=== PATIENT | female | born 1950 | race Two or more races ===

== ENCOUNTER 2018-11-14 03:20 | Inpatient (IN) | payer MEDICARE, OTHER ==
[~2018-11-14] VITALS: Ht 154.9 cm; Wt 71.7 kg
[2018-11-14 06:00] VITALS: BP 122/66
--- NOTE | 2018-11-14 07:30 | NUR ---
NURSE NOTES: received pt in bed, awake, alert, no pain or discomfort at this time. IV access on the RAC 20g, pervious. Skin is intact, no open wound. Abdomen soft, tender at pressure. pt reports constipation x4 days, and dribbling, urinary frequency. Call light within easy reach, siderails upx2, bed locked at the lowest position. Will continue to monitor pt and follow up with the plan of care.
[2018-11-14 08:00] VITALS: BP 116/65
--- NOTE | 2018-11-14 08:07 | NUR ---
HAND-OFF: Report given to CLARISA Anand.
[2018-11-14] MEDS ORDERED: Morphine Sulfate 2mg/ml Inj(IV/IM USE ONLY) IVP PRN (09:00)
[2018-11-14 09:56] LABS: BASOPHILS % (AUTO) 0.7 % (0.0-2.0); EOSINOPHILS % (AUTO) 0.7 % (0.0-3.0); HEMATOCRIT 38.6 % (37.0-47.0); HEMOGLOBIN 13.3 G/DL (12.0-16.0); LYMPHOCYTES % (AUTO) 13.7 % (20.0-45.0); MEAN CORPUSCULAR VOLUME 88 FL (80-99); NEUTROPHILS % (AUTO) 77.8 % (45.0-75.0); PLATELET COUNT 288 K/UL (150-450); RED BLOOD COUNT 4.37 M/UL (4.20-5.40); RED CELL DISTRIBUTION WIDTH 11.3 % (11.6-14.8); WHITE BLOOD COUNT 12.5 K/UL (4.8-10.8)
[2018-11-14 09:58] LABS: ALANINE AMINOTRANSFERASE 31 U/L (12-78); ALBUMIN 2.9 G/DL (3.4-5.0); ALBUMIN/GLOBULIN RATIO 0.7 (1.0-2.7); ALKALINE PHOSPHATASE 70 U/L (46-116); ANION GAP 7 mmol/L (5-15); ASPARTATE AMINO TRANSFERASE 22 U/L (15-37); BILIRUBIN,TOTAL 0.8 MG/DL (0.2-1.0); BLOOD UREA NITROGEN 16 mg/dL (7-18); CALCIUM 8.3 MG/DL (8.5-10.1); CARBON DIOXIDE 26 MMOL/L (21-32); CHLORIDE 104 MMOL/L (98-107); CREATININE 1.2 MG/DL (0.55-1.30); PHOSPHORUS 3.3 MG/DL (2.5-4.9); POTASSIUM 3.7 MMOL/L (3.5-5.1); SODIUM 137 MMOL/L (136-145)
[2018-11-14] MEDS ORDERED: Magnesium Citrate Liq Btl ORAL ONE (10:30)
[2018-11-14] MEDS: D5 1/2NS 1,000 ML IV SCH ×2 (11:48→23:05)
[2018-11-14 12:00] VITALS: BP 109/58
[2018-11-14] MEDS: Heparin 5000 units/ml inj SUBQ SCH ×2 (13:26→21:10)
[2018-11-14 16:00] VITALS: BP 121/70
[2018-11-14] MEDS ORDERED: Isovue-300 100ml vial INJ PRN (16:30)
--- NOTE | 2018-11-14 16:39 | History & Physical ---
History and Physical History & Physicial Dictated for Int Med-DR Monterroso no. [id number] Carlo Crocker MD Nov 14, 2018 16:39
--- NOTE | 2018-11-14 18:00 | Consultation ---
DATE OF CONSULTATION: 11/14/2018 CONSULTING PHYSICIAN: Marv Clark M.D. REFERRING PHYSICIAN: Dion Monterroso M.D. REASON FOR CONSULTATION: Evaluation of nephrolithiasis. HISTORY OF PRESENT ILLNESS: This is a 68-year-old female. She has a history of abdominal pain and was taken to a local [facility] facility where she was evaluated. Apparently, she did have pain on both the right and left side of her abdomen. She had a workup including a CT scan that showed an 18 mm stone of the left UPJ, that is ureteropelvic junction with some hydronephrosis. There was also a question of gallbladder issues. She was subsequently transferred here to [place]. Followup urology evaluation was requested. The patient at this time is relatively comfortable. She does have some urinary frequency, but no burning. PAST MEDICAL HISTORY: As above. PAST SURGICAL HISTORY: Unknown. MEDICATIONS: Current medication list in the hospital reviewed. She is currently on heparin, [place], and Zofran. ALLERGIES: No known drug allergies. SOCIAL HISTORY: She is a nonsmoker. FAMILY HISTORY: Noncontributory. REVIEW OF SYSTEMS: As above. PHYSICAL EXAMINATION: GENERAL: An elderly female in no acute distress. VITAL SIGNS: Temperature is 98.1, blood pressure 116/65, pulse 74, and respirations 20. HEENT: Normocephalic. NECK: Supple. ABDOMEN: Soft. There is minimal CVA tenderness. EXTREMITIES: No clubbing or cyanosis. LABORATORY DATA: White count is 12.5, hemoglobin 13.3, and platelets 288,000. There is no UA on file here at [place]. She did have UA at [facility] that showed a dip positive for blood. BUN is 16 and creatinine 1.2. She apparently did have a renal ultrasound, result is pending. ASSESSMENT: 1. Left-sided nephrolithiasis. 2. Hydronephrosis. 3. Renal colic secondary to above. 4. Urinary frequency. 5. Hematuria. 6. Rule out neurogenic bladder. PLAN AND DISCUSSION: Again, the patient has a relatively large stone of the left ureteropelvic junction with some hydronephrosis. This has likely been there for some time. She did have some pain, which is better now. She will be monitored. We will follow up on the results of the renal ultrasound and I will also order a KUB and go from there. At some point, she will probably need to have lithotripsy procedure with stent placement. I did discuss this with her and we will schedule this based on her pain status. Thank you, Dr. Monterroso, for asking me to see this patient in consultation. Marv Clark M.D. DR: TREVIN JOB#: [id number] CC:
--- NOTE | 2018-11-14 18:00 | NUR ---
NURSE NOTES: Strained all urine voided at the plastic "hat", no stone particle found. Done TWE, pt had large amount of brown BM at the toilet. No complain of pain, nausea or vomiting throughout the shift.
--- NOTE | 2018-11-14 19:03 | NUR ---
HAND-OFF: Report given to CLARISA Johnson.
--- NOTE | 2018-11-14 19:41 | Consultation ---
History of Present Illness Present Illness Allergies: Coded Allergies: No Known Allergies (Unverified , 11/14/18) Patient History Healthcare decision maker Resuscitation status Full Code Advanced Directive on File Physical Exam Last 24 Hour Vital Signs Date Time Temp Pulse Resp B/P (MAP) Pulse Ox O2 Delivery O2 Flow Rate FiO2 11/14/18 16:00 98.8 77 18 121/70 (87) 94 11/14/18 12:00 97.1 80 20 109/58 (75) 93 11/14/18 10:00 Room Air 11/14/18 08:00 98.1 74 20 116/65 (82) 94 11/14/18 06:00 98.2 76 16 122/66 (84) 93 Laboratory Tests Test 11/14/18 09:25 White Blood Count 12.5 K/UL (4.8-10.8) H Red Blood Count 4.37 M/UL (4.20-5.40) Hemoglobin 13.3 G/DL (12.0-16.0) Hematocrit 38.6 % (37.0-47.0) Mean Corpuscular Volume 88 FL (80-99) Mean Corpuscular Hemoglobin 30.4 PG (27.0-31.0) Mean Corpuscular Hemoglobin Concent 34.4 G/DL (32.0-36.0) Red Cell Distribution Width 11.3 % (11.6-14.8) L Platelet Count 288 K/UL (150-450) Mean Platelet Volume 5.9 FL (6.5-10.1) L Neutrophils (%) (Auto) 77.8 % (45.0-75.0) H Lymphocytes (%) (Auto) 13.7 % (20.0-45.0) L Monocytes (%) (Auto) 7.0 % (1.0-10.0) Eosinophils (%) (Auto) 0.7 % (0.0-3.0) Basophils (%) (Auto) 0.7 % (0.0-2.0) Sodium Level 137 MMOL/L (136-145) Potassium Level 3.7 MMOL/L (3.5-5.1) Chloride Level 104 MMOL/L (98-107) Carbon Dioxide Level 26 MMOL/L (21-32) Anion Gap 7 mmol/L (5-15) Blood Urea Nitrogen 16 mg/dL (7-18) Creatinine 1.2 MG/DL (0.55-1.30) Estimat Glomerular Filtration Rate 45.0 mL/min (>60) Glucose Level 102 MG/DL (74-106) Calcium Level 8.3 MG/DL (8.5-10.1) L Phosphorus Level 3.3 MG/DL (2.5-4.9) Magnesium Level 2.2 MG/DL (1.8-2.4) Total Bilirubin 0.8 MG/DL (0.2-1.0) Aspartate Amino Transf (AST/SGOT) 22 U/L (15-37) Alanine Aminotransferase (ALT/SGPT) 31 U/L (12-78) Alkaline Phosphatase 70 U/L (46-116) Total Protein 6.9 G/DL (6.4-8.2) Albumin 2.9 G/DL (3.4-5.0) L Globulin 4.0 g/dL Albumin/Globulin Ratio 0.7 (1.0-2.7) L Height (Feet): 5 Height (Inches): 1.00 Weight (Pounds): 160 Medications Current Medications Medications (Trade) Dose Ordered Sig/Danielle Route PRN Reason Start Time Stop Time Status Last Admin Dose Admin Acetaminophen (Tylenol) 650 mg Q6H PRN ORAL Mild Pain/Temp > 100.5 11/14/18 09:00 12/14/18 08:59 Acetaminophen/ Hydrocodone Bitart ([place] 5/325) 1 tab Q6H PRN ORAL Moderate Pain (Pain Scale 4-6) 11/14/18 09:00 11/21/18 08:59 Barium Sulfate (Readi-Cat 2) 450 ml NOW PRN ORAL Radiology Procedure 11/14/18 16:30 11/16/18 16:28 Dextrose/Sodium Chloride 1,000 ml @ 75 mls/hr [id number] IV 11/14/18 09:45 12/14/18 09:44 11/14/18 11:48 Heparin Sodium (Porcine) (Heparin 5000 units/ml) 5,000 units EVERY 8 HOURS SUBQ 11/14/18 14:00 12/14/18 13:59 11/14/18 13:26 Iopamidol (Isovue-300 100ml) 100 ml NOW PRN INJ Radiology Procedure 11/14/18 16:30 11/16/18 16:29 Morphine Sulfate (Morphine Sulfate) 2 mg Q4H PRN IVP Severe Pain (Pain Scale 7-10) 11/14/18 09:00 11/21/18 08:59 Ondansetron HCl (Zofran) 4 mg Q4H PRN IVP Nausea & Vomiting 11/14/18 09:00 12/14/18 08:59 Kala Bhat MD Nov 14, 2018 19:41
[2018-11-14 20:00] VITALS: BP_SYST 121; BP_SYST 142; BP_DIAS 70
--- NOTE | 2018-11-14 20:00 | History and Physical Report ---
DATE OF ADMISSION: 11/14/2018 CHIEF COMPLAINT: The patient is a 68-year-old female, who presents with chief complaint of left flank pain, nausea, and vomiting. HISTORY OF PRESENT ILLNESS: It began four days prior to admission. The patient began to experience left flank pain. The pain now radiates to the periumbilical region. The patient initially presented to [facility] emergency room. A CT scan of the abdomen revealed a 19 mm obstructing left ureteral pelvic junction calculus. Of note, there was also a distended gallbladder with sludge noted. The patient is transferred to [facility] for insurance purposes. The patient is admitted with left ureteropelvic junction calculus. REVIEW OF SYSTEMS: CONSTITUTIONAL: The patient denies weight loss or gain. The patient denies fevers or chills. HEENT: The patient denies ear or throat pain. The patient denies headache. CARDIOVASCULAR: The patient denies palpitation or chest pain. CHEST: The patient denies wheeze or shortness of breath. ABDOMINAL: The patient complains of left flank pain, radiating to the periumbilical region as above. The patient complains of nausea and vomiting as above. The patient complains of constipation. The patient denies diarrhea. GENITOURINARY: The patient denies dysuria, hematuria, or increased frequency of urination. NEUROMUSCULAR: The patient denies seizures or generalized weakness. PAST MEDICAL HISTORY: The patient denies. PAST SURGICAL HISTORY: Significant for bilateral ovarian cyst removal. CURRENT MEDICATIONS: The patient denies. ALLERGIES: No known drug allergies. SOCIAL HISTORY: The patient is . The patient denies tobacco use, having quit many years previously. The patient denies alcohol use. PHYSICAL EXAMINATION: VITAL SIGNS: Temperature 99.2, respirations 18, pulse 96, blood pressure 119/54. GENERAL: The patient is a well-developed, well-nourished, slightly obese, female, in no apparent distress. HEENT: Eyes, pupils are equal and responsive to light and accommodation. Extraocular movements are intact. NECK: Supple without lymphadenopathy. CHEST: Lungs are clear to auscultation bilaterally without wheezes or rales. CARDIOVASCULAR: Regular rate. S1 and S2 normal without murmurs, rubs, or gallops. ABDOMEN: Soft, tenderness to palpation on the left lower quadrant without rebound or guarding. No evidence of hepatosplenomegaly. EXTREMITIES: Negative for clubbing, cyanosis, or edema. RECTAL/GENITAL: Refused. NEUROLOGIC: Cranial nerves II through XII are grossly intact without focal deficits. Motor strength is 5/5 bilaterally. Deep tendon reflexes are 2+ plantar. LABORATORY STUDIES: WBC 12.8, hemoglobin 14.3, hematocrit 42.1, and platelets 283,000. Sodium 133, potassium 3.3, chloride 97, CO2 27, BUN 18, creatinine 1.03. Urinalysis showed 2+ leukocyte esterase. CT scan of the abdomen and pelvis revealed 19 mm left ureteropelvic junction calculus with obstruction. ASSESSMENT: This is a 68-year-old female. 1. Left flank pain. 2. Left ureteropelvic junction calculus. 3. Nausea with vomiting. 4. Incidental finding of cholecystitis. TREATMENT: 1. Left flank pain/left ureteropelvic junction calculus. A Urology consultation has been obtained with Dr. Clark. The patient may require cystoscopy with stone removal. We will follow recommendations of Urology. The patient has been receiving morphine for pain control. 2. Nausea with vomiting. The patient has been offered Zofran p.r.n. for nausea and vomiting. Nausea and vomiting may be secondary to acute cholecystitis versus left ureteropelvic junction calculus as above. 3. Cholecystitis. A General Surgery consultation has been obtained with Dr. Medellin. The patient was evaluated by surgery at [facility] and was deemed to be not eligible for surgery at this time. Carlo Crocker M.D. DR: ANGELA JOB#: [id number] CC:
--- NOTE | 2018-11-14 20:00 | NUR ---
NURSE NOTES: PATIENT IN BED, AWAKE, ALERT, VERBALLY RESPONSIVE. IV IN PLACE, RUNNING FLUIDS. STRAINED URINE, NO STONES NOTED. NO S/S DISTRESS NOTED. BED IN LOWEST POSITION, CALL LIGHT WITHIN REACH, BED ALARM ON. WILL CONTINUE TO MONITOR.
--- NOTE | 2018-11-14 20:10 | Consultation ---
History of Present Illness Present Illness HPI This is a 68-year-old female presented to [facility] for evaluation of worsening abdominal pain left flank pain nausea and emesis. Patient states that it for a few days and has stayed intermittent causing her discomfort. Upon admission surgery called to evaluate for abdominal pain. Patient seen, patient evaluated, chart reviewed. States the pain is still present but mildly better with pain medication. Imaging as below. Leukocytosis on admission pain described as cramping lower abdominal left flank discomfort Allergies: Coded Allergies: No Known Allergies (Unverified , 11/14/18) Patient History History Provided By: Patient, Medical Record, PMD Healthcare decision maker Resuscitation status Full Code Advanced Directive on File Past Medical/Surgical History Past Medical/Surgical History: (1) Abdominal pain (2) Kidney stone Review of Systems Review of Symptoms General ROS: no weight loss or fever Psychological ROS: no depression or mood changes, no memory loss Ophthalmic ROS: no visual changes or eye irritation ENT ROS: no nasal congestion, hearing loss, dizziness Allergy and Immunology ROS: no allergic symptoms or urticaria Hematological and Lymphatic ROS: no swollen glands, unusual bleeding or bruising Endocrine ROS: no polyuria, polydipsia, weight changes, temperature intolerance Respiratory ROS: no cough, shortness of breath, or wheezing Cardiovascular ROS: no chest pain or dyspnea on exertion Gastrointestinal ROS: abdominal pain, no bright red blood in stool. Musculoskeletal ROS: no myalgias or arthralgias Neurological ROS: no TIA or stroke symptoms Dermatological ROS: no new or changing skin lesions, rashes or pruritis Physical Exam Physical Exam General appearance: alert, cooperative, no distress, appears stated age Head: Normocephalic, without obvious abnormality, atraumatic Eyes: conjunctivae/corneas clear. PERRL, EOM's intact. Fundi benign Throat: Lips, mucosa, and tongue normal. Teeth and gums normal Neck: supple, symmetrical, trachea midline, no adenopathy, thyroid: not enlarged, symmetric, no tenderness/mass/nodules, no carotid bruit and no JVD Lungs: clear to auscultation bilaterally Heart: regular rate and rhythm, S1, S2 normal, no murmur, click, rub or gallop Abdomen: soft, non-tender. Bowel sounds normal. No masses, no organomegaly. left flank tender Extremities: extremities normal, atraumatic, no cyanosis or edema Pulses: 2+ and symmetric Skin: Skin color, texture, turgor normal. No rashes or lesions Neurologic: Grossly normal Last 24 Hour Vital Signs Date Time Temp Pulse Resp B/P (MAP) Pulse Ox O2 Delivery O2 Flow Rate FiO2 11/14/18 16:00 98.8 77 18 121/70 (87) 94 11/14/18 12:00 97.1 80 20 109/58 (75) 93 11/14/18 10:00 Room Air 11/14/18 08:00 98.1 74 20 116/65 (82) 94 11/14/18 06:00 98.2 76 16 122/66 (84) 93 Laboratory Tests Test 11/14/18 09:25 White Blood Count 12.5 K/UL (4.8-10.8) H Red Blood Count 4.37 M/UL (4.20-5.40) Hemoglobin 13.3 G/DL (12.0-16.0) Hematocrit 38.6 % (37.0-47.0) Mean Corpuscular Volume 88 FL (80-99) Mean Corpuscular Hemoglobin 30.4 PG (27.0-31.0) Mean Corpuscular Hemoglobin Concent 34.4 G/DL (32.0-36.0) Red Cell Distribution Width 11.3 % (11.6-14.8) L Platelet Count 288 K/UL (150-450) Mean Platelet Volume 5.9 FL (6.5-10.1) L Neutrophils (%) (Auto) 77.8 % (45.0-75.0) H Lymphocytes (%) (Auto) 13.7 % (20.0-45.0) L Monocytes (%) (Auto) 7.0 % (1.0-10.0) Eosinophils (%) (Auto) 0.7 % (0.0-3.0) Basophils (%) (Auto) 0.7 % (0.0-2.0) Sodium Level 137 MMOL/L (136-145) Potassium Level 3.7 MMOL/L (3.5-5.1) Chloride Level 104 MMOL/L (98-107) Carbon Dioxide Level 26 MMOL/L (21-32) Anion Gap 7 mmol/L (5-15) Blood Urea Nitrogen 16 mg/dL (7-18) Creatinine 1.2 MG/DL (0.55-1.30) Estimat Glomerular Filtration Rate 45.0 mL/min (>60) Glucose Level 102 MG/DL (74-106) Calcium Level 8.3 MG/DL (8.5-10.1) L Phosphorus Level 3.3 MG/DL (2.5-4.9) Magnesium Level 2.2 MG/DL (1.8-2.4) Total Bilirubin 0.8 MG/DL (0.2-1.0) Aspartate Amino Transf (AST/SGOT) 22 U/L (15-37) Alanine Aminotransferase (ALT/SGPT) 31 U/L (12-78) Alkaline Phosphatase 70 U/L (46-116) Total Protein 6.9 G/DL (6.4-8.2) Albumin 2.9 G/DL (3.4-5.0) L Globulin 4.0 g/dL Albumin/Globulin Ratio 0.7 (1.0-2.7) L Height (Feet): 5 Height (Inches): 1.00 Weight (Pounds): 160 Medications Current Medications Medications (Trade) Dose Ordered Sig/Danielle Route PRN Reason Start Time Stop Time Status Last Admin Dose Admin Acetaminophen (Tylenol) 650 mg Q6H PRN ORAL Mild Pain/Temp > 100.5 11/14/18 09:00 12/14/18 08:59 Acetaminophen/ Hydrocodone Bitart ([place] 5/325) 1 tab Q6H PRN ORAL Moderate Pain (Pain Scale 4-6) 11/14/18 09:00 11/21/18 08:59 Barium Sulfate (Readi-Cat 2) 450 ml NOW PRN ORAL Radiology Procedure 11/14/18 16:30 11/16/18 16:28 Dextrose/Sodium Chloride 1,000 ml @ 75 mls/hr [id number] IV 11/14/18 09:45 12/14/18 09:44 11/14/18 11:48 Heparin Sodium (Porcine) (Heparin 5000 units/ml) 5,000 units EVERY 8 HOURS SUBQ 11/14/18 14:00 12/14/18 13:59 11/14/18 13:26 Iopamidol (Isovue-300 100ml) 100 ml NOW PRN INJ Radiology Procedure 11/14/18 16:30 11/16/18 16:29 Morphine Sulfate (Morphine Sulfate) 2 mg Q4H PRN IVP Severe Pain (Pain Scale 7-10) 11/14/18 09:00 11/21/18 08:59 Ondansetron HCl (Zofran) 4 mg Q4H PRN IVP Nausea & Vomiting 11/14/18 09:00 12/14/18 08:59 Assessment/Plan Problem List: (1) Abdominal pain Assessment & Plan: 68-year-old female with abdominal pain, nausea, emesis, leukocytosis. Elevated ESR and CRP. On examination abdomen fairly benign but does have left flank tenderness. Nephrolithiasis as per urology. Appreciate urology input. No acute general surgery intervention recommended. Okay for diet from surgical standpoint We will follow with serial abdominal examinations thank you for allowing me to participate in patient's care trend labs ICD Codes: R10.9 - Unspecified abdominal pain SNOMED: 85125198 (2) Kidney stone ICD Codes: N20.0 - Calculus of kidney SNOMED: [id number] Thomas Medellin Nov 14, 2018 20:10
[2018-11-14] MEDS: HYDROcodone/Acetamin 5/325 tab ORAL PRN (21:02)
--- NOTE | 2018-11-14 21:02 | NUR ---
NURSE NOTES: PATIENT HAD COMPLAINTS OF PAIN. [place] PRN WAS GIVEN ORDERED. FAMILY AT BEDSIDE. PATIENT MADE AWARE OF NPO STATUS AT MIDNIGHT, PATIENT VERBALIZED UNDERSTANDING. WILL CONTINUE TO MONITOR.
[2018-11-14 22:49] LABS: APPEARANCE,URINE CLEAR; BILIRUBIN, URINE NEGATIVE (NEGATIVE); COLOR,URINE PALE YELLOW; GLUCOSE, URINE (UA) NEGATIVE (NEGATIVE); KETONES,URINE NEGATIVE (NEGATIVE); LEUKOCYTE ESTERASE ,URINE 3+ (NEGATIVE); NITRITE,URINE NEGATIVE (NEGATIVE); PH,URINE 6 (4.5-8.0); PROTEIN,URINE 1+ (NEGATIVE); UROBILINOGEN,URINE NORMAL MG/DL (0.0-1.0)
[2018-11-15] VITALS: BP 112/65
[2018-11-15] MEDS: D5 1/2NS 1,000 ML IV SCH ×2 (03:19→21:15)
[2018-11-15 04:20] VITALS: BP 112/65
[2018-11-15] MEDS: Heparin 5000 units/ml inj SUBQ SCH ×3 (05:56→21:14)
--- NOTE | 2018-11-15 06:08 | NUR ---
NURSE NOTES: STRAINED URINE, NO STONES NOTED.
--- NOTE | 2018-11-15 07:16 | NUR ---
HAND-OFF: Report given to MICHAEL ALMONTE RN.
[2018-11-15 07:47] LABS: BASOPHILS % (AUTO) 1.2 % (0.0-2.0); EOSINOPHILS % (AUTO) 2.9 % (0.0-3.0); HEMATOCRIT 40.5 % (37.0-47.0); HEMOGLOBIN 13.8 G/DL (12.0-16.0); LYMPHOCYTES % (AUTO) 24.8 % (20.0-45.0); MEAN CORPUSCULAR VOLUME 89 FL (80-99); MONOCYTES % (AUTO) 6.3 % (1.0-10.0); NEUTROPHILS % (AUTO) 64.9 % (45.0-75.0); PLATELET COUNT 323 K/UL (150-450); RED BLOOD COUNT 4.57 M/UL (4.20-5.40); RED CELL DISTRIBUTION WIDTH 11.3 % (11.6-14.8); WHITE BLOOD COUNT 8.1 K/UL (4.8-10.8)
[2018-11-15 08:00] VITALS: BP 122/62
[2018-11-15 08:05] LABS: ALANINE AMINOTRANSFERASE 36 U/L (12-78); ALBUMIN 2.9 G/DL (3.4-5.0); ALBUMIN/GLOBULIN RATIO 0.6 (1.0-2.7); ALKALINE PHOSPHATASE 76 U/L (46-116); ANION GAP 7 mmol/L (5-15); ASPARTATE AMINO TRANSFERASE 30 U/L (15-37); BILIRUBIN,TOTAL 0.5 MG/DL (0.2-1.0); BLOOD UREA NITROGEN 14 mg/dL (7-18); CALCIUM 8.8 MG/DL (8.5-10.1); CARBON DIOXIDE 28 MMOL/L (21-32); CHLORIDE 101 MMOL/L (98-107); CREATININE 1.1 MG/DL (0.55-1.30); POTASSIUM 3.5 MMOL/L (3.5-5.1); SODIUM 136 MMOL/L (136-145)
--- NOTE | 2018-11-15 08:05 | Urology Progress Note ---
Assessment/Plan Assessment/Plan: 1. Left-sided nephrolithiasis. 2. Hydronephrosis. 3. Renal colic secondary to above. 4. Urinary frequency. 5. Hematuria. 6. Rule out neurogenic bladder. monitor clinically await KUB will eventually need litho/stent I don't feel repeat CT is necessary (pt had one at [place]) Subjective Allergies: Coded Allergies: No Known Allergies (Unverified , 11/14/18) Subjective all noted, felt better after had BM, not much pain Objective Last 24 Hour Vital Signs Date Time Temp Pulse Resp B/P (MAP) Pulse Ox O2 Delivery O2 Flow Rate FiO2 11/15/18 00:00 97.3 61 18 112/65 (81) 93 11/14/18 22:52 Room Air 11/14/18 21:32 98.8 11/14/18 20:00 98.4 76 18 142/70 (94) 95 11/14/18 16:00 98.8 77 18 121/70 (87) 94 11/14/18 12:00 97.1 80 20 109/58 (75) 93 11/14/18 10:00 Room Air Intake and Output 11/14/18 11/15/18 19:00 07:00 Intake Total 950 ml 750 ml Balance 950 ml 750 ml Intake IV Total 450 ml 750 ml Other 500 ml # Voids 2 Current Medications Medications (Trade) Dose Ordered Sig/Danielle Route PRN Reason Start Time Stop Time Status Last Admin Dose Admin Acetaminophen (Tylenol) 650 mg Q6H PRN ORAL Mild Pain/Temp > 100.5 11/14/18 09:00 12/14/18 08:59 Acetaminophen/ Hydrocodone Bitart ([place] 5/325) 1 tab Q6H PRN ORAL Moderate Pain (Pain Scale 4-6) 11/14/18 09:00 11/21/18 08:59 11/14/18 21:02 Barium Sulfate (Readi-Cat 2) 450 ml NOW PRN ORAL Radiology Procedure 11/14/18 16:30 11/16/18 16:28 Dextrose/Sodium Chloride 1,000 ml @ 75 mls/hr [id number] IV 11/14/18 09:45 12/14/18 09:44 11/15/18 03:19 Heparin Sodium (Porcine) (Heparin 5000 units/ml) 5,000 units EVERY 8 HOURS SUBQ 11/14/18 14:00 12/14/18 13:59 11/15/18 05:56 Iopamidol (Isovue-300 100ml) 100 ml NOW PRN INJ Radiology Procedure 11/14/18 16:30 11/16/18 16:29 Morphine Sulfate (Morphine Sulfate) 2 mg Q4H PRN IVP Severe Pain (Pain Scale 7-10) 11/14/18 09:00 11/21/18 08:59 Ondansetron HCl (Zofran) 4 mg Q4H PRN IVP Nausea & Vomiting 11/14/18 09:00 12/14/18 08:59 Laboratory Tests 11/14/18 09:25: White Blood Count 12.5H, Red Blood Count 4.37, Hemoglobin 13.3, Hematocrit 38.6 , Mean Corpuscular Volume 88, Mean Corpuscular Hemoglobin 30.4, Mean Corpuscular Hemoglobin Concent 34.4, Red Cell Distribution Width 11.3L, Platelet Count 288, Mean Platelet Volume 5.9L, Neutrophils (%) (Auto) 77.8H, Lymphocytes (%) (Auto) 13.7L, Monocytes (%) (Auto) 7.0, Eosinophils (%) (Auto) 0.7, Basophils (%) (Auto) 0.7, Sodium Level 137, Potassium Level 3.7, Chloride Level 104, Carbon Dioxide Level 26, Anion Gap 7, Blood Urea Nitrogen 16, Creatinine 1.2, Estimat Glomerular Filtration Rate 45.0, Glucose Level 102, Calcium Level 8.3L, Phosphorus Level 3.3, Magnesium Level 2.2, Total Bilirubin 0.8, Aspartate Amino Transf (AST/SGOT) 22, Alanine Aminotransferase (ALT/SGPT) 31, Alkaline Phosphatase 70, Total Protein 6.9, Albumin 2.9L, Globulin 4.0, Albumin/Globulin Ratio 0.7L 11/14/18 19:50: Urine Color Pale yellow, Urine Appearance Clear, Urine pH 6, Urine Specific [place] 1.010, Urine Protein 1+H, Urine Glucose (UA) Negative, Urine Ketones Negative, Urine Blood 3+H, Urine Nitrite Negative, Urine Bilirubin Negative, Urine Urobilinogen Normal, Urine Leukocyte Esterase 3+H, Urine RBC 5-10H, Urine WBC 10-15H, Urine Squamous Epithelial Cells Few, Urine Bacteria Few 11/15/18 06:45: White Blood Count 8.1, Red Blood Count 4.57, Hemoglobin 13.8, Hematocrit 40.5, Mean Corpuscular Volume 89, Mean Corpuscular Hemoglobin 30.2, Mean Corpuscular Hemoglobin Concent 34.1, Red Cell Distribution Width 11.3L, Platelet Count 323, Mean Platelet Volume 6.3L, Neutrophils (%) (Auto) 64.9, Lymphocytes (%) (Auto) 24.8, Monocytes (%) (Auto) 6.3, Eosinophils (%) (Auto) 2.9, Basophils (%) (Auto ) 1.2, Sodium Level [Pending], Potassium Level [Pending], Chloride Level [ Pending], Carbon Dioxide Level [Pending], Blood Urea Nitrogen [Pending], Creatinine [Pending], Estimat Glomerular Filtration Rate [Pending], Glucose Level [Pending], Calcium Level [Pending], Total Bilirubin [Pending], Aspartate Amino Transf (AST/SGOT) [Pending], Alanine Aminotransferase (ALT/SGPT) [Pending] , Alkaline Phosphatase [Pending], Total Protein [Pending], Albumin [Pending], Globulin [Pending], Erythrocyte Sedimentation Rate [Pending], Prothrombin Time [ Pending], Prothromb Time International Ratio [Pending], Activated Partial Thromboplast Time [Pending], C-Reactive Protein, Quantitative [Pending], Amylase Level [Pending], Lipase [Pending] Height (Feet): 5 Height (Inches): 1.00 Weight (Pounds): 160 Objective exam stable, no CVAT Marv Clark MD Nov 15, 2018 08:05
--- NOTE | 2018-11-15 08:20 | NUR ---
NURSE NOTES: Received pt in bed, awake, alert, c/o abdominal pain 8 but refuses IV pain medication at this time, will offer PO pain med. Pt received visit from dr. Clark, and had abdominal X-ray done. Strained urine, (-) for stone particles. IV access at the [facility], receives IVF, no c/o local pain, no sign of infiltration noted. Bed at the lowest position possible, call light within easy reach, siderails up x3. Willcontinue to monitor pt and follow up with the plan of care.
[2018-11-15] MEDS: HYDROcodone/Acetamin 5/325 tab ORAL PRN ×3 (08:27→23:56)
[2018-11-15 12:00] VITALS: BP 119/61
--- NOTE | 2018-11-15 12:18 | Diagnostic Imaging Report ---
Indication: Abdominal pain Technique: Grayscale and duplex Doppler imaging of the abdomen performed. Comparison: None Findings: The liver is echogenic consistent with fatty infiltration. Doppler interrogation of the main portal vein shows patency with hepatopedal, monophasic flow. In the area of the distal CBD there is a focus of echogenicity which could be a small stone. CBD is between 7 and 8 mm in diameter which is slightly prominent. Clinical correlation is needed. Gallbladder is unremarkable. There is trace ascites. There demonstrated part of the pancreas, aorta and IVC show no definite abnormalities. There is no hydronephrosis. There is a probable bladder stone or focal calcification of the bladder wall measuring 8 to 9 mm. IMPRESSION: Fatty liver Question of a distal CBD stone and mild biliary ductal dilatation. Consider MRCP for further evaluation as warranted clinically. Questionable small bladder stone. Trace ascites
--- NOTE | 2018-11-15 13:42 | Internal Med Progress Note ---
Subjective Date of Service: Nov 15, 2018 Physician Name Carlo Crocker Attending Physician Dion Monterroso MD Current Medications Medications (Trade) Dose Ordered Sig/Danielle Route PRN Reason Start Time Stop Time Status Last Admin Dose Admin Acetaminophen (Tylenol) 650 mg Q6H PRN ORAL Mild Pain/Temp > 100.5 11/14/18 09:00 12/14/18 08:59 Acetaminophen/ Hydrocodone Bitart ([place] 5/325) 1 tab Q6H PRN ORAL Moderate Pain (Pain Scale 4-6) 11/14/18 09:00 11/21/18 08:59 11/15/18 08:27 Barium Sulfate (Readi-Cat 2) 450 ml NOW PRN ORAL Radiology Procedure 11/14/18 16:30 11/16/18 16:28 Dextrose/Sodium Chloride 1,000 ml @ 75 mls/hr [id number] IV 11/14/18 09:45 12/14/18 09:44 11/15/18 03:19 Heparin Sodium (Porcine) (Heparin 5000 units/ml) 5,000 units EVERY 8 HOURS SUBQ 11/14/18 14:00 12/14/18 13:59 11/15/18 13:26 Iopamidol (Isovue-300 100ml) 100 ml NOW PRN INJ Radiology Procedure 11/14/18 16:30 11/16/18 16:29 Morphine Sulfate (Morphine Sulfate) 2 mg Q4H PRN IVP Severe Pain (Pain Scale 7-10) 11/14/18 09:00 11/21/18 08:59 Ondansetron HCl (Zofran) 4 mg Q4H PRN IVP Nausea & Vomiting 11/14/18 09:00 12/14/18 08:59 Allergies: Coded Allergies: No Known Allergies (Unverified , 11/14/18) Objective Last Vital Signs Date Time Temp Pulse Resp B/P (MAP) Pulse Ox O2 Delivery O2 Flow Rate FiO2 11/15/18 12:00 97.8 69 19 119/61 (80) 96 11/15/18 09:00 Room Air Laboratory Tests Test 11/14/18 19:50 11/15/18 06:45 Urine Color Pale yellow Urine Appearance Clear Urine pH 6 (4.5-8.0) Urine Specific [place] 1.010 (1.005-1.035) Urine Protein 1+ (NEGATIVE) H Urine Glucose (UA) Negative (NEGATIVE) Urine Ketones Negative (NEGATIVE) Urine Blood 3+ (NEGATIVE) H Urine Nitrite Negative (NEGATIVE) Urine Bilirubin Negative (NEGATIVE) Urine Urobilinogen Normal MG/DL (0.0-1.0) Urine Leukocyte Esterase 3+ (NEGATIVE) H Urine RBC 5-10 /HPF (0 - 2) H Urine WBC 10-15 /HPF (0 - 2) H Urine Squamous Epithelial Cells Few /LPF (NONE/OCC) Urine Bacteria Few /HPF (NONE) White Blood Count 8.1 K/UL (4.8-10.8) Red Blood Count 4.57 M/UL (4.20-5.40) Hemoglobin 13.8 G/DL (12.0-16.0) Hematocrit 40.5 % (37.0-47.0) Mean Corpuscular Volume 89 FL (80-99) Mean Corpuscular Hemoglobin 30.2 PG (27.0-31.0) Mean Corpuscular Hemoglobin Concent 34.1 G/DL (32.0-36.0) Red Cell Distribution Width 11.3 % (11.6-14.8) L Platelet Count 323 K/UL (150-450) Mean Platelet Volume 6.3 FL (6.5-10.1) L Neutrophils (%) (Auto) 64.9 % (45.0-75.0) Lymphocytes (%) (Auto) 24.8 % (20.0-45.0) Monocytes (%) (Auto) 6.3 % (1.0-10.0) Eosinophils (%) (Auto) 2.9 % (0.0-3.0) Basophils (%) (Auto) 1.2 % (0.0-2.0) Erythrocyte Sedimentation Rate 85 MM/HR (0-30) H Prothrombin Time 10.9 SEC (9.30-11.50) Prothromb Time International Ratio 1.0 (0.9-1.1) Activated Partial Thromboplast Time 32 SEC (23-33) Sodium Level 136 MMOL/L (136-145) Potassium Level 3.5 MMOL/L (3.5-5.1) Chloride Level 101 MMOL/L (98-107) Carbon Dioxide Level 28 MMOL/L (21-32) Anion Gap 7 mmol/L (5-15) Blood Urea Nitrogen 14 mg/dL (7-18) Creatinine 1.1 MG/DL (0.55-1.30) Estimat Glomerular Filtration Rate 49.7 mL/min (>60) Glucose Level 100 MG/DL (74-106) Calcium Level 8.8 MG/DL (8.5-10.1) Total Bilirubin 0.5 MG/DL (0.2-1.0) Aspartate Amino Transf (AST/SGOT) 30 U/L (15-37) Alanine Aminotransferase (ALT/SGPT) 36 U/L (12-78) Alkaline Phosphatase 76 U/L (46-116) C-Reactive Protein, Quantitative 40.9 mg/dL (0.00-0.90) H Total Protein 7.4 G/DL (6.4-8.2) Albumin 2.9 G/DL (3.4-5.0) L Globulin 4.5 g/dL Albumin/Globulin Ratio 0.6 (1.0-2.7) L Amylase Level 37 U/L (25-115) Lipase 90 U/L (73-393) Intake and Output 11/14/18 11/15/18 19:00 07:00 Intake Total 950 ml 750 ml Balance 950 ml 750 ml Intake IV Total 450 ml 750 ml Other 500 ml # Voids 2 Objective PHYSICAL EXAMINATION: GENERAL: The patient is a well-developed, well-nourished, slightly obese, female, in no apparent distress. HEENT: Eyes, pupils are equal and responsive to light and accommodation. Extraocular movements are intact. NECK: Supple without lymphadenopathy. CHEST: Lungs are clear to auscultation bilaterally without wheezes or rales. CARDIOVASCULAR: Regular rate. S1 and S2 normal without murmurs, rubs, or gallops. ABDOMEN: Soft, tenderness to palpation on the left lower quadrant without rebound or guarding. No evidence of hepatosplenomegaly. EXTREMITIES: Negative for clubbing, cyanosis, or edema. RECTAL/GENITAL: Refused. NEUROLOGIC: Cranial nerves II through XII are grossly intact without focal deficits. Motor strength is 5/5 bilaterally. Deep tendon reflexes are 2+ plantar. Assessment/Plan Assessment/Plan ASSESSMENT: This is a 68-year-old female. 1. Left flank pain. 2. Left ureteropelvic junction calculus. 3. Nausea with vomiting. 4. Incidental finding of cholecystitis. TREATMENT: 1. Left flank pain/left ureteropelvic junction calculus. A Urology consultation has been obtained with Dr. Clark. The patient may require cystoscopy with stone removal. We will follow recommendations of Urology. The patient has been receiving morphine for pain control. 2. Nausea with vomiting. The patient has been offered Zofran p.r.n. for nausea and vomiting. Nausea and vomiting may be secondary to acute cholecystitis versus left ureteropelvic junction calculus as above. 3. Cholecystitis. A General Surgery consultation has been obtained with Dr. Medellin. The patient was evaluated by surgery at [facility] and was deemed to be not eligible for surgery at this time. Carlo Crocker MD Nov 15, 2018 13:42
--- NOTE | 2018-11-15 13:58 | Diagnostic Imaging Report ---
Indication: Abdominal pain Comparison: None Single view of the abdomen obtained Findings: Bowel gas pattern is nonspecific. No mass, ectopic calcifications, or abnormal gas collections are identified. The bones are unremarkable. Impression: No acute findings
[2018-11-15 16:00] VITALS: BP 129/64
--- NOTE | 2018-11-15 18:18 | NUR ---
NURSE NOTES: strained all urine pt voided, no stone particles noted. Pt complained of abdominal pain, given Revloc with good pain relief. On clear liquid diet, tolerates well.
--- NOTE | 2018-11-15 19:16 | NUR ---
HAND-OFF: Report given to CLARISA Hills.
--- NOTE | 2018-11-15 19:26 | NUR ---
NURSE NOTES: Received patient awake,alert,verbal,British speaking,resting in bed,comfortable.
[2018-11-15 20:00] VITALS: BP 134/71
--- NOTE | 2018-11-15 20:53 | NUR ---
CASE MANAGEMENT: REVIEW 68Y/FEMALE TRANSFERRED FROM [facility] CC: ABD PAIN . URINARY FREQUENCY SI: NEPHROLITHIASIS . R/O NEUROGENIC BLADDER T 98.2 HR 76 RR 16 BP 122/66 SAT 93% ROOM AIR WBC 12.5 NEUT 77.8 LYMPH 13.7 US ABD - DISTAL CBD STONE AND MILD BILIARY DUCTAL DILATATION IS: MAG CITRATE PO X1 CT ABD/PELVIS BARIUM PO X1 FOR RADIOLOGY PROCEDURE IOPAMIDOL X1 FOR RADIOLOGY PROCEDURE PATIENT ADMITTED TO MED/SURG UNIT 11/14/2018 DCP: PATIENT IS FROM HOME
[2018-11-16 00:13] VITALS: BP 119/73
[2018-11-16 04:00] VITALS: BP 129/74
[2018-11-16] MEDS: Heparin 5000 units/ml inj SUBQ SCH ×3 (06:07→21:31)
--- NOTE | 2018-11-16 07:10 | NUR ---
HAND-OFF: Report given to Inge Dixon RN.
[2018-11-16 07:17] LABS: BASOPHILS % (AUTO) 0.8 % (0.0-2.0); EOSINOPHILS % (AUTO) 3.2 % (0.0-3.0); HEMATOCRIT 37.1 % (37.0-47.0); HEMOGLOBIN 12.6 G/DL (12.0-16.0); LYMPHOCYTES % (AUTO) 23.1 % (20.0-45.0); MEAN CORPUSCULAR VOLUME 88 FL (80-99); MONOCYTES % (AUTO) 8.5 % (1.0-10.0); NEUTROPHILS % (AUTO) 64.4 % (45.0-75.0); PLATELET COUNT 325 K/UL (150-450); RED BLOOD COUNT 4.19 M/UL (4.20-5.40); RED CELL DISTRIBUTION WIDTH 11.2 % (11.6-14.8); WHITE BLOOD COUNT 6.6 K/UL (4.8-10.8)
[2018-11-16 07:29] LABS: ALANINE AMINOTRANSFERASE 36 U/L (12-78); ALBUMIN 2.6 G/DL (3.4-5.0); ALBUMIN/GLOBULIN RATIO 0.6 (1.0-2.7); ALKALINE PHOSPHATASE 72 U/L (46-116); ANION GAP 6 mmol/L (5-15); ASPARTATE AMINO TRANSFERASE 20 U/L (15-37); BILIRUBIN,TOTAL 0.4 MG/DL (0.2-1.0); BLOOD UREA NITROGEN 11 mg/dL (7-18); CALCIUM 8.6 MG/DL (8.5-10.1); CARBON DIOXIDE 28 MMOL/L (21-32); CHLORIDE 104 MMOL/L (98-107); CREATININE 1.1 MG/DL (0.55-1.30); POTASSIUM 3.5 MMOL/L (3.5-5.1); SODIUM 138 MMOL/L (136-145)
[2018-11-16 08:00] VITALS: BP 130/75
--- NOTE | 2018-11-16 08:04 | Urology Progress Note ---
Assessment/Plan Assessment/Plan: 1. Left-sided nephrolithiasis. 2. Hydronephrosis. 3. Renal colic secondary to above. 4. Urinary frequency. 5. Hematuria. 6. Rule out neurogenic bladder. monitor clinically pt poss passed stone already? litho/stent ? will d/w primary service Subjective Allergies: Coded Allergies: No Known Allergies (Unverified , 11/14/18) Subjective all noted, feels fair, not much pain Objective Last 24 Hour Vital Signs Date Time Temp Pulse Resp B/P (MAP) Pulse Ox O2 Delivery O2 Flow Rate FiO2 11/16/18 04:00 97.8 65 18 129/74 (92) 95 11/16/18 00:26 98.2 11/16/18 00:13 98.2 60 18 119/73 (88) 96 11/15/18 21:00 Room Air 11/15/18 20:00 97.8 69 18 134/71 (92) 95 11/15/18 16:00 99.0 57 18 129/64 (85) 95 11/15/18 12:00 97.8 69 19 119/61 (80) 96 11/15/18 09:00 Room Air Intake and Output 11/15/18 11/16/18 19:00 07:00 Intake Total 1175 ml 830 ml Balance 1175 ml 830 ml Intake IV Total 675 ml 830 ml Other 500 ml # Voids 3 Current Medications Medications (Trade) Dose Ordered Sig/Danielle Route PRN Reason Start Time Stop Time Status Last Admin Dose Admin Acetaminophen (Tylenol) 650 mg Q6H PRN ORAL Mild Pain/Temp > 100.5 11/14/18 09:00 12/14/18 08:59 Acetaminophen/ Hydrocodone Bitart ([place] 5/325) 1 tab Q6H PRN ORAL Moderate Pain (Pain Scale 4-6) 11/14/18 09:00 11/21/18 08:59 11/15/18 23:56 Barium Sulfate (Readi-Cat 2) 450 ml NOW PRN ORAL Radiology Procedure 11/14/18 16:30 11/16/18 16:28 Dextrose/Sodium Chloride 1,000 ml @ 75 mls/hr [id number] IV 11/14/18 09:45 12/14/18 09:44 11/15/18 21:15 Heparin Sodium (Porcine) (Heparin 5000 units/ml) 5,000 units EVERY 8 HOURS SUBQ 11/14/18 14:00 12/14/18 13:59 11/16/18 06:07 Iopamidol (Isovue-300 100ml) 100 ml NOW PRN INJ Radiology Procedure 11/14/18 16:30 11/16/18 16:29 Morphine Sulfate (Morphine Sulfate) 2 mg Q4H PRN IVP Severe Pain (Pain Scale 7-10) 11/14/18 09:00 11/21/18 08:59 Ondansetron HCl (Zofran) 4 mg Q4H PRN IVP Nausea & Vomiting 11/14/18 09:00 12/14/18 08:59 Laboratory Tests 11/16/18 06:05: White Blood Count 6.6, Red Blood Count 4.19L, Hemoglobin 12.6, Hematocrit 37.1, Mean Corpuscular Volume 88, Mean Corpuscular Hemoglobin 30.2, Mean Corpuscular Hemoglobin Concent 34.1, Red Cell Distribution Width 11.2L, Platelet Count 325, Mean Platelet Volume 5.8L, Neutrophils (%) (Auto) 64.4, Lymphocytes (%) (Auto) 23.1, Monocytes (%) (Auto) 8.5, Eosinophils (%) (Auto) 3.2H, Basophils (%) (Auto ) 0.8, Sodium Level 138, Potassium Level 3.5, Chloride Level 104, Carbon Dioxide Level 28, Anion Gap 6, Blood Urea Nitrogen 11, Creatinine 1.1, Estimat Glomerular Filtration Rate 49.7, Glucose Level 110H, Calcium Level 8.6, Total Bilirubin 0.4, Aspartate Amino Transf (AST/SGOT) 20, Alanine Aminotransferase ( ALT/SGPT) 36, Alkaline Phosphatase 72, Total Protein 6.7, Albumin 2.6L, Globulin 4.1, Albumin/Globulin Ratio 0.6L, Lipase 72L Height (Feet): 5 Height (Inches): 1.00 Weight (Pounds): 160 Objective exam stable, no CVAT renal u/s noted, no hydro, poss small bladder calc KUB no obvious calc noted Marv Clark MD Nov 16, 2018 08:04
--- NOTE | 2018-11-16 08:12 | NUR ---
NURSE NOTES: Patient is alert and oriented. Patient reports she is straining urine, bur no signs of stone. Patient is eating breakfast. No reports of pain. Side rails are upx2, bed is locked, in lowest position, and call light is within reach. Will continue to monitor.
--- NOTE | 2018-11-16 08:18 | Surgery Progress Note ---
Surgery Progress Note Subjective Additional Comments still with some pain and discomfort xray okay exam slightly improved pain no n/v/f/c urology input noted to monitor clinically Objective Last 24 Hour Vital Signs Date Time Temp Pulse Resp B/P (MAP) Pulse Ox O2 Delivery O2 Flow Rate FiO2 11/16/18 04:00 97.8 65 18 129/74 (92) 95 11/16/18 00:26 98.2 11/16/18 00:13 98.2 60 18 119/73 (88) 96 11/15/18 21:00 Room Air 11/15/18 20:00 97.8 69 18 134/71 (92) 95 11/15/18 16:00 99.0 57 18 129/64 (85) 95 11/15/18 12:00 97.8 69 19 119/61 (80) 96 11/15/18 09:00 Room Air I&O Intake and Output 11/15/18 11/16/18 19:00 07:00 Intake Total 1175 ml 830 ml Balance 1175 ml 830 ml Intake IV Total 675 ml 830 ml Other 500 ml # Voids 3 Cardiovascular: RSR Respiratory: clear Abdomen: soft, tenderness - mild flank discomfort , present bowel sounds, non- distended Extremities: no edema, no tenderness, no cyanosis Laboratory Tests Test 11/16/18 06:05 White Blood Count 6.6 K/UL (4.8-10.8) Red Blood Count 4.19 M/UL (4.20-5.40) L Hemoglobin 12.6 G/DL (12.0-16.0) Hematocrit 37.1 % (37.0-47.0) Mean Corpuscular Volume 88 FL (80-99) Mean Corpuscular Hemoglobin 30.2 PG (27.0-31.0) Mean Corpuscular Hemoglobin Concent 34.1 G/DL (32.0-36.0) Red Cell Distribution Width 11.2 % (11.6-14.8) L Platelet Count 325 K/UL (150-450) Mean Platelet Volume 5.8 FL (6.5-10.1) L Neutrophils (%) (Auto) 64.4 % (45.0-75.0) Lymphocytes (%) (Auto) 23.1 % (20.0-45.0) Monocytes (%) (Auto) 8.5 % (1.0-10.0) Eosinophils (%) (Auto) 3.2 % (0.0-3.0) H Basophils (%) (Auto) 0.8 % (0.0-2.0) Sodium Level 138 MMOL/L (136-145) Potassium Level 3.5 MMOL/L (3.5-5.1) Chloride Level 104 MMOL/L (98-107) Carbon Dioxide Level 28 MMOL/L (21-32) Anion Gap 6 mmol/L (5-15) Blood Urea Nitrogen 11 mg/dL (7-18) Creatinine 1.1 MG/DL (0.55-1.30) Estimat Glomerular Filtration Rate 49.7 mL/min (>60) Glucose Level 110 MG/DL (74-106) H Calcium Level 8.6 MG/DL (8.5-10.1) Total Bilirubin 0.4 MG/DL (0.2-1.0) Aspartate Amino Transf (AST/SGOT) 20 U/L (15-37) Alanine Aminotransferase (ALT/SGPT) 36 U/L (12-78) Alkaline Phosphatase 72 U/L (46-116) Total Protein 6.7 G/DL (6.4-8.2) Albumin 2.6 G/DL (3.4-5.0) L Globulin 4.1 g/dL Albumin/Globulin Ratio 0.6 (1.0-2.7) L Lipase 72 U/L (73-393) L Plan Problems: (1) Abdominal pain Assessment & Plan: 68-year-old female with abdominal pain, nausea, emesis, leukocytosis. Elevated ESR and CRP. On examination abdomen fairly benign but does have left flank tenderness. Nephrolithiasis as per urology. Appreciate urology input. No acute general surgery intervention recommended. Okay for diet from surgical standpoint urology states to monitor clinically trend labs start diet We will follow with serial abdominal examinations thank you for allowing me to participate in patient's care trend labs (2) Kidney stone Thomas Medellin Nov 16, 2018 08:18
[2018-11-16] MEDS: HYDROcodone/Acetamin 5/325 tab ORAL PRN ×2 (09:10→19:44)
[2018-11-16 12:00] VITALS: BP 116/58
--- NOTE | 2018-11-16 13:26 | Pulmonology Progress Note ---
Assessment/Plan Problems: (1) Renal colic (2) Abdominal pain Assessment/Plan no more pain check electrolytes iv fluids symptomatic treatment/ Subjective ROS Limited/Unobtainable: No Interval Events: pain is better controlled Constitutional: Reports: no symptoms HEENT: Repors: no symptoms Respiratory: Reports: no symptoms Allergies: Coded Allergies: No Known Allergies (Unverified , 11/14/18) Objective Last 24 Hour Vital Signs Date Time Temp Pulse Resp B/P (MAP) Pulse Ox O2 Delivery O2 Flow Rate FiO2 11/16/18 12:00 98.4 58 18 116/58 (77) 96 11/16/18 08:00 Room Air 11/16/18 08:00 97.9 62 18 130/75 (93) 96 11/16/18 04:00 97.8 65 18 129/74 (92) 95 11/16/18 00:26 98.2 11/16/18 00:13 98.2 60 18 119/73 (88) 96 11/15/18 21:00 Room Air 11/15/18 20:00 97.8 69 18 134/71 (92) 95 11/15/18 16:00 99.0 57 18 129/64 (85) 95 Intake and Output 11/15/18 11/16/18 19:00 07:00 Intake Total 1175 ml 830 ml Balance 1175 ml 830 ml Intake IV Total 675 ml 830 ml Other 500 ml # Voids 3 General Appearance: WD/WN HEENT: anicteric Respiratory/Chest: chest wall non-tender, lungs clear Breasts: no masses Cardiovascular: normal peripheral pulses Abdomen: normal bowel sounds, non distended Extremities: no clubbing Microbiology Date/Time Source Procedure Growth Status 11/14/18 19:50 Urine,Clean Catch Urine Culture - Preliminary NO GROWTH Resulted Laboratory Tests 11/16/18 06:05: White Blood Count 6.6, Red Blood Count 4.19L, Hemoglobin 12.6, Hematocrit 37.1, Mean Corpuscular Volume 88, Mean Corpuscular Hemoglobin 30.2, Mean Corpuscular Hemoglobin Concent 34.1, Red Cell Distribution Width 11.2L, Platelet Count 325, Mean Platelet Volume 5.8L, Neutrophils (%) (Auto) 64.4, Lymphocytes (%) (Auto) 23.1, Monocytes (%) (Auto) 8.5, Eosinophils (%) (Auto) 3.2H, Basophils (%) (Auto ) 0.8, Sodium Level 138, Potassium Level 3.5, Chloride Level 104, Carbon Dioxide Level 28, Anion Gap 6, Blood Urea Nitrogen 11, Creatinine 1.1, Estimat Glomerular Filtration Rate 49.7, Glucose Level 110H, Calcium Level 8.6, Total Bilirubin 0.4, Aspartate Amino Transf (AST/SGOT) 20, Alanine Aminotransferase ( ALT/SGPT) 36, Alkaline Phosphatase 72, Total Protein 6.7, Albumin 2.6L, Globulin 4.1, Albumin/Globulin Ratio 0.6L, Lipase 72L Current Medications Medications (Trade) Dose Ordered Sig/Danielle Route PRN Reason Start Time Stop Time Status Last Admin Dose Admin Acetaminophen (Tylenol) 650 mg Q6H PRN ORAL Mild Pain/Temp > 100.5 11/14/18 09:00 12/14/18 08:59 Acetaminophen/ Hydrocodone Bitart ([place] 5/325) 1 tab Q6H PRN ORAL Moderate Pain (Pain Scale 4-6) 11/14/18 09:00 11/21/18 08:59 11/16/18 09:10 Barium Sulfate (Readi-Cat 2) 450 ml NOW PRN ORAL Radiology Procedure 11/14/18 16:30 11/16/18 16:28 Dextrose/Sodium Chloride 1,000 ml @ 75 mls/hr [id number] IV 11/14/18 09:45 12/14/18 09:44 11/15/18 21:15 Heparin Sodium (Porcine) (Heparin 5000 units/ml) 5,000 units EVERY 8 HOURS SUBQ 11/14/18 14:00 12/14/18 13:59 11/16/18 06:07 Iopamidol (Isovue-300 100ml) 100 ml NOW PRN INJ Radiology Procedure 11/14/18 16:30 11/16/18 16:29 Morphine Sulfate (Morphine Sulfate) 2 mg Q4H PRN IVP Severe Pain (Pain Scale 7-10) 11/14/18 09:00 11/21/18 08:59 Ondansetron HCl (Zofran) 4 mg Q4H PRN IVP Nausea & Vomiting 11/14/18 09:00 12/14/18 08:59 Kala Bhat MD Nov 16, 2018 13:26
[2018-11-16] MEDS: D5 1/2NS 1,000 ML IV SCH (14:31)
[2018-11-16 16:00] VITALS: BP 117/49
--- NOTE | 2018-11-16 16:52 | Internal Med Progress Note ---
Subjective Date of Service: Nov 16, 2018 Physician Name Carlo Crocker Attending Physician Dion Monterroso MD Current Medications Medications (Trade) Dose Ordered Sig/Danielle Route PRN Reason Start Time Stop Time Status Last Admin Dose Admin Acetaminophen (Tylenol) 650 mg Q6H PRN ORAL Mild Pain/Temp > 100.5 11/14/18 09:00 12/14/18 08:59 Acetaminophen/ Hydrocodone Bitart ([place] 5/325) 1 tab Q6H PRN ORAL Moderate Pain (Pain Scale 4-6) 11/14/18 09:00 11/21/18 08:59 11/16/18 09:10 Dextrose/Sodium Chloride 1,000 ml @ 75 mls/hr [id number] IV 11/14/18 09:45 12/14/18 09:44 11/16/18 14:31 Heparin Sodium (Porcine) (Heparin 5000 units/ml) 5,000 units EVERY 8 HOURS SUBQ 11/14/18 14:00 12/14/18 13:59 11/16/18 14:00 Morphine Sulfate (Morphine Sulfate) 2 mg Q4H PRN IVP Severe Pain (Pain Scale 7-10) 11/14/18 09:00 11/21/18 08:59 Ondansetron HCl (Zofran) 4 mg Q4H PRN IVP Nausea & Vomiting 11/14/18 09:00 12/14/18 08:59 Allergies: Coded Allergies: No Known Allergies (Unverified , 11/14/18) ROS Limited/Unobtainable: No Constitutional: Reports: no symptoms HEENT: Reports: no symptoms Cardiovascular: Reports: no symptoms Respiratory: Reports: no symptoms Gastrointestinal/Abdominal: Reports: no symptoms Genitourinary: Reports: no symptoms Neurologic/Psychiatric: Reports: no symptoms Subjective 68 YO F admitted with left flank pain. Now left ureteropelvic junction calculus. Cover for Int Alex-Dr Monterroso Objective Last Vital Signs Date Time Temp Pulse Resp B/P (MAP) Pulse Ox O2 Delivery O2 Flow Rate FiO2 11/16/18 16:00 98.0 61 18 117/49 (71) 95 11/16/18 08:00 Room Air Laboratory Tests Test 11/16/18 06:05 White Blood Count 6.6 K/UL (4.8-10.8) Red Blood Count 4.19 M/UL (4.20-5.40) L Hemoglobin 12.6 G/DL (12.0-16.0) Hematocrit 37.1 % (37.0-47.0) Mean Corpuscular Volume 88 FL (80-99) Mean Corpuscular Hemoglobin 30.2 PG (27.0-31.0) Mean Corpuscular Hemoglobin Concent 34.1 G/DL (32.0-36.0) Red Cell Distribution Width 11.2 % (11.6-14.8) L Platelet Count 325 K/UL (150-450) Mean Platelet Volume 5.8 FL (6.5-10.1) L Neutrophils (%) (Auto) 64.4 % (45.0-75.0) Lymphocytes (%) (Auto) 23.1 % (20.0-45.0) Monocytes (%) (Auto) 8.5 % (1.0-10.0) Eosinophils (%) (Auto) 3.2 % (0.0-3.0) H Basophils (%) (Auto) 0.8 % (0.0-2.0) Sodium Level 138 MMOL/L (136-145) Potassium Level 3.5 MMOL/L (3.5-5.1) Chloride Level 104 MMOL/L (98-107) Carbon Dioxide Level 28 MMOL/L (21-32) Anion Gap 6 mmol/L (5-15) Blood Urea Nitrogen 11 mg/dL (7-18) Creatinine 1.1 MG/DL (0.55-1.30) Estimat Glomerular Filtration Rate 49.7 mL/min (>60) Glucose Level 110 MG/DL (74-106) H Calcium Level 8.6 MG/DL (8.5-10.1) Total Bilirubin 0.4 MG/DL (0.2-1.0) Aspartate Amino Transf (AST/SGOT) 20 U/L (15-37) Alanine Aminotransferase (ALT/SGPT) 36 U/L (12-78) Alkaline Phosphatase 72 U/L (46-116) Total Protein 6.7 G/DL (6.4-8.2) Albumin 2.6 G/DL (3.4-5.0) L Globulin 4.1 g/dL Albumin/Globulin Ratio 0.6 (1.0-2.7) L Lipase 72 U/L (73-393) L Microbiology Date/Time Source Procedure Growth Status 11/14/18 19:50 Urine,Clean Catch Urine Culture - Preliminary NO GROWTH Resulted Intake and Output 11/15/18 11/16/18 19:00 07:00 Intake Total 1175 ml 830 ml Balance 1175 ml 830 ml Intake IV Total 675 ml 830 ml Other 500 ml # Voids 3 Objective PHYSICAL EXAMINATION: GENERAL: The patient is a well-developed, well-nourished, slightly obese, female, in no apparent distress. HEENT: Eyes, pupils are equal and responsive to light and accommodation. Extraocular movements are intact. NECK: Supple without lymphadenopathy. CHEST: Lungs are clear to auscultation bilaterally without wheezes or rales. CARDIOVASCULAR: Regular rate. S1 and S2 normal without murmurs, rubs, or gallops. ABDOMEN: Soft, tenderness to palpation on the left lower quadrant without rebound or guarding. No evidence of hepatosplenomegaly. EXTREMITIES: Negative for clubbing, cyanosis, or edema. RECTAL/GENITAL: Refused. NEUROLOGIC: Cranial nerves II through XII are grossly intact without focal deficits. Motor strength is 5/5 bilaterally. Deep tendon reflexes are 2+ plantar. Assessment/Plan Assessment/Plan ASSESSMENT: This is a 68-year-old female. 1. Left flank pain. 2. Left ureteropelvic junction calculus. 3. Nausea with vomiting. 4. Incidental finding of cholecystitis. TREATMENT: 1. Left flank pain/left ureteropelvic junction calculus. A Urology consultation has been obtained with Dr. Clark. The patient will not require cystoscopy at this time 2. Nausea with vomiting. The patient has been offered Zofran p.r.n. for nausea and vomiting. Nausea and vomiting may be secondary to acute cholecystitis versus left ureteropelvic junction calculus as above. 3. Cholecystitis. A General Surgery consultation has been obtained with Dr. Medellin. Monitor clinically per surgery 4. Discharge planning Carlo Crocker MD Nov 16, 2018 16:52
--- NOTE | 2018-11-16 19:28 | NUR ---
HAND-OFF: Report given to CLARISA Real.
[2018-11-16 20:14] VITALS: BP 124/73
--- NOTE | 2018-11-16 20:18 | NUR ---
NURSE NOTES: Received patient awake,alert,verbal,complained of left flank pain,subsequently given prn meds for pain. Visitors at bedside.
[2018-11-17] VITALS: BP 142/67
[2018-11-17 04:00] VITALS: BP 141/70
[2018-11-17] MEDS: D5 1/2NS 1,000 ML IV SCH ×2 (05:01→17:23)
[2018-11-17] MEDS: Heparin 5000 units/ml inj SUBQ SCH ×2 (05:02→14:00)
[2018-11-17] MEDS: HYDROcodone/Acetamin 5/325 tab ORAL PRN (05:16)
[2018-11-17 06:11] LABS: BASOPHILS % (AUTO) 0.8 % (0.0-2.0); EOSINOPHILS % (AUTO) 2.4 % (0.0-3.0); HEMATOCRIT 39.5 % (37.0-47.0); HEMOGLOBIN 13.2 G/DL (12.0-16.0); LYMPHOCYTES % (AUTO) 23.3 % (20.0-45.0); MEAN CORPUSCULAR VOLUME 88 FL (80-99); MONOCYTES % (AUTO) 7.3 % (1.0-10.0); NEUTROPHILS % (AUTO) 66.1 % (45.0-75.0); PLATELET COUNT 370 K/UL (150-450); RED CELL DISTRIBUTION WIDTH 11.1 % (11.6-14.8); WHITE BLOOD COUNT 8.1 K/UL (4.8-10.8)
[2018-11-17 06:55] LABS: ALANINE AMINOTRANSFERASE 31 U/L (12-78); ALBUMIN 2.6 G/DL (3.4-5.0); ALBUMIN/GLOBULIN RATIO 0.6 (1.0-2.7); ALKALINE PHOSPHATASE 83 U/L (46-116); ANION GAP 8 mmol/L (5-15); ASPARTATE AMINO TRANSFERASE 20 U/L (15-37); BILIRUBIN,TOTAL 0.5 MG/DL (0.2-1.0); BLOOD UREA NITROGEN 7 mg/dL (7-18); CALCIUM 8.7 MG/DL (8.5-10.1); CARBON DIOXIDE 26 MMOL/L (21-32); CHLORIDE 103 MMOL/L (98-107); CREATININE 0.9 MG/DL (0.55-1.30); PHOSPHORUS 3.4 MG/DL (2.5-4.9); POTASSIUM 3.2 MMOL/L (3.5-5.1); SODIUM 137 MMOL/L (136-145)
--- NOTE | 2018-11-17 07:18 | NUR ---
HAND-OFF: Report given to Inge Dixon RN.
[2018-11-17 08:00] VITALS: BP 130/64
--- NOTE | 2018-11-17 08:20 | NUR ---
NURSE NOTES: Patient is alert and oriented. Patient has no reports of pain. No reports of patient passing stone. Patient reports that she continues to strain urine. Call light is within reach. Will continue to monitor.
--- NOTE | 2018-11-17 08:33 | Urology Progress Note ---
Assessment/Plan Assessment/Plan: 1. Left-sided nephrolithiasis, resolved. 2. Hydronephrosis. 3. Renal colic secondary to above. 4. Urinary frequency. 5. Hematuria. 6. Rule out neurogenic bladder. 7. Nephrolithiasis. monitor clinically pt poss passed stone already? litho/stent ? case had been scheduled for tomorrow d/w Dr. Crocker pt feels better and may go home with outp f/u and imaging Subjective Allergies: Coded Allergies: No Known Allergies (Unverified , 11/14/18) Subjective all noted, feels fair, some vague discomfort last night, now feels better Objective Last 24 Hour Vital Signs Date Time Temp Pulse Resp B/P (MAP) Pulse Ox O2 Delivery O2 Flow Rate FiO2 11/17/18 08:00 98.0 59 18 130/64 (86) 95 11/17/18 05:46 98.7 11/17/18 04:00 98.7 69 16 141/70 (93) 96 11/17/18 00:00 98.1 58 16 142/67 (92) 96 11/16/18 21:05 Room Air 11/16/18 20:14 97.9 65 16 124/73 (90) 98 11/16/18 16:00 98.0 61 18 117/49 (71) 95 11/16/18 12:00 98.4 58 18 116/58 (77) 96 Intake and Output 11/16/18 11/17/18 19:00 07:00 Intake Total 75 ml 1350 ml Balance 75 ml 1350 ml Intake IV Total 75 ml 750 ml Other 600 ml # Voids 2 Microbiology Date/Time Source Procedure Growth Status 11/14/18 19:50 Urine,Clean Catch Urine Culture - Preliminary NO GROWTH Resulted Current Medications Medications (Trade) Dose Ordered Sig/Danielle Route PRN Reason Start Time Stop Time Status Last Admin Dose Admin Acetaminophen (Tylenol) 650 mg Q6H PRN ORAL Mild Pain/Temp > 100.5 11/14/18 09:00 12/14/18 08:59 Acetaminophen/ Hydrocodone Bitart ([place] 5/325) 1 tab Q6H PRN ORAL Moderate Pain (Pain Scale 4-6) 11/14/18 09:00 11/21/18 08:59 11/17/18 05:16 Dextrose/Sodium Chloride 1,000 ml @ 75 mls/hr [id number] IV 11/14/18 09:45 12/14/18 09:44 11/17/18 05:01 Heparin Sodium (Porcine) (Heparin 5000 units/ml) 5,000 units EVERY 8 HOURS SUBQ 11/14/18 14:00 12/14/18 13:59 11/17/18 05:02 Morphine Sulfate (Morphine Sulfate) 2 mg Q4H PRN IVP Severe Pain (Pain Scale 7-10) 11/14/18 09:00 11/21/18 08:59 Ondansetron HCl (Zofran) 4 mg Q4H PRN IVP Nausea & Vomiting 11/14/18 09:00 12/14/18 08:59 Laboratory Tests 11/17/18 05:06: White Blood Count 8.1, Red Blood Count 4.50, Hemoglobin 13.2, Hematocrit 39.5, Mean Corpuscular Volume 88, Mean Corpuscular Hemoglobin 29.5, Mean Corpuscular Hemoglobin Concent 33.5, Red Cell Distribution Width 11.1L, Platelet Count 370, Mean Platelet Volume 5.5L, Neutrophils (%) (Auto) 66.1, Lymphocytes (%) (Auto) 23.3, Monocytes (%) (Auto) 7.3, Eosinophils (%) (Auto) 2.4, Basophils (%) (Auto ) 0.8, Erythrocyte Sedimentation Rate 82H, Sodium Level 137, Potassium Level 3.2L, Chloride Level 103, Carbon Dioxide Level 26, Anion Gap 8, Blood Urea Nitrogen 7, Creatinine 0.9, Estimat Glomerular Filtration Rate > 60, Glucose Level 99, Calcium Level 8.7, Phosphorus Level 3.4, Magnesium Level 2.1, Total Bilirubin 0.5, Aspartate Amino Transf (AST/SGOT) 20, Alanine Aminotransferase ( ALT/SGPT) 31, Alkaline Phosphatase 83, C-Reactive Protein, Quantitative 13.3H, Total Protein 6.8, Albumin 2.6L, Globulin 4.2, Albumin/Globulin Ratio 0.6L Height (Feet): 5 Height (Inches): 1.00 Weight (Pounds): 158 Objective exam stable, no CVAT renal u/s noted, no hydro, poss small bladder calc KUB no obvious calc noted Marv Clark MD Nov 17, 2018 08:33
[2018-11-17 12:00] VITALS: BP 132/76
--- NOTE | 2018-11-17 12:38 | Internal Med Progress Note ---
Subjective Date of Service: Nov 17, 2018 Physician Name Carlo Crocker Attending Physician Dion Monterroso MD Current Medications Medications (Trade) Dose Ordered Sig/Danielle Route PRN Reason Start Time Stop Time Status Last Admin Dose Admin Acetaminophen (Tylenol) 650 mg Q6H PRN ORAL Mild Pain/Temp > 100.5 11/14/18 09:00 12/14/18 08:59 Acetaminophen/ Hydrocodone Bitart ([place] 5/325) 1 tab Q6H PRN ORAL Moderate Pain (Pain Scale 4-6) 11/14/18 09:00 11/21/18 08:59 11/17/18 05:16 Dextrose/Sodium Chloride 1,000 ml @ 75 mls/hr [id number] IV 11/14/18 09:45 12/14/18 09:44 11/17/18 05:01 Heparin Sodium (Porcine) (Heparin 5000 units/ml) 5,000 units EVERY 8 HOURS SUBQ 11/14/18 14:00 12/14/18 13:59 11/17/18 05:02 Morphine Sulfate (Morphine Sulfate) 2 mg Q4H PRN IVP Severe Pain (Pain Scale 7-10) 11/14/18 09:00 11/21/18 08:59 Ondansetron HCl (Zofran) 4 mg Q4H PRN IVP Nausea & Vomiting 11/14/18 09:00 12/14/18 08:59 Allergies: Coded Allergies: No Known Allergies (Unverified , 11/14/18) ROS Limited/Unobtainable: No Constitutional: Reports: no symptoms HEENT: Reports: no symptoms Cardiovascular: Reports: no symptoms Respiratory: Reports: no symptoms Gastrointestinal/Abdominal: Reports: no symptoms Genitourinary: Reports: no symptoms Neurologic/Psychiatric: Reports: no symptoms Subjective 68 YO F admitted with left flank pain. Now left ureteropelvic junction calculus. Cover for Int Alex-Dr Monterroso Objective Last Vital Signs Date Time Temp Pulse Resp B/P (MAP) Pulse Ox O2 Delivery O2 Flow Rate FiO2 11/17/18 12:00 98.2 63 18 132/76 (94) 97 11/17/18 08:00 Room Air Laboratory Tests Test 11/17/18 05:06 White Blood Count 8.1 K/UL (4.8-10.8) Red Blood Count 4.50 M/UL (4.20-5.40) Hemoglobin 13.2 G/DL (12.0-16.0) Hematocrit 39.5 % (37.0-47.0) Mean Corpuscular Volume 88 FL (80-99) Mean Corpuscular Hemoglobin 29.5 PG (27.0-31.0) Mean Corpuscular Hemoglobin Concent 33.5 G/DL (32.0-36.0) Red Cell Distribution Width 11.1 % (11.6-14.8) L Platelet Count 370 K/UL (150-450) Mean Platelet Volume 5.5 FL (6.5-10.1) L Neutrophils (%) (Auto) 66.1 % (45.0-75.0) Lymphocytes (%) (Auto) 23.3 % (20.0-45.0) Monocytes (%) (Auto) 7.3 % (1.0-10.0) Eosinophils (%) (Auto) 2.4 % (0.0-3.0) Basophils (%) (Auto) 0.8 % (0.0-2.0) Erythrocyte Sedimentation Rate 82 MM/HR (0-30) H Sodium Level 137 MMOL/L (136-145) Potassium Level 3.2 MMOL/L (3.5-5.1) L Chloride Level 103 MMOL/L (98-107) Carbon Dioxide Level 26 MMOL/L (21-32) Anion Gap 8 mmol/L (5-15) Blood Urea Nitrogen 7 mg/dL (7-18) Creatinine 0.9 MG/DL (0.55-1.30) Estimat Glomerular Filtration Rate > 60 mL/min (>60) Glucose Level 99 MG/DL (74-106) Calcium Level 8.7 MG/DL (8.5-10.1) Phosphorus Level 3.4 MG/DL (2.5-4.9) Magnesium Level 2.1 MG/DL (1.8-2.4) Total Bilirubin 0.5 MG/DL (0.2-1.0) Aspartate Amino Transf (AST/SGOT) 20 U/L (15-37) Alanine Aminotransferase (ALT/SGPT) 31 U/L (12-78) Alkaline Phosphatase 83 U/L (46-116) C-Reactive Protein, Quantitative 13.3 mg/dL (0.00-0.90) H Total Protein 6.8 G/DL (6.4-8.2) Albumin 2.6 G/DL (3.4-5.0) L Globulin 4.2 g/dL Albumin/Globulin Ratio 0.6 (1.0-2.7) L Microbiology Date/Time Source Procedure Growth Status 11/14/18 19:50 Urine,Clean Catch Urine Culture - Preliminary Gram Negative Bacillus 1 Resulted Intake and Output 11/16/18 11/17/18 19:00 07:00 Intake Total 75 ml 1350 ml Balance 75 ml 1350 ml Intake IV Total 75 ml 750 ml Other 600 ml # Voids 2 Objective PHYSICAL EXAMINATION: GENERAL: The patient is a well-developed, well-nourished, slightly obese, female, in no apparent distress. HEENT: Eyes, pupils are equal and responsive to light and accommodation. Extraocular movements are intact. NECK: Supple without lymphadenopathy. CHEST: Lungs are clear to auscultation bilaterally without wheezes or rales. CARDIOVASCULAR: Regular rate. S1 and S2 normal without murmurs, rubs, or gallops. ABDOMEN: Soft, tenderness to palpation on the left lower quadrant without rebound or guarding. No evidence of hepatosplenomegaly. EXTREMITIES: Negative for clubbing, cyanosis, or edema. RECTAL/GENITAL: Refused. NEUROLOGIC: Cranial nerves II through XII are grossly intact without focal deficits. Motor strength is 5/5 bilaterally. Deep tendon reflexes are 2+ plantar. Assessment/Plan Assessment/Plan ASSESSMENT: This is a 68-year-old female. 1. Left flank pain. 2. Left ureteropelvic junction calculus. 3. Nausea with vomiting. 4. Incidental finding of cholecystitis. TREATMENT: 1. Left flank pain/left ureteropelvic junction calculus. A Urology consultation has been obtained with Dr. Clark. The patient will not require cystoscopy at this time. U/S=no stone or hydronephrosis 2. Nausea with vomiting. The patient has been offered Zofran p.r.n. for nausea and vomiting. Nausea and vomiting may be secondary to acute cholecystitis versus left ureteropelvic junction calculus as above. 3. Cholecystitis. A General Surgery consultation has been obtained with Dr. Medellin. Monitor clinically per surgery 4. Discharge home today Carlo Crocker MD Nov 17, 2018 12:38
[2018-11-17] MEDS ORDERED: NORCO 5-325 TA1 EACH ORAL (13:38)
[2018-11-17 16:00] VITALS: BP 141/79
--- NOTE | 2018-11-17 17:47 | Surgery Progress Note ---
Surgery Progress Note Subjective Additional Comments Patient seen and examined at bedside. States that her pain is much improved. No nausea vomiting fever chills. Able to tolerate oral diet. States just mild flank on the left discomfort but no significant tenderness or pain. Objective Last 24 Hour Vital Signs Date Time Temp Pulse Resp B/P (MAP) Pulse Ox O2 Delivery O2 Flow Rate FiO2 11/17/18 16:00 98.0 63 18 141/79 (99) 95 11/17/18 12:00 98.2 63 18 132/76 (94) 97 11/17/18 08:00 Room Air 11/17/18 08:00 98.0 59 18 130/64 (86) 95 11/17/18 05:46 98.7 11/17/18 04:00 98.7 69 16 141/70 (93) 96 11/17/18 00:00 98.1 58 16 142/67 (92) 96 11/16/18 21:05 Room Air 11/16/18 20:14 97.9 65 16 124/73 (90) 98 I&O Intake and Output 11/16/18 11/17/18 19:00 07:00 Intake Total 75 ml 1350 ml Balance 75 ml 1350 ml Intake IV Total 75 ml 750 ml Other 600 ml # Voids 2 Cardiovascular: RSR Respiratory: clear Abdomen: soft, flat, non-tender, present bowel sounds Extremities: no edema, no tenderness, no cyanosis Laboratory Tests Test 11/17/18 05:06 White Blood Count 8.1 K/UL (4.8-10.8) Red Blood Count 4.50 M/UL (4.20-5.40) Hemoglobin 13.2 G/DL (12.0-16.0) Hematocrit 39.5 % (37.0-47.0) Mean Corpuscular Volume 88 FL (80-99) Mean Corpuscular Hemoglobin 29.5 PG (27.0-31.0) Mean Corpuscular Hemoglobin Concent 33.5 G/DL (32.0-36.0) Red Cell Distribution Width 11.1 % (11.6-14.8) L Platelet Count 370 K/UL (150-450) Mean Platelet Volume 5.5 FL (6.5-10.1) L Neutrophils (%) (Auto) 66.1 % (45.0-75.0) Lymphocytes (%) (Auto) 23.3 % (20.0-45.0) Monocytes (%) (Auto) 7.3 % (1.0-10.0) Eosinophils (%) (Auto) 2.4 % (0.0-3.0) Basophils (%) (Auto) 0.8 % (0.0-2.0) Erythrocyte Sedimentation Rate 82 MM/HR (0-30) H Sodium Level 137 MMOL/L (136-145) Potassium Level 3.2 MMOL/L (3.5-5.1) L Chloride Level 103 MMOL/L (98-107) Carbon Dioxide Level 26 MMOL/L (21-32) Anion Gap 8 mmol/L (5-15) Blood Urea Nitrogen 7 mg/dL (7-18) Creatinine 0.9 MG/DL (0.55-1.30) Estimat Glomerular Filtration Rate > 60 mL/min (>60) Glucose Level 99 MG/DL (74-106) Calcium Level 8.7 MG/DL (8.5-10.1) Phosphorus Level 3.4 MG/DL (2.5-4.9) Magnesium Level 2.1 MG/DL (1.8-2.4) Total Bilirubin 0.5 MG/DL (0.2-1.0) Aspartate Amino Transf (AST/SGOT) 20 U/L (15-37) Alanine Aminotransferase (ALT/SGPT) 31 U/L (12-78) Alkaline Phosphatase 83 U/L (46-116) C-Reactive Protein, Quantitative 13.3 mg/dL (0.00-0.90) H Total Protein 6.8 G/DL (6.4-8.2) Albumin 2.6 G/DL (3.4-5.0) L Globulin 4.2 g/dL Albumin/Globulin Ratio 0.6 (1.0-2.7) L Plan Problems: (1) Abdominal pain Assessment & Plan: 68-year-old female with abdominal pain, nausea, emesis, leukocytosis. Elevated ESR and CRP. On examination abdomen fairly benign but does have left flank tenderness. Nephrolithiasis as per urology. Appreciate urology input. No acute general surgery intervention recommended. Okay for diet from surgical standpoint urology states to monitor clinically trend labs start diet We will follow with serial abdominal examinations thank you for allowing me to participate in patient's care trend labs (2) Kidney stone Thomas Medellin Nov 17, 2018 17:47
[2018-11-17] MEDS ORDERED: D5 1/2NS 1000ml IV ONE (18:17)
--- NOTE | 2018-11-17 18:33 | NUR ---
NURSE NOTES: Patient discharged Home via private vehicle. Belongings reviewed and accounted for. IV removed. ID bracelet removed. Discharge instructions given to patient. Prescription filled at [facility] and medication given to patient. Patient accompanied by RN to lobby via wheelchair. Patient stable upon discharge.
--- NOTE | 2018-11-18 10:15 | Discharge Summary ---
Discharge Summary Discharge Summary _ DATE OF ADMISSION: 11/14/2018 DATE OF DISCHARGE: 11/17/2018 DISCHARGED BY: Dr. Monterroso REASON FOR ADMISSION: 68 years old female with no significant past medical history , presented with left flank pain for 4 days with radiation to periumbilical region. Patient initially [facility] to [facility] department. CT scan of the abdomen revealed 19 mm obstructing left ureteropelvic junction calculus. Also noted distended gallbladder with sludge. Patient subsequently was transferred to [facility] due to insurance purposes. CONSULTANTS: pulmonary/critical care Dr. Bhat surgery Dr. Medellin urology [facility] COURSE: Patient admitted to medical surgical floor. Patient started on IV fluids. Pain management was addressed. Abdominal ultrasound revealed question of a distal common bile stone and mild biliary ductal dilatation. Questionable small bladder stone. Trace ascites. Urologist followed. Per urologist , abdominal ultrasound revealed no hydronephrosis , possible small bladder calculus . KUB, done on the next day, revealed no obvious calculi. Patient possibly passed stone already. Surgeon followed. Abdominal exam was fairly benign. All images were personally reviewed by surgeon. Patient was clinically improving. LFT, bilirubin, lipase - all stable. No acute general surgery intervention was recommended. Patient was slowly started on diet . Patient was able to tolerate diet. Antiemetic were on board as needed. Initial leukocytosis resolved. CRP trended down from 40.9 to 13.3. Urine culture revealed gram-negative bacilli with colony count less than 10 K. DVT prophylaxis provided. Potassium was replaced. Magnesium remained stable. Patient was scheduled for lithotripsy and stent placement . However , patient felt better . Urologist cleared patient for discharge home with outpatient follow up. Patient clinically stabilized and was ready for discharged home. FINAL DIAGNOSES: Left ureteropelvic junction nephrolithiasis, resolved Hydronephrosis Renal colic , secondary to above- resolved Cholelithiasis Hematuria Possible neurogenic bladder DISCHARGE MEDICATIONS: See Medication Reconciliation list. DISCHARGE INSTRUCTIONS: Patient was discharged home. Follow up with primary care provider in one week. Follow up with urologist as outpatient. I have been assigned to dictate discharge summary for this account. I was not involved in the patient's management. Cyndie David NP Nov 18, 2018 10:15
== END 2018-11-17 18:18 | disposition home or self-care (01) | DRG 694 ==
LOC: 4E 03:20
DX: N13.2 Hydronephrosis with renal and ureteral calculous obstruction (principal); K81.9 Cholecystitis, unspecified; R31.9 Hematuria, unspecified; N31.9 Neuromuscular dysfunction of bladder, unspecified; R35.0 Frequency of micturition
CPT/HCPCS: 36415; 74018; 76700; 80053; 81003; 82150; 83690; 83735; 84100; 85025; 85610; 85651; 85730; 86140; 87086; J8499

== ENCOUNTER 2018-11-21 17:25 | Inpatient (IN) | payer MEDICARE, OTHER ==
[~2018-11-21] VITALS: Ht 154.9 cm; Wt 75.9 kg
[~2018-11-21 17:25] MED LIST: NORCO 5-325 TA1 EACH ORAL
[2018-11-21 17:30] VITALS: BP 149/72
--- NOTE | 2018-11-21 17:30 | NUR ---
ED Nurse Note: Patient walked in with daughter to ER due to hematuria, burning sensation, and pain 8/10 while urinating which started last night. She was hospitalized couple days ago due to kidney stones. VS are stable. Afebrile. Alert and oriente x4, breathing even and unlabored. Patient is Upper Sorbian speaking only. Daughter at bedside.
[2018-11-21] MEDS ORDERED: Ketorolac 30mg Inj IV ONE (18:15)
[2018-11-21 18:42] LABS: APPEARANCE,URINE SLIGHTLY CLOUDY; BASOPHILS % (AUTO) 1.6 % (0.0-2.0); BILIRUBIN, URINE NEGATIVE (NEGATIVE); COLOR,URINE RED; EOSINOPHILS % (AUTO) 1.5 % (0.0-3.0); GLUCOSE, URINE (UA) NEGATIVE (NEGATIVE); HEMATOCRIT 38.7 % (37.0-47.0); HEMOGLOBIN 13.7 G/DL (12.0-16.0); KETONES,URINE NEGATIVE (NEGATIVE); LEUKOCYTE ESTERASE ,URINE 2+ (NEGATIVE); LYMPHOCYTES % (AUTO) 21.2 % (20.0-45.0); MEAN CORPUSCULAR VOLUME 84 FL (80-99); MONOCYTES % (AUTO) 7.4 % (1.0-10.0); NEUTROPHILS % (AUTO) 68.3 % (45.0-75.0); NITRITE,URINE NEGATIVE (NEGATIVE); PH,URINE 6.5 (4.5-8.0); PLATELET COUNT 424 K/UL (150-450); PROTEIN,URINE 3+ (NEGATIVE); RED BLOOD COUNT 4.61 M/UL (4.20-5.40); RED CELL DISTRIBUTION WIDTH 10.4 % (11.6-14.8); UROBILINOGEN,URINE NORMAL MG/DL (0.0-1.0); WHITE BLOOD COUNT 9.1 K/UL (4.8-10.8)
[2018-11-21 18:47] LABS: INR 0.9 (0.9-1.1)
--- NOTE | 2018-11-21 18:47 | NUR ---
ED Nurse Note: Went down for CT.
[2018-11-21 18:52] LABS: ANION GAP 7 mmol/L (5-15); BLOOD UREA NITROGEN 15 mg/dL (7-18); CALCIUM 9.7 MG/DL (8.5-10.1); CARBON DIOXIDE 27 MMOL/L (21-32); CHLORIDE 101 MMOL/L (98-107); CREATININE 1.2 MG/DL (0.55-1.30); SODIUM 135 MMOL/L (136-145)
[2018-11-21 18:56] LABS: ALANINE AMINOTRANSFERASE 34 U/L (12-78); ALBUMIN 3.5 G/DL (3.4-5.0); ALBUMIN/GLOBULIN RATIO 0.7 (1.0-2.7); ALKALINE PHOSPHATASE 87 U/L (46-116); ASPARTATE AMINO TRANSFERASE 28 U/L (15-37); BILIRUBIN,TOTAL 0.4 MG/DL (0.2-1.0)
[2018-11-21] MEDS ORDERED: cefTRIAXone 1 GM in NS 55 ML IVPB ONE (19:00)
--- NOTE | 2018-11-21 19:08 | NUR ---
ED Nurse Note: received pt from monroe nolen. patient resting wth nad. ao4. vss. right ac iv infiltrated. established new iv. resumed iv fluids
--- NOTE | 2018-11-21 19:08 | NUR ---
HAND-OFF: Report given to Casi MCKENNA.
[2018-11-21 19:10] VITALS: BP 123/71
--- NOTE | 2018-11-21 19:12 | Diagnostic Imaging Report ---
Cysts Indication: Flank pain Technique: Spiral acquisitions obtained through the abdomen and pelvis. No oral or IV contrast utilized, per urinary stone protocol. Multiplanar reconstructions were generated. Total dose length product 842.56 mGycm. CTDIvol(s) 15.91 mGy. Dose reduction achieved using automated exposure control Comparison: none Findings: There is a 14 x 7 mm calculus in the proximal left ureter. This results in moderate left hydronephrosis and mild proximal hydroureter. A small amount of dense material is seen extending from the left ureteral orifice into the bladder lumen, could indicate a small amount of blood. No other ureteral calculi are demonstrated. No intrarenal calculi are demonstrated. No right renal or ureteral calculi are demonstrated. The bladder is unremarkable. Lack of IV contrast limits assessment of the renal parenchyma; no gross renal parenchymal mass or cyst demonstrated. Lack of IV contrast limits assessment of the other solid organs. The liver is mildly hypoattenuating, consistent with fatty change. The gallbladder is unremarkable. An unusual linear opacity is seen within the distal common bile duct. This measures approximately 3 cm in length. No biliary ductal dilatation is evident. The pancreas, spleen, right adrenal are unremarkable. The left adrenal demonstrates a 1 cm nodule. This demonstrates negative attenuation measurements consistent with a benign adenoma. No retroperitoneal or mesenteric mass or adenopathy. No pelvic mass or adenopathy. Atelectatic changes and groundglass opacities are seen at the lung bases. The heart is upper limits of normal in size. The appendix is normal. No evidence of diverticulosis or diverticulitis. No small bowel distention. No free or loculated intraperitoneal gas or fluid is evident. Impression: Positive for 14 x 7 mm proximal left ureteral calculus. Resultant moderate left hydronephrosis and mild proximal hydroureter Dense material extending from the left ureteral orifice into the bladder lumen could indicate a small amount of blood related to the above Fatty liver Basilar pulmonary parenchymal groundglass opacities and atelectatic changes. This is nonspecific. Above findings are in agreement with the static [facility] report Unusual linear density within the distal common bile duct. This could represent a broken off piece of a stent or perhaps a calcified cast of a prior stent. Correlate with any history of prior instrumentation. There is no associated biliary ductal dilatation 1 cm left adrenal adenoma These findings were not described on the [facility] preliminary report. Attending physician Dr. Monterroso notified at the time of interpretation, and [facility] was notified as well The CT scanner at [facility] is accredited by the [employer] and the scans are performed using protocols designed to limit radiation exposure to as low as reasonably achievable to attain images of sufficient resolution adequate for diagnostic evaluation.
[2018-11-21 20:00] VITALS: BP 137/62
--- NOTE | 2018-11-21 20:09 | NUR ---
ED Nurse Note: mrsa collected; sent down to lab. pt refused vre cre swab
--- NOTE | 2018-11-21 20:17 | NUR ---
ED Nurse Note: VRE CRE SWAB COLLECTED; SENT DOWN TO LAB.
--- NOTE | 2018-11-21 20:37 | NUR ---
TRANSFER TO FLOOR: Patient transferred to MED SURG 405-1 as ordered, per MD FRANCI. Report given to CLARISA SAPP. PATIENT IN STABLE CONDITION. BELONGINGS LIST COMPLETED WITH RECEIVING RN.
[2018-11-21 20:50] VITALS: BP 127/77
--- NOTE | 2018-11-21 20:51 | Emergency Room Report ---
History of Present Illness General Chief Complaint: Female Urogenital Problems Source: Patient, Family Member (Anna Riley) Present Illness HPI 68-year-old female accompanied by family complaining of blood in urine (with clots) and burning urination since last night. Also c/o persistent left sided abdominal pain x 1 week. States was recently discharged for left ureteral stone. Denies fever, vomiting, rash. (Anna Riley) Allergies: Coded Allergies: No Known Allergies (Unverified , 11/14/18) Patient History Past Medical History: other - kidney stone Past Surgical History: none Pertinent Family History: none Social History: Denies: smoking, alcohol use, drug use (Anna Riley) Nursing Documentation-PMH Hx Cardiac Problems: No - kidney stone Hx Cancer: No Hx Gastrointestinal Problems: Yes Hx Neurological Problems: No (Anna Riley) Review of Systems All Other Systems: negative except mentioned in HPI (Anna Riley) Physical Exam Vital Signs Date Time Temp Pulse Resp B/P (MAP) Pulse Ox O2 Delivery O2 Flow Rate FiO2 11/21/18 17:29 98.6 77 17 144/80 (101) 97 Room Air Sp02 EP Interpretation: reviewed Eyes: bilateral eye normal inspection, bilateral eye PERRL Respiratory: chest non-tender, lungs clear, normal breath sounds, speaking full sentences Cardiovascular #1: regular rate, rhythm, no edema Gastrointestinal: soft, no mass, no guarding, no rebound Genitourinary: CVA tenderness (L) - mild (Anna Riley) Medical Decision Making PA Attestation This patient was seen under the direct supervision of Dr. Kat, who directed all aspects of care and diagnostic interpretation. (Anna Riley) Diagnostic Impression: Primary Impression: Pyelonephritis Additional Impression: Kidney stone ER Course ED course HPI: 68-year-old female accompanied by family complaining of blood in urine (with clots) and burning urination since last night. Also c/o persistent left sided abdominal pain x 1 week. States was recently discharged from [facility] [place] for left ureteral stone. Denies fever, vomiting, rash. Ddx: Ureteral Stone versus UTI versus pyelonephritis HPI & PE consistent with: Acute pyelonephritis Left ureteral stone Orders/ Interventions: Labs and CT scan ordered. CBC normal. CMP shows GFR 45, creatinine 1.2. UA 3+ protein, 2+ leukocyte esterase, WBC 10-15. CT scan shows left-sided hydronephrosis and hydroureter, 7.2 mm x 13 mm stone in the UPJ. Patient medicated with Toradol 30 mg and Zofran 4 mg IV, given 1 L of fluids. Patient started on Rocephin 1 g for UTI. Case discussed with Dr. Kat, who agreed with ER course and disposition. Case discussed with Dr. Monterroso at 1999, who agreed for [facility] admission. Disposition: Admit to [facility] Laboratory Tests Test 11/21/18 18:25 White Blood Count 9.1 K/UL (4.8-10.8) Red Blood Count 4.61 M/UL (4.20-5.40) Hemoglobin 13.7 G/DL (12.0-16.0) Hematocrit 38.7 % (37.0-47.0) Mean Corpuscular Volume 84 FL (80-99) Mean Corpuscular Hemoglobin 29.7 PG (27.0-31.0) Mean Corpuscular Hemoglobin Concent 35.4 G/DL (32.0-36.0) Red Cell Distribution Width 10.4 % (11.6-14.8) L Platelet Count 424 K/UL (150-450) Mean Platelet Volume 5.1 FL (6.5-10.1) L Neutrophils (%) (Auto) 68.3 % (45.0-75.0) Lymphocytes (%) (Auto) 21.2 % (20.0-45.0) Monocytes (%) (Auto) 7.4 % (1.0-10.0) Eosinophils (%) (Auto) 1.5 % (0.0-3.0) Basophils (%) (Auto) 1.6 % (0.0-2.0) Prothrombin Time 10.0 SEC (9.30-11.50) Prothromb Time International Ratio 0.9 (0.9-1.1) Activated Partial Thromboplast Time 22 SEC (23-33) L Urine Color Red Urine Appearance Slightly cloudy Urine pH 6.5 (4.5-8.0) Urine Specific [place] 1.010 (1.005-1.035) Urine Protein 3+ (NEGATIVE) H Urine Glucose (UA) Negative (NEGATIVE) Urine Ketones Negative (NEGATIVE) Urine Blood 5+ (NEGATIVE) H Urine Nitrite Negative (NEGATIVE) Urine Bilirubin Negative (NEGATIVE) Urine Urobilinogen Normal MG/DL (0.0-1.0) Urine Leukocyte Esterase 2+ (NEGATIVE) H Urine RBC Tntc /HPF (0 - 2) H Urine WBC 10-15 /HPF (0 - 2) H Urine Squamous Epithelial Cells Moderate /LPF (NONE/OCC) H Urine Bacteria Moderate /HPF (NONE) H Sodium Level 135 MMOL/L (136-145) L Potassium Level 4.0 MMOL/L (3.5-5.1) Chloride Level 101 MMOL/L (98-107) Carbon Dioxide Level 27 MMOL/L (21-32) Anion Gap 7 mmol/L (5-15) Blood Urea Nitrogen 15 mg/dL (7-18) Creatinine 1.2 MG/DL (0.55-1.30) Estimat Glomerular Filtration Rate 45.0 mL/min (>60) Glucose Level 106 MG/DL (74-106) Calcium Level 9.7 MG/DL (8.5-10.1) Total Bilirubin 0.4 MG/DL (0.2-1.0) Aspartate Amino Transf (AST/SGOT) 28 U/L (15-37) Alanine Aminotransferase (ALT/SGPT) 34 U/L (12-78) Alkaline Phosphatase 87 U/L (46-116) Total Protein 8.7 G/DL (6.4-8.2) H Albumin 3.5 G/DL (3.4-5.0) Globulin 5.2 g/dL Albumin/Globulin Ratio 0.7 (1.0-2.7) L (Anna Riley) ER Course Osvaldo.Patient was seen and evaluated by NIVIA Riley. I reviewed findings with her. Based on labs and imaging studies patient requires admission for treatment of kidney stone with pyelonephritis and hydronephrosis. Case endorsed to Dr. Monterroso for inpatient management Labs Test 11/21/18 18:25 White Blood Count 9.1 K/UL (4.8-10.8) Red Blood Count 4.61 M/UL (4.20-5.40) Hemoglobin 13.7 G/DL (12.0-16.0) Hematocrit 38.7 % (37.0-47.0) Mean Corpuscular Volume 84 FL (80-99) Mean Corpuscular Hemoglobin 29.7 PG (27.0-31.0) Mean Corpuscular Hemoglobin Concent 35.4 G/DL (32.0-36.0) Red Cell Distribution Width 10.4 % (11.6-14.8) Platelet Count 424 K/UL (150-450) Mean Platelet Volume 5.1 FL (6.5-10.1) Neutrophils (%) (Auto) 68.3 % (45.0-75.0) Lymphocytes (%) (Auto) 21.2 % (20.0-45.0) Monocytes (%) (Auto) 7.4 % (1.0-10.0) Eosinophils (%) (Auto) 1.5 % (0.0-3.0) Basophils (%) (Auto) 1.6 % (0.0-2.0) Prothrombin Time 10.0 SEC (9.30-11.50) Prothromb Time International Ratio 0.9 (0.9-1.1) Activated Partial Thromboplast Time 22 SEC (23-33) Urine Color Red Urine Appearance Slightly cloudy Urine pH 6.5 (4.5-8.0) Urine Specific [place] 1.010 (1.005-1.035) Urine Protein 3+ (NEGATIVE) Urine Glucose (UA) Negative (NEGATIVE) Urine Ketones Negative (NEGATIVE) Urine Blood 5+ (NEGATIVE) Urine Nitrite Negative (NEGATIVE) Urine Bilirubin Negative (NEGATIVE) Urine Urobilinogen Normal MG/DL (0.0-1.0) Urine Leukocyte Esterase 2+ (NEGATIVE) Urine RBC Tntc /HPF (0 - 2) Urine WBC 10-15 /HPF (0 - 2) Urine Squamous Epithelial Cells Moderate /LPF (NONE/OCC) Urine Bacteria Moderate /HPF (NONE) Sodium Level 135 MMOL/L (136-145) Potassium Level 4.0 MMOL/L (3.5-5.1) Chloride Level 101 MMOL/L (98-107) Carbon Dioxide Level 27 MMOL/L (21-32) Anion Gap 7 mmol/L (5-15) Blood Urea Nitrogen 15 mg/dL (7-18) Creatinine 1.2 MG/DL (0.55-1.30) Estimat Glomerular Filtration Rate 45.0 mL/min (>60) Glucose Level 106 MG/DL (74-106) Calcium Level 9.7 MG/DL (8.5-10.1) Total Bilirubin 0.4 MG/DL (0.2-1.0) Aspartate Amino Transf (AST/SGOT) 28 U/L (15-37) Alanine Aminotransferase (ALT/SGPT) 34 U/L (12-78) Alkaline Phosphatase 87 U/L (46-116) Total Protein 8.7 G/DL (6.4-8.2) Albumin 3.5 G/DL (3.4-5.0) Globulin 5.2 g/dL Albumin/Globulin Ratio 0.7 (1.0-2.7) (Sachin Kat MD) CT/MRI/US Diagnostic Results CT/MRI/US Diagnostic Results : Imaging Test Ordered: Abdomen and pelvis without contrast Impression Left-sided hydronephrosis and hydroureter with a 7.2 mm x 13 mm UPJ stone. . No evidence for nephrolithiasis. Gallbladder is prominent no evidence for gallstones. Fatty infiltration of liver suspected Spleen is unremarkable. Marked appearance the appendix and the GI tract. No free air no free fluid. Impression: left hydronephrosis and hydroureter with a 7.2 mm x 13 mm UPJ stone Interpreted by radiology (Anna Riley) CT/MRI/US Diagnostic Results : Imaging Test Ordered: CT A/P Impression CT ABDOMEN + PELVIS Without Contrast: Left-sided hydronephrosis and hydroureter with a 7.2 mm x 13 mm UPJ stone. . No evidence for nephrolithiasis. Gallbladder is prominent no evidence for gallstones. Fatty infiltration of liver suspected Spleen is unremarkable. Marked appearance the appendix and the GI tract. No free air no free fluid. Impression: left hydronephrosis and hydroureter with a 7.2 mm x 13 mm UPJ stone (Sachin Kat MD) Last Vital Signs Date Time Temp Pulse Resp B/P (MAP) Pulse Ox O2 Delivery O2 Flow Rate FiO2 11/21/18 19:08 98.4 11/21/18 17:30 84 14 149/72 98 Room Air (Anna Riley) Status: improved (Sachin Kat MD) Disposition: ADMITTED INPATIENT Condition: Serious Referrals: Dion Monterroso MD (PCP) Anna Riley Nov 21, 2018 20:51 Sachin Kat MD Nov 21, 2018 21:54
[2018-11-21] MEDS: D5 1/2NS 1,000 ML IV SCH (23:00)
[2018-11-21] MEDS: HYDROcodone/Acetamin 5/325 tab ORAL PRN (23:02)
[2018-11-22] VITALS: BP 132/77
[2018-11-22 04:00] VITALS: BP 127/75
[2018-11-22 06:45] LABS: BASOPHILS % (AUTO) 1.1 % (0.0-2.0); EOSINOPHILS % (AUTO) 3.2 % (0.0-3.0); HEMATOCRIT 37.3 % (37.0-47.0); HEMOGLOBIN 12.6 G/DL (12.0-16.0); LYMPHOCYTES % (AUTO) 29.7 % (20.0-45.0); MEAN CORPUSCULAR VOLUME 89 FL (80-99); MONOCYTES % (AUTO) 9.9 % (1.0-10.0); NEUTROPHILS % (AUTO) 56.1 % (45.0-75.0); PLATELET COUNT 419 K/UL (150-450); RED CELL DISTRIBUTION WIDTH 11.4 % (11.6-14.8); WHITE BLOOD COUNT 6.6 K/UL (4.8-10.8)
[2018-11-22 07:00] LABS: ALANINE AMINOTRANSFERASE 30 U/L (12-78); ALBUMIN 2.8 G/DL (3.4-5.0); ALBUMIN/GLOBULIN RATIO 0.6 (1.0-2.7); ALKALINE PHOSPHATASE 75 U/L (46-116); ANION GAP 7 mmol/L (5-15); ASPARTATE AMINO TRANSFERASE 22 U/L (15-37); BILIRUBIN,TOTAL 0.3 MG/DL (0.2-1.0); BLOOD UREA NITROGEN 12 mg/dL (7-18); CALCIUM 8.9 MG/DL (8.5-10.1); CARBON DIOXIDE 27 MMOL/L (21-32); CHLORIDE 102 MMOL/L (98-107); CREATININE 1.1 MG/DL (0.55-1.30); PHOSPHORUS 4.2 MG/DL (2.5-4.9); POTASSIUM 3.9 MMOL/L (3.5-5.1); SODIUM 136 MMOL/L (136-145)
--- NOTE | 2018-11-22 07:28 | NUR ---
HAND-OFF: Report given to CLARISA Alcazar. Patient in stable condition.
[2018-11-22 08:00] VITALS: BP 129/69
--- NOTE | 2018-11-22 08:08 | NUR ---
NURSE NOTES: Patient is alert and oriented. Patient sitting at side of bed eating breakfast. Side rails upx2, bed is locked, and in lowest position. No reports of pain at the moment. Will continue to monitor.
[2018-11-22] MEDS: cefTRIAXone 1 GM in D5W 55 ML IVPB SCH (09:12)
--- NOTE | 2018-11-22 09:26 | NUR ---
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
[2018-11-22 12:00] VITALS: BP 155/77
--- NOTE | 2018-11-22 12:07 | Consultation ---
History of Present Illness General Chief Complaint: Female Urogenital Problems Reason for Consultation: inpatient management Present Illness HPI 68-year-old female with [place] [facility] [place], was accompanied by family to ER with CC of blood in urine (with clots) and burning urination for one day. Also c/o persistent left sided abdominal pain x [address] of abdomen showed left urethral stone. she was started on IV abx and analgesics and admitted for further management. Allergies: Coded Allergies: No Known Allergies (Unverified , 11/14/18) Medication History Scheduled PRN Hydrocodone Bit/Acetaminophen 5-325* (Stedman 5-325*), 1 TAB ORAL Q4H PRN for For Pain, (Reported) Patient History Healthcare decision maker Resuscitation status Full Code Advanced Directive on File Past Medical/Surgical History Past Medical/Surgical History: (1) Kidney stone Review of Systems Gastrointestinal: Reports: abdominal pain All Other Systems: negative except mentioned in HPI Physical Exam General Appearance: WD/WN, no apparent distress Lines, tubes and drains: peripheral HEENT: normocephalic, atraumatic Neck: non-tender, normal alignment Respiratory/Chest: chest wall non-tender, lungs clear Breasts: no masses Cardiovascular/Chest: normal peripheral pulses, normal rate Abdomen: normal bowel sounds, non tender Genitourinary/Rectal: normal genital exam Extremities: normal range of motion Skin Exam: normal pigmentation 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 Last 24 Hour Vital Signs Date Time Temp Pulse Resp B/P (MAP) Pulse Ox O2 Delivery O2 Flow Rate FiO2 11/22/18 08:30 Room Air 11/22/18 08:00 99.1 74 18 129/69 (89) 96 11/22/18 04:00 99.0 62 17 127/75 (92) 97 11/22/18 01:37 Room Air 11/22/18 00:00 99.3 65 18 132/77 (95) 97 11/21/18 23:32 98.4 11/21/18 20:50 99.0 69 19 127/77 (94) 96 11/21/18 20:40 98.4 84 14 137/62 98 Room Air 11/21/18 20:00 98.4 84 14 137/62 98 Room Air 11/21/18 19:10 98.4 88 14 123/71 98 Room Air 11/21/18 19:08 98.4 11/21/18 17:30 98.4 84 14 149/72 98 Room Air 11/21/18 17:29 98.6 77 17 144/80 (101) 97 Room Air Intake and Output 11/21/18 11/22/18 19:00 07:00 Intake Total 600 ml Balance 600 ml Intake Oral 300 ml IV Total 300 ml # Voids 4 Laboratory Tests Test 11/21/18 18:25 11/22/18 05:45 White Blood Count 9.1 K/UL (4.8-10.8) 6.6 K/UL (4.8-10.8) Red Blood Count 4.61 M/UL (4.20-5.40) 4.20 M/UL (4.20-5.40) Hemoglobin 13.7 G/DL (12.0-16.0) 12.6 G/DL (12.0-16.0) Hematocrit 38.7 % (37.0-47.0) 37.3 % (37.0-47.0) Mean Corpuscular Volume 84 FL (80-99) 89 FL (80-99) Mean Corpuscular Hemoglobin 29.7 PG (27.0-31.0) 29.9 PG (27.0-31.0) Mean Corpuscular Hemoglobin Concent 35.4 G/DL (32.0-36.0) 33.7 G/DL (32.0-36.0) Red Cell Distribution Width 10.4 % (11.6-14.8) L 11.4 % (11.6-14.8) L Platelet Count 424 K/UL (150-450) 419 K/UL (150-450) Mean Platelet Volume 5.1 FL (6.5-10.1) L 5.1 FL (6.5-10.1) L Neutrophils (%) (Auto) 68.3 % (45.0-75.0) 56.1 % (45.0-75.0) Lymphocytes (%) (Auto) 21.2 % (20.0-45.0) 29.7 % (20.0-45.0) Monocytes (%) (Auto) 7.4 % (1.0-10.0) 9.9 % (1.0-10.0) Eosinophils (%) (Auto) 1.5 % (0.0-3.0) 3.2 % (0.0-3.0) H Basophils (%) (Auto) 1.6 % (0.0-2.0) 1.1 % (0.0-2.0) Prothrombin Time 10.0 SEC (9.30-11.50) Prothromb Time International Ratio 0.9 (0.9-1.1) Activated Partial Thromboplast Time 22 SEC (23-33) L Urine Color Red Urine Appearance Slightly cloudy Urine pH 6.5 (4.5-8.0) Urine Specific [place] 1.010 (1.005-1.035) Urine Protein 3+ (NEGATIVE) H Urine Glucose (UA) Negative (NEGATIVE) Urine Ketones Negative (NEGATIVE) Urine Blood 5+ (NEGATIVE) H Urine Nitrite Negative (NEGATIVE) Urine Bilirubin Negative (NEGATIVE) Urine Urobilinogen Normal MG/DL (0.0-1.0) Urine Leukocyte Esterase 2+ (NEGATIVE) H Urine RBC Tntc /HPF (0 - 2) H Urine WBC 10-15 /HPF (0 - 2) H Urine Squamous Epithelial Cells Moderate /LPF (NONE/OCC) H Urine Bacteria Moderate /HPF (NONE) H Sodium Level 135 MMOL/L (136-145) L 136 MMOL/L (136-145) Potassium Level 4.0 MMOL/L (3.5-5.1) 3.9 MMOL/L (3.5-5.1) Chloride Level 101 MMOL/L (98-107) 102 MMOL/L (98-107) Carbon Dioxide Level 27 MMOL/L (21-32) 27 MMOL/L (21-32) Anion Gap 7 mmol/L (5-15) 7 mmol/L (5-15) Blood Urea Nitrogen 15 mg/dL (7-18) 12 mg/dL (7-18) Creatinine 1.2 MG/DL (0.55-1.30) 1.1 MG/DL (0.55-1.30) Estimat Glomerular Filtration Rate 45.0 mL/min (>60) 49.7 mL/min (>60) Glucose Level 106 MG/DL (74-106) 94 MG/DL (74-106) Calcium Level 9.7 MG/DL (8.5-10.1) 8.9 MG/DL (8.5-10.1) Total Bilirubin 0.4 MG/DL (0.2-1.0) 0.3 MG/DL (0.2-1.0) Aspartate Amino Transf (AST/SGOT) 28 U/L (15-37) 22 U/L (15-37) Alanine Aminotransferase (ALT/SGPT) 34 U/L (12-78) 30 U/L (12-78) Alkaline Phosphatase 87 U/L (46-116) 75 U/L (46-116) Total Protein 8.7 G/DL (6.4-8.2) H 7.6 G/DL (6.4-8.2) Albumin 3.5 G/DL (3.4-5.0) 2.8 G/DL (3.4-5.0) L Globulin 5.2 g/dL 4.8 g/dL Albumin/Globulin Ratio 0.7 (1.0-2.7) L 0.6 (1.0-2.7) L Phosphorus Level 4.2 MG/DL (2.5-4.9) Magnesium Level 2.1 MG/DL (1.8-2.4) Microbiology Date/Time Source Procedure Growth Status 11/21/18 18:25 Urine,Clean Catch Urine Culture - Preliminary Resulted 11/21/18 20:20 Rectum Received Height (Feet): 5 Height (Inches): 1.00 Weight (Pounds): 145 Medications Current Medications Medications (Trade) Dose Ordered Sig/Danielle Route PRN Reason Start Time Stop Time Status Last Admin Dose Admin Acetaminophen (Tylenol) 650 mg Q4H PRN ORAL Mild Pain/Temp > 100.5 11/21/18 22:30 12/21/18 22:29 Acetaminophen/ Hydrocodone Bitart (Stedman 5/325) 1 tab Q6H PRN ORAL Severe Pain (Pain Scale 7-10) 11/21/18 22:30 11/28/18 22:29 11/21/18 23:02 Ceftriaxone Sodium 1 gm/ Dextrose 55 ml @ 110 mls/hr Q24H IVPB 11/22/18 09:00 11/29/18 08:59 11/22/18 09:12 Dextrose/Sodium Chloride 1,000 ml @ 75 mls/hr [id number] IV 11/21/18 23:00 12/21/18 22:59 11/21/18 23:00 Ondansetron HCl (Zofran) 4 mg Q4H PRN IVP Nausea & Vomiting 11/21/18 22:30 12/21/18 22:29 Assessment/Plan Problem List: (1) Hematuria, gross ICD Codes: R31.0 - Gross hematuria SNOMED: 927068458 (2) Renal colic ICD Codes: N23 - Unspecified renal colic SNOMED: 7355826 Assessment/Plan: NPO IV fluids check h/h analgesics prbc prn dvt prophylaxis symptomatic treatment Kala Bhat MD Nov 22, 2018 12:07
[2018-11-22] MEDS: D5 1/2NS 1,000 ML IV SCH (12:32)
--- NOTE | 2018-11-22 14:15 | NUR ---
CHARGE NURSE NOTE: Spoke with that patient needs a urology consult. asked to remind to see the patient. was called and informed. He will see patient soon.
[2018-11-22 16:00] VITALS: BP 138/71
[2018-11-22] MEDS: HYDROcodone/Acetamin 5/325 tab ORAL PRN (16:12)
--- NOTE | 2018-11-22 19:30 | NUR ---
NURSE NOTES:Patient seen by Marv Palma Robert today . No new orders given at this time .
--- NOTE | 2018-11-22 19:30 | NUR ---
NURSE NOTES:Patient received A/A/OX4 . Patient denies any pain at this time . no s/s of distress noted . g#20 With D5 1/2 NS at 75 cc/ hr infusing well . safety / fall precaautions . call light within reach . bed in low position . will continue to monitor.. . LH
--- NOTE | 2018-11-22 19:30 | NUR ---
HAND-OFF: Report given to ARIN Ferris.
--- NOTE | 2018-11-22 19:32 | History & Physical ---
History and Physical History & Physicial Dictated for Int Med-Dr Monterroso no. [id number]. Carlo Crocker MD Nov 22, 2018 19:32
[2018-11-22 20:00] VITALS: BP 138/72
--- NOTE | 2018-11-22 22:30 | Consultation ---
DATE OF CONSULTATION: 11/22/2018 CONSULTING PHYSICIAN: Marv Clark M.D. REFERRING PHYSICIAN: Dion Monterroso M.D. REASON FOR CONSULTATION: For evaluation of hematuria and nephrolithiasis. HISTORY OF PRESENT ILLNESS: This is a 68-year-old female who is well known to me from recent evaluation. The patient has a history of left proximal ureteral calculus with renal colic. She was admitted to the hospital last week and was evaluated after she was transferred to [facility] from the [facility]. The patient had left-sided pain secondary to stone, which eventually subsided. I had actually scheduled her for procedure due to lithotripsy, however, the patient's pain had resolved and she declined having any procedure and was discharged home. She was actually supposed to follow up with me as an outpatient, but came to the emergency room last night because of dysuria and hematuria and some flank pain, and a CT showed that the stone was persisted. It should be noted that a followup imaging last week in the hospital including KUB and renal ultrasound did not show any hydronephrosis. A followup Urology evaluation is requested. PAST MEDICAL HISTORY: Significant for above. PAST SURGICAL HISTORY: Unknown. MEDICATIONS: Current medication list was reviewed. The patient is currently on Rocephin and essentially pain medications. ALLERGIES: No known drug allergies. SOCIAL HISTORY: The patient is a nonsmoker. FAMILY HISTORY: Noncontributory. REVIEW OF SYSTEMS: As above. PHYSICAL EXAMINATION: GENERAL: Elderly female. VITAL SIGNS: Temperature is 99, blood pressure is 138/71, pulse is 67, and respirations are 18. ABDOMEN: Some mild left-sided CVA tenderness has been reported. LABORATORY DATA: White count of 6.6, hemoglobin 12.6, and platelets of 419,000. BUN is 12 and creatinine 1.1. Potassium 3.9. PT is 10.0. INR 0.9. UA shows 3+ protein, too numerous to count rbc's, 10 to 15 wbc's, and positive bacteria. Urine culture is pending. DIAGNOSTIC IMAGING STUDIES: The patient had a CT scan of the abdomen and pelvis, this was done last night. There was mention of a 14 mm stone of the proximal left ureter with moderate left hydronephrosis. There was also mention of a 1 cm left adrenal adenoma. Again, the patient had an abdominal ultrasound last week, which did not show any hydronephrosis. She also had a KUB last week, which was essentially negative. IMPRESSION: 1. Left-sided renal colic. 2. Nephrolithiasis. 3. Hydronephrosis. 4. Hematuria. 5. Pyuria and possible UTI. 6. Proteinuria. 7. History of mild lower urinary tract symptoms. 8. Adrenal adenoma. PLAN AND DISCUSSION: The patient is to be treated with antibiotics as ordered. We will follow up with the results of the urine culture and adjust accordingly. Her pain will be managed and most likely she has to be scheduled for stent placement and possible lithotripsy. Any other further recommendations will be forthcoming. Thank you for this consultation. Marv Clark M.D. DR: SERA JOB#: [id number] CC:
[2018-11-23] VITALS: BP 126/77
[2018-11-23] MEDS: D5 1/2NS 1,000 ML IV SCH ×2 (01:49→15:16)
[2018-11-23] MEDS: HYDROcodone/Acetamin 5/325 tab ORAL PRN ×2 (02:48→15:18)
--- NOTE | 2018-11-23 03:15 | History and Physical Report ---
DATE OF ADMISSION: 11/21/2018 CHIEF COMPLAINT: The patient is a 68-year-old female, who presents with a chief complaint of blood in the urine. HISTORY OF PRESENT ILLNESS: The patient was admitted to [facility] from November 14, 2018 to November 17, 2018. The patient was admitted with a left ureteral pelvic junction calculus. The patient did not undergo cystoscopy or ureteroscopy during that admission. A subsequent abdominal ultrasound failed to demonstrate presence of stone. The patient presented to [facility] emergency room complaining 1-day history of blood in the urine. The patient presented to [facility] emergency room. The patient was admitted for hematuria to rule out acute renal calculus. REVIEW OF SYSTEMS: CONSTITUTIONAL: The patient denies weight loss or weight gain. The patient denies fevers or chills. HEENT: The patient denies ear or throat pain. The patient denies headache. CARDIOVASCULAR: The patient denies palpitations or chest pain. CHEST: The patient denies wheeze or shortness of breath. ABDOMINAL: The patient denies nausea, vomiting, diarrhea, or constipation. GENITOURINARY: The patient complains of hematuria as above. The patient denies dysuria. NEUROMUSCULAR: The patient denies seizures or generalized weakness. PAST MEDICAL HISTORY: Significant for left ureteropelvic junction calculus as above. PAST SURGICAL HISTORY: Significant for bilateral ovarian cyst removal. CURRENT MEDICATIONS: Tobias 5/325 mg one tablet p.o. q.6 h. p.r.n. ALLERGIES: No known drug allergies. SOCIAL HISTORY: The patient is . The patient denies tobacco use having quit many years previously. The patient denies alcohol use. PHYSICAL EXAMINATION: VITAL SIGNS: Temperature 98.4, respirations 14, pulse 80, and blood pressure 120/71. GENERAL: The patient is a well-developed and well-nourished female, in no apparent distress. HEENT: Eyes, pupils are equal and responsive to light and accommodation. Extraocular movements are intact. NECK: Supple without lymphadenopathy. CHEST: Lungs are clear to auscultation bilaterally without wheezes or rales. CARDIOVASCULAR: Regular rhythm and rate. S1 and S2 are normal without murmurs, rubs, or gallops. ABDOMEN: Soft, nontender, and nondistended. Positive bowel sounds. No evidence of hepatosplenomegaly. Currently, no rebound or guarding noted. EXTREMITIES: Negative for clubbing, cyanosis, or edema. RECTAL/GENITAL: Not performed. NEUROLOGIC: Cranial nerves II through XII are grossly intact without focal deficits. Motor strength is 5/5 bilaterally. Deep tendon reflexes are 2+ plantar. DIAGNOSTIC DATA: A CT scan of the abdomen revealed a 14 x 7 mm proximal left ureteral calculus with left hydronephrosis in the proximal hydroureter. LABORATORY STUDIES: WBC 9.1, hemoglobin 13.7, hematocrit 38.7, and platelets 424,000. Sodium 135, potassium 4.0, chloride 101, CO2 27, BUN 15, creatinine 1.2, and glucose 106. Urinalysis showed 3+ protein, 5+ blood, rbc's too numerous to count, and 2+ leukocyte esterase with 10 to 15 wbc's per high-powered field. A urine culture is pending. ASSESSMENT: This is a 68-year-old female. 1. Hematuria. 2. Left ureteral calculus. 3. Hydronephrosis of the left . 4. Hematuria. TREATMENT: Hematuria/left ureteral calculus/left hydronephrosis. A Urology consultation has been obtained with Dr. Marv Clark. The patient may require stent placement and ureteroscopy during this hospitalization. We will follow recommendations of Urology. The patient has been started empirically on intravenous ceftriaxone. Urine culture is pending. Carlo Crocker M.D. DR: ASHTYN JOB#: [id number] CC:
[2018-11-23 04:00] VITALS: BP 128/76
--- NOTE | 2018-11-23 07:10 | NUR ---
HAND-OFF: Report given to Inge Humphries
[2018-11-23 07:24] LABS: BASOPHILS % (AUTO) 0.8 % (0.0-2.0); EOSINOPHILS % (AUTO) 3.8 % (0.0-3.0); HEMATOCRIT 37.2 % (37.0-47.0); HEMOGLOBIN 12.4 G/DL (12.0-16.0); LYMPHOCYTES % (AUTO) 25.8 % (20.0-45.0); MEAN CORPUSCULAR VOLUME 88 FL (80-99); MONOCYTES % (AUTO) 7.2 % (1.0-10.0); NEUTROPHILS % (AUTO) 62.4 % (45.0-75.0); PLATELET COUNT 401 K/UL (150-450); RED BLOOD COUNT 4.21 M/UL (4.20-5.40); RED CELL DISTRIBUTION WIDTH 11.2 % (11.6-14.8)
[2018-11-23 07:29] LABS: ANION GAP 9 mmol/L (5-15); BLOOD UREA NITROGEN 13 mg/dL (7-18); CALCIUM 9.2 MG/DL (8.5-10.1); CARBON DIOXIDE 25 MMOL/L (21-32); CHLORIDE 102 MMOL/L (98-107); CREATININE 1.2 MG/DL (0.55-1.30); POTASSIUM 3.9 MMOL/L (3.5-5.1); SODIUM 136 MMOL/L (136-145)
--- NOTE | 2018-11-23 07:47 | Urology Progress Note ---
Assessment/Plan Assessment/Plan: 1. Left-sided renal colic. 2. Nephrolithiasis. 3. Hydronephrosis. 4. Hematuria. 5. Pyuria and possible UTI. 6. Proteinuria. 7. History of mild lower urinary tract symptoms. 8. Adrenal adenoma. monitor clinically check KUB will likely need litho/stent, poss this week abx as ordered f/u on urine cx will d/w pt's family Subjective Allergies: Coded Allergies: No Known Allergies (Unverified , 11/14/18) Subjective feels fair Objective Last 24 Hour Vital Signs Date Time Temp Pulse Resp B/P (MAP) Pulse Ox O2 Delivery O2 Flow Rate FiO2 11/23/18 04:00 98.3 69 18 128/76 (93) 98 11/23/18 00:00 98.0 70 18 126/77 (93) 98 11/22/18 20:47 Room Air 11/22/18 20:00 98.3 69 18 138/72 (94) 98 69 11/22/18 16:00 99.0 67 18 138/71 (93) 94 11/22/18 12:00 99.0 71 18 155/77 (103) 95 11/22/18 08:30 Room Air 11/22/18 08:00 99.1 74 18 129/69 (89) 96 Intake and Output 11/22/18 11/23/18 19:00 07:00 Intake Total 925 ml 1205 ml Balance 925 ml 1205 ml Intake Oral 850 ml 680 ml IV Total 75 ml 525 ml # Voids 4 3 Microbiology Date/Time Source Procedure Growth Status 11/21/18 18:25 Urine,Clean Catch Urine Culture - Preliminary Resulted 11/21/18 20:20 Rectum Received Current Medications Medications (Trade) Dose Ordered Sig/Danielle Route PRN Reason Start Time Stop Time Status Last Admin Dose Admin Acetaminophen (Tylenol) 650 mg Q4H PRN ORAL Mild Pain/Temp > 100.5 11/21/18 22:30 12/21/18 22:29 Acetaminophen/ Hydrocodone Bitart ([place] 5/325) 1 tab Q6H PRN ORAL Severe Pain (Pain Scale 7-10) 11/21/18 22:30 11/28/18 22:29 11/23/18 02:48 Ceftriaxone Sodium 1 gm/ Dextrose 55 ml @ 110 mls/hr Q24H IVPB 11/22/18 09:00 11/29/18 08:59 11/22/18 09:12 Dextrose/Sodium Chloride 1,000 ml @ 75 mls/hr [id number] IV 11/21/18 23:00 12/21/18 22:59 11/23/18 01:49 Ondansetron HCl (Zofran) 4 mg Q4H PRN IVP Nausea & Vomiting 11/21/18 22:30 12/21/18 22:29 Laboratory Tests 11/23/18 05:16: White Blood Count 8.0, Red Blood Count 4.21, Hemoglobin 12.4, Hematocrit 37.2, Mean Corpuscular Volume 88, Mean Corpuscular Hemoglobin 29.5, Mean Corpuscular Hemoglobin Concent 33.5, Red Cell Distribution Width 11.2L, Platelet Count 401, Mean Platelet Volume 5.2L, Neutrophils (%) (Auto) 62.4, Lymphocytes (%) (Auto) 25.8, Monocytes (%) (Auto) 7.2, Eosinophils (%) (Auto) 3.8H, Basophils (%) (Auto ) 0.8, Sodium Level 136, Potassium Level 3.9, Chloride Level 102, Carbon Dioxide Level 25, Anion Gap 9, Blood Urea Nitrogen 13, Creatinine 1.2, Estimat Glomerular Filtration Rate 45.0, Glucose Level 109H, Calcium Level 9.2 Height (Feet): 5 Height (Inches): 1.00 Weight (Pounds): 145 Objective exam stable Marv Clark MD Nov 23, 2018 07:47
[2018-11-23 08:00] VITALS: BP 143/71
--- NOTE | 2018-11-23 08:03 | NUR ---
NURSE NOTES: Patient is alert and oriented. Patient is sitting up eating breakfast. No reports of discomfort at the moment. IV is intact. IVF is infusing. Will continue to monitor.
[2018-11-23] MEDS: cefTRIAXone 1 GM in D5W 55 ML IVPB SCH (09:09)
[2018-11-23 12:00] VITALS: BP 145/77
--- NOTE | 2018-11-23 12:21 | NUR ---
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 98.5 HR 74 RR 20 B/P 143/71 RA SAT 94% RCW 11.2 MPV 5.2 EOS% 3.8 GLUCOSE 109 IS: ROCEPHIN IVPB D5 NS IV MEDSURG STATUS DCP: PT IS FROM HOME
--- NOTE | 2018-11-23 12:49 | Pulmonology Progress Note ---
Assessment/Plan Problems: (1) Hematuria, gross (2) Renal colic Assessment/Plan improving check h/h prbc prn analgesics Subjective ROS Limited/Unobtainable: No Constitutional: Reports: no symptoms HEENT: Repors: no symptoms Respiratory: Reports: no symptoms Allergies: Coded Allergies: No Known Allergies (Unverified , 11/14/18) Objective Last 24 Hour Vital Signs Date Time Temp Pulse Resp B/P (MAP) Pulse Ox O2 Delivery O2 Flow Rate FiO2 11/23/18 08:30 Room Air 11/23/18 08:00 98.5 74 20 143/71 (95) 94 11/23/18 04:00 98.3 69 18 128/76 (93) 98 11/23/18 00:00 98.0 70 18 126/77 (93) 98 11/22/18 20:47 Room Air 11/22/18 20:00 98.3 69 18 138/72 (94) 98 69 11/22/18 16:00 99.0 67 18 138/71 (93) 94 Intake and Output 11/22/18 11/23/18 19:00 07:00 Intake Total 925 ml 1205 ml Balance 925 ml 1205 ml Intake Oral 850 ml 680 ml IV Total 75 ml 525 ml # Voids 4 3 General Appearance: WD/WN HEENT: normocephalic, atraumatic Respiratory/Chest: chest wall non-tender, lungs clear Cardiovascular: normal rate, no gallop/murmur Abdomen: soft, non tender, non distended Genitourinary: normal external genitalia Extremities: no clubbing 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 Microbiology Date/Time Source Procedure Growth Status 11/21/18 18:25 Urine,Clean Catch Urine Culture - Preliminary Gram Negative Bacillus 1 Resulted 11/21/18 20:20 Rectum Received Laboratory Tests 11/23/18 05:16: White Blood Count 8.0, Red Blood Count 4.21, Hemoglobin 12.4, Hematocrit 37.2, Mean Corpuscular Volume 88, Mean Corpuscular Hemoglobin 29.5, Mean Corpuscular Hemoglobin Concent 33.5, Red Cell Distribution Width 11.2L, Platelet Count 401, Mean Platelet Volume 5.2L, Neutrophils (%) (Auto) 62.4, Lymphocytes (%) (Auto) 25.8, Monocytes (%) (Auto) 7.2, Eosinophils (%) (Auto) 3.8H, Basophils (%) (Auto ) 0.8, Sodium Level 136, Potassium Level 3.9, Chloride Level 102, Carbon Dioxide Level 25, Anion Gap 9, Blood Urea Nitrogen 13, Creatinine 1.2, Estimat Glomerular Filtration Rate 45.0, Glucose Level 109H, Calcium Level 9.2 Current Medications Medications (Trade) Dose Ordered Sig/Danielle Route PRN Reason Start Time Stop Time Status Last Admin Dose Admin Acetaminophen (Tylenol) 650 mg Q4H PRN ORAL Mild Pain/Temp > 100.5 11/21/18 22:30 12/21/18 22:29 Acetaminophen/ Hydrocodone Bitart ([place] 5/325) 1 tab Q6H PRN ORAL Severe Pain (Pain Scale 7-10) 11/21/18 22:30 11/28/18 22:29 11/23/18 02:48 Ceftriaxone Sodium 1 gm/ Dextrose 55 ml @ 110 mls/hr Q24H IVPB 11/22/18 09:00 11/29/18 08:59 11/23/18 09:09 Dextrose/Sodium Chloride 1,000 ml @ 75 mls/hr [id number] IV 11/21/18 23:00 12/21/18 22:59 11/23/18 01:49 Ondansetron HCl (Zofran) 4 mg Q4H PRN IVP Nausea & Vomiting 11/21/18 22:30 12/21/18 22:29 Kala Bhat MD Nov 23, 2018 12:49
--- NOTE | 2018-11-23 15:31 | Diagnostic Imaging Report ---
Indication: Abdominal pain Technique: Supine view of the abdomen Comparison: November 15, 2018; also CT scan dated November 21, 2018 Findings: The proximal left ureteral calculus described on recent CT scan is not evident. This may the radiographically occult or may have passed; the former is likely as it is likewise not visible on the prior plain radiograph. Bowel gas pattern is unremarkable. No masses. Impression: Proximal left ureteral calculus described on recent CT scan is not evident, either radiographically occult or has passed in the interim No definite acute process
[2018-11-23 16:00] VITALS: BP 143/66
--- NOTE | 2018-11-23 17:09 | Internal Med Progress Note ---
Subjective Date of Service: Nov 23, 2018 Physician Name Carlo Crocker Attending Physician Dion Monterroso MD Current Medications Medications (Trade) Dose Ordered Sig/Danielle Route PRN Reason Start Time Stop Time Status Last Admin Dose Admin Acetaminophen (Tylenol) 650 mg Q4H PRN ORAL Mild Pain/Temp > 100.5 11/21/18 22:30 12/21/18 22:29 Acetaminophen/ Hydrocodone Bitart ([place] 5/325) 1 tab Q6H PRN ORAL Severe Pain (Pain Scale 7-10) 11/21/18 22:30 11/28/18 22:29 11/23/18 15:18 Ceftriaxone Sodium 1 gm/ Dextrose 55 ml @ 110 mls/hr Q24H IVPB 11/22/18 09:00 11/29/18 08:59 11/23/18 09:09 Dextrose/Sodium Chloride 1,000 ml @ 75 mls/hr [id number] IV 11/21/18 23:00 12/21/18 22:59 11/23/18 15:16 Ondansetron HCl (Zofran) 4 mg Q4H PRN IVP Nausea & Vomiting 11/21/18 22:30 12/21/18 22:29 Allergies: Coded Allergies: No Known Allergies (Unverified , 11/14/18) ROS Limited/Unobtainable: No Constitutional: Reports: no symptoms HEENT: Reports: no symptoms Cardiovascular: Reports: no symptoms Respiratory: Reports: no symptoms Gastrointestinal/Abdominal: Reports: no symptoms Genitourinary: Reports: hematuria Neurologic/Psychiatric: Reports: no symptoms Subjective 68 YO F admitted with hematuria. Cover for Int med-Dr Monterroso. Objective Last Vital Signs Date Time Temp Pulse Resp B/P (MAP) Pulse Ox O2 Delivery O2 Flow Rate FiO2 11/23/18 16:00 98.5 68 21 143/66 (91) 94 11/23/18 08:30 Room Air Laboratory Tests Test 11/23/18 05:16 White Blood Count 8.0 K/UL (4.8-10.8) Red Blood Count 4.21 M/UL (4.20-5.40) Hemoglobin 12.4 G/DL (12.0-16.0) Hematocrit 37.2 % (37.0-47.0) Mean Corpuscular Volume 88 FL (80-99) Mean Corpuscular Hemoglobin 29.5 PG (27.0-31.0) Mean Corpuscular Hemoglobin Concent 33.5 G/DL (32.0-36.0) Red Cell Distribution Width 11.2 % (11.6-14.8) L Platelet Count 401 K/UL (150-450) Mean Platelet Volume 5.2 FL (6.5-10.1) L Neutrophils (%) (Auto) 62.4 % (45.0-75.0) Lymphocytes (%) (Auto) 25.8 % (20.0-45.0) Monocytes (%) (Auto) 7.2 % (1.0-10.0) Eosinophils (%) (Auto) 3.8 % (0.0-3.0) H Basophils (%) (Auto) 0.8 % (0.0-2.0) Sodium Level 136 MMOL/L (136-145) Potassium Level 3.9 MMOL/L (3.5-5.1) Chloride Level 102 MMOL/L (98-107) Carbon Dioxide Level 25 MMOL/L (21-32) Anion Gap 9 mmol/L (5-15) Blood Urea Nitrogen 13 mg/dL (7-18) Creatinine 1.2 MG/DL (0.55-1.30) Estimat Glomerular Filtration Rate 45.0 mL/min (>60) Glucose Level 109 MG/DL (74-106) H Calcium Level 9.2 MG/DL (8.5-10.1) Microbiology Date/Time Source Procedure Growth Status 11/21/18 18:25 Urine,Clean Catch Urine Culture - Preliminary Gram Negative Bacillus 1 Resulted 11/21/18 20:20 Rectum Received Intake and Output 11/22/18 11/23/18 19:00 07:00 Intake Total 925 ml 1205 ml Balance 925 ml 1205 ml Intake Oral 850 ml 680 ml IV Total 75 ml 525 ml # Voids 4 3 Objective PHYSICAL EXAMINATION: GENERAL: The patient is a well-developed and well-nourished female, in no apparent distress. HEENT: Eyes, pupils are equal and responsive to light and accommodation. Extraocular movements are intact. NECK: Supple without lymphadenopathy. CHEST: Lungs are clear to auscultation bilaterally without wheezes or rales. CARDIOVASCULAR: Regular rhythm and rate. S1 and S2 are normal without murmurs, rubs, or gallops. ABDOMEN: Soft, nontender, and nondistended. Positive bowel sounds. No evidence of hepatosplenomegaly. Currently, no rebound or guarding noted. EXTREMITIES: Negative for clubbing, cyanosis, or edema. RECTAL/GENITAL: Not performed. NEUROLOGIC: Cranial nerves II through XII are grossly intact without focal deficits. Motor strength is 5/5 bilaterally. Deep tendon reflexes are 2+ plantar. Assessment/Plan Assessment/Plan ASSESSMENT: This is a 68-year-old female. 1. Hematuria. 2. Left ureteral calculus. 3. Hydronephrosis of the left ureter. 4. Hematuria. TREATMENT: 1. Hematuria/left ureteral calculus/left hydronephrosis. A Urology consultation has been obtained with Dr. Marv Clark. Await stent placement and lithotripsy-see recommendations of Urology. The patient has been started empirically on intravenous ceftriaxone. Urine culture =gram neg leeroy; await ID and sensitivity Carlo Crocker MD Nov 23, 2018 17:09
[2018-11-23] MEDS ORDERED: D5 1/2NS 1000ml IV ONE (17:58)
--- NOTE | 2018-11-23 19:26 | NUR ---
HAND-OFF: Report given to CLARISA Alcantara.
--- NOTE | 2018-11-23 19:45 | NUR ---
NURSE NOTES: Received report from CLARISA Alcazar. Patient A&Ox4. Arabic speaking. On room air, no signs of distress or labored breathing. IV intact, patent, and infusing fluids. Bed in lowest position with call light in reach. Will continue with plan of care.
[2018-11-23 20:00] VITALS: BP 132/78
[2018-11-24] MEDS: HYDROcodone/Acetamin 5/325 tab ORAL PRN (01:30)
[2018-11-24 04:00] VITALS: BP 141/78
[2018-11-24] MEDS: D5 1/2NS 1,000 ML IV SCH ×3 (05:15→20:37)
[2018-11-24 06:45] LABS: BASOPHILS % (AUTO) 1.2 % (0.0-2.0); EOSINOPHILS % (AUTO) 3.2 % (0.0-3.0); HEMATOCRIT 38.9 % (37.0-47.0); LYMPHOCYTES % (AUTO) 27.8 % (20.0-45.0); MEAN CORPUSCULAR VOLUME 88 FL (80-99); MONOCYTES % (AUTO) 7.3 % (1.0-10.0); NEUTROPHILS % (AUTO) 60.5 % (45.0-75.0); PLATELET COUNT 431 K/UL (150-450); RED BLOOD COUNT 4.41 M/UL (4.20-5.40); RED CELL DISTRIBUTION WIDTH 11.2 % (11.6-14.8); WHITE BLOOD COUNT 7.7 K/UL (4.8-10.8)
[2018-11-24 06:57] LABS: ANION GAP 7 mmol/L (5-15); BLOOD UREA NITROGEN 17 mg/dL (7-18); CALCIUM 9.4 MG/DL (8.5-10.1); CARBON DIOXIDE 26 MMOL/L (21-32); CHLORIDE 104 MMOL/L (98-107); CREATININE 1.1 MG/DL (0.55-1.30); POTASSIUM 4.2 MMOL/L (3.5-5.1); SODIUM 137 MMOL/L (136-145)
--- NOTE | 2018-11-24 07:26 | NUR ---
HAND-OFF: Report given to CLARISA Anand.
--- NOTE | 2018-11-24 07:48 | Urology Progress Note ---
Assessment/Plan Assessment/Plan: 1. Left-sided renal colic. 2. Nephrolithiasis. 3. Hydronephrosis. 4. Hematuria. 5. Pyuria and possible UTI. 6. Proteinuria. 7. History of mild lower urinary tract symptoms. 8. Adrenal adenoma. monitor clinically plan litho/stent tomorrow morning abx as ordered f/u on final urine cx d/w pt's stepdaughter fully d/w pt fully through educational interpreter will get consent, NPO post midnight Subjective Allergies: Coded Allergies: No Known Allergies (Unverified , 11/14/18) Subjective feels fair Objective Last 24 Hour Vital Signs Date Time Temp Pulse Resp B/P (MAP) Pulse Ox O2 Delivery O2 Flow Rate FiO2 11/24/18 04:00 98.0 61 20 141/78 (99) 95 11/23/18 21:00 Room Air 11/23/18 20:00 98.1 62 20 132/78 (96) 95 11/23/18 16:00 98.5 68 21 143/66 (91) 94 11/23/18 12:00 98.4 65 21 145/77 (99) 95 11/23/18 08:30 Room Air 11/23/18 08:00 98.5 74 20 143/71 (95) 94 Intake and Output 11/23/18 11/24/18 18:59 06:59 Intake Total 975 ml Balance 975 ml IV Total 975 ml # Voids 4 10 # Bowel Movements 1 Microbiology Date/Time Source Procedure Growth Status 11/21/18 18:25 Urine,Clean Catch Urine Culture - Preliminary Gram Negative Bacillus 1 Resulted 11/21/18 20:20 Rectum Received Current Medications Medications (Trade) Dose Ordered Sig/Adnielle Route PRN Reason Start Time Stop Time Status Last Admin Dose Admin Acetaminophen (Tylenol) 650 mg Q4H PRN ORAL Mild Pain/Temp > 100.5 11/21/18 22:30 12/21/18 22:29 Acetaminophen/ Hydrocodone Bitart ([place] 5/325) 1 tab Q6H PRN ORAL Severe Pain (Pain Scale 7-10) 11/21/18 22:30 11/28/18 22:29 11/24/18 01:30 Ceftriaxone Sodium 1 gm/ Dextrose 55 ml @ 110 mls/hr Q24H IVPB 11/22/18 09:00 11/29/18 08:59 11/23/18 09:09 Dextrose/Sodium Chloride 1,000 ml @ 75 mls/hr [id number] IV 11/21/18 23:00 12/21/18 22:59 11/24/18 05:15 Ondansetron HCl (Zofran) 4 mg Q4H PRN IVP Nausea & Vomiting 11/21/18 22:30 12/21/18 22:29 Laboratory Tests 11/24/18 05:40: White Blood Count 7.7, Red Blood Count 4.41, Hemoglobin 13.0, Hematocrit 38.9, Mean Corpuscular Volume 88, Mean Corpuscular Hemoglobin 29.4, Mean Corpuscular Hemoglobin Concent 33.3, Red Cell Distribution Width 11.2L, Platelet Count 431, Mean Platelet Volume 5.1L, Neutrophils (%) (Auto) 60.5, Lymphocytes (%) (Auto) 27.8, Monocytes (%) (Auto) 7.3, Eosinophils (%) (Auto) 3.2H, Basophils (%) (Auto ) 1.2, Sodium Level 137, Potassium Level 4.2, Chloride Level 104, Carbon Dioxide Level 26, Anion Gap 7, Blood Urea Nitrogen 17, Creatinine 1.1, Estimat Glomerular Filtration Rate 49.7, Glucose Level 108H, Calcium Level 9.4 Height (Feet): 5 Height (Inches): 1.00 Weight (Pounds): 167 Objective exam stable KUB (11/23) noted and films reviewed Marv Clark MD Nov 24, 2018 07:48
[2018-11-24 08:00] VITALS: BP 152/79
[2018-11-24] MEDS: cefTRIAXone 1 GM in D5W 55 ML IVPB SCH (10:41)
--- NOTE | 2018-11-24 11:30 | Pulmonology Progress Note ---
Assessment/Plan Problems: (1) Hematuria, gross (2) Renal colic Assessment/Plan no more pain no hematuria c/o headache only improving check h/h prbc prn analgesics Subjective ROS Limited/Unobtainable: No Constitutional: Reports: no symptoms HEENT: Repors: no symptoms Respiratory: Reports: no symptoms Allergies: Coded Allergies: No Known Allergies (Unverified , 11/14/18) Objective Last 24 Hour Vital Signs Date Time Temp Pulse Resp B/P (MAP) Pulse Ox O2 Delivery O2 Flow Rate FiO2 11/24/18 08:00 97.3 77 18 152/79 (103) 95 11/24/18 04:00 98.0 61 20 141/78 (99) 95 11/23/18 21:00 Room Air 11/23/18 20:00 98.1 62 20 132/78 (96) 95 11/23/18 16:00 98.5 68 21 143/66 (91) 94 11/23/18 12:00 98.4 65 21 145/77 (99) 95 Intake and Output 11/23/18 11/24/18 19:00 07:00 Intake Total 975 ml Balance 975 ml IV Total 975 ml # Voids 4 10 # Bowel Movements 1 General Appearance: WD/WN HEENT: normocephalic, atraumatic Respiratory/Chest: chest wall non-tender, lungs clear Breasts: no masses Cardiovascular: normal peripheral pulses, normal rate Abdomen: normal bowel sounds, soft, non tender Genitourinary: normal external genitalia Skin: no rash, no lesions Microbiology Date/Time Source Procedure Growth Status 11/21/18 20:20 Nasal Nares MRSA Culture - Final NO METHICILLIN RESISTANT STAPH AUREUS... Complete 11/21/18 18:25 Urine,Clean Catch Urine Culture - Final Klebsiella Pneumoniae Complete 11/21/18 20:20 Rectum - Final NO CARBAPENEM-RESISTANT ENTEROBACTERI... Complete 11/21/18 20:20 Rectum VRE Culture - Final NO VANCOMYCIN RESISTANT ENTEROCOCCUS ... Complete Laboratory Tests 11/24/18 05:40: White Blood Count 7.7, Red Blood Count 4.41, Hemoglobin 13.0, Hematocrit 38.9, Mean Corpuscular Volume 88, Mean Corpuscular Hemoglobin 29.4, Mean Corpuscular Hemoglobin Concent 33.3, Red Cell Distribution Width 11.2L, Platelet Count 431, Mean Platelet Volume 5.1L, Neutrophils (%) (Auto) 60.5, Lymphocytes (%) (Auto) 27.8, Monocytes (%) (Auto) 7.3, Eosinophils (%) (Auto) 3.2H, Basophils (%) (Auto ) 1.2, Sodium Level 137, Potassium Level 4.2, Chloride Level 104, Carbon Dioxide Level 26, Anion Gap 7, Blood Urea Nitrogen 17, Creatinine 1.1, Estimat Glomerular Filtration Rate 49.7, Glucose Level 108H, Calcium Level 9.4 Current Medications Medications (Trade) Dose Ordered Sig/Danielle Route PRN Reason Start Time Stop Time Status Last Admin Dose Admin Acetaminophen (Tylenol) 650 mg Q4H PRN ORAL Mild Pain/Temp > 100.5 11/21/18 22:30 12/21/18 22:29 11/24/18 10:50 Acetaminophen/ Hydrocodone Bitart ([place] 5/325) 1 tab Q6H PRN ORAL Severe Pain (Pain Scale 7-10) 11/21/18 22:30 11/28/18 22:29 11/24/18 01:30 Ceftriaxone Sodium 1 gm/ Dextrose 55 ml @ 110 mls/hr Q24H IVPB 11/22/18 09:00 11/29/18 08:59 11/24/18 10:41 Dextrose/Sodium Chloride 1,000 ml @ 75 mls/hr [id number] IV 11/21/18 23:00 12/21/18 22:59 11/24/18 05:15 Ondansetron HCl (Zofran) 4 mg Q4H PRN IVP Nausea & Vomiting 11/21/18 22:30 12/21/18 22:29 Kala Bhat MD Nov 24, 2018 11:30
--- NOTE | 2018-11-24 11:44 | Internal Med Progress Note ---
Subjective Date of Service: Nov 24, 2018 Physician Name LizzetteCarlo Attending Physician Dion Monterroso MD Current Medications Medications (Trade) Dose Ordered Sig/Danielle Route PRN Reason Start Time Stop Time Status Last Admin Dose Admin Acetaminophen (Tylenol) 650 mg Q4H PRN ORAL Mild Pain/Temp > 100.5 11/21/18 22:30 12/21/18 22:29 11/24/18 10:50 Acetaminophen/ Hydrocodone Bitart ([place] 5/325) 1 tab Q6H PRN ORAL Severe Pain (Pain Scale 7-10) 11/21/18 22:30 11/28/18 22:29 11/24/18 01:30 Ceftriaxone Sodium 1 gm/ Dextrose 55 ml @ 110 mls/hr Q24H IVPB 11/22/18 09:00 11/29/18 08:59 11/24/18 10:41 Dextrose/Sodium Chloride 1,000 ml @ 75 mls/hr [id number] IV 11/21/18 23:00 12/21/18 22:59 11/24/18 05:15 Ondansetron HCl (Zofran) 4 mg Q4H PRN IVP Nausea & Vomiting 11/21/18 22:30 12/21/18 22:29 Allergies: Coded Allergies: No Known Allergies (Unverified , 11/14/18) ROS Limited/Unobtainable: No Constitutional: Reports: no symptoms HEENT: Reports: no symptoms Cardiovascular: Reports: no symptoms Respiratory: Reports: no symptoms Gastrointestinal/Abdominal: Reports: abdominal pain Genitourinary: Reports: no symptoms Neurologic/Psychiatric: Reports: no symptoms Subjective 68 YO F admitted with hematuria. Cover for Int med-Dr Monterroso. Objective Last Vital Signs Date Time Temp Pulse Resp B/P (MAP) Pulse Ox O2 Delivery O2 Flow Rate FiO2 11/24/18 08:00 97.3 77 18 152/79 (103) 95 11/23/18 21:00 Room Air Laboratory Tests Test 11/24/18 05:40 White Blood Count 7.7 K/UL (4.8-10.8) Red Blood Count 4.41 M/UL (4.20-5.40) Hemoglobin 13.0 G/DL (12.0-16.0) Hematocrit 38.9 % (37.0-47.0) Mean Corpuscular Volume 88 FL (80-99) Mean Corpuscular Hemoglobin 29.4 PG (27.0-31.0) Mean Corpuscular Hemoglobin Concent 33.3 G/DL (32.0-36.0) Red Cell Distribution Width 11.2 % (11.6-14.8) L Platelet Count 431 K/UL (150-450) Mean Platelet Volume 5.1 FL (6.5-10.1) L Neutrophils (%) (Auto) 60.5 % (45.0-75.0) Lymphocytes (%) (Auto) 27.8 % (20.0-45.0) Monocytes (%) (Auto) 7.3 % (1.0-10.0) Eosinophils (%) (Auto) 3.2 % (0.0-3.0) H Basophils (%) (Auto) 1.2 % (0.0-2.0) Sodium Level 137 MMOL/L (136-145) Potassium Level 4.2 MMOL/L (3.5-5.1) Chloride Level 104 MMOL/L (98-107) Carbon Dioxide Level 26 MMOL/L (21-32) Anion Gap 7 mmol/L (5-15) Blood Urea Nitrogen 17 mg/dL (7-18) Creatinine 1.1 MG/DL (0.55-1.30) Estimat Glomerular Filtration Rate 49.7 mL/min (>60) Glucose Level 108 MG/DL (74-106) H Calcium Level 9.4 MG/DL (8.5-10.1) Microbiology Date/Time Source Procedure Growth Status 11/21/18 20:20 Nasal Nares MRSA Culture - Final NO METHICILLIN RESISTANT STAPH AUREUS... Complete 11/21/18 18:25 Urine,Clean Catch Urine Culture - Final Klebsiella Pneumoniae Complete 11/21/18 20:20 Rectum - Final NO CARBAPENEM-RESISTANT ENTEROBACTERI... Complete 11/21/18 20:20 Rectum VRE Culture - Final NO VANCOMYCIN RESISTANT ENTEROCOCCUS ... Complete Intake and Output 11/23/18 11/24/18 19:00 07:00 Intake Total 975 ml Balance 975 ml IV Total 975 ml # Voids 4 10 # Bowel Movements 1 Objective PHYSICAL EXAMINATION: GENERAL: The patient is a well-developed and well-nourished female, in no apparent distress. HEENT: Eyes, pupils are equal and responsive to light and accommodation. Extraocular movements are intact. NECK: Supple without lymphadenopathy. CHEST: Lungs are clear to auscultation bilaterally without wheezes or rales. CARDIOVASCULAR: Regular rhythm and rate. S1 and S2 are normal without murmurs, rubs, or gallops. ABDOMEN: Soft, nontender, and nondistended. Positive bowel sounds. No evidence of hepatosplenomegaly. Currently, no rebound or guarding noted. EXTREMITIES: Negative for clubbing, cyanosis, or edema. RECTAL/GENITAL: Not performed. NEUROLOGIC: Cranial nerves II through XII are grossly intact without focal deficits. Motor strength is 5/5 bilaterally. Deep tendon reflexes are 2+ plantar. Assessment/Plan Assessment/Plan ASSESSMENT: This is a 68-year-old female. 1. Hematuria. 2. Left ureteral calculus. 3. Hydronephrosis of the left ureter. 4. Hematuria. 5. UTI TREATMENT: 1. Hematuria/left ureteral calculus/left hydronephrosis. A Urology consultation has been obtained with Dr. Marv Clark. Scheduled for stent placement and lithotripsy 11/25/18-see recommendations of Urology. ABX= ceftriaxone. Urine culture =Klebsiella pneumoniae Carlo Crocker MD Nov 24, 2018 11:44
[2018-11-24 12:00] VITALS: BP 136/68
--- NOTE | 2018-11-24 13:34 | Anethesia Preoperative Eval ---
Anesthesia Pre-op PMH/ROS General Date of Evaluation: Nov 24, 2018 Time of Evaluation: 13:33 Anesthesiologist: hedy ASA Score: ASA 2 Mallampati Score Class I : Soft palate, uvula, fauces, pillars visible Class II: Soft palate, uvula, fauces visible Class III: Soft palate, base of uvula visible Class IV: Only hard plate visible Mallampati Classification: Class II Surgeon: ramila Diagnosis: renal calculus Surgical Procedure: Lith/stent Anesthesia History: none Family History: no anesthesia problems Allergies: Coded Allergies: No Known Allergies (Unverified , 11/14/18) Medications: see eMAR Patient NPO?: Yes NPO Date: Nov 24, 2018 NPO Time: 00:01 Past Medical History Cardiovascular: Denies: HTN, CAD, DE, valve dz, arrhythmia, other Gastrointestinal/Genitourinary: Reports: other - renal calculus and hematuria; Denies: GERD, CRI, ESRD HEENT: Denies: cataract (L), cataract (R), glaucoma, ALGAACIQ (L), ALGAACIQ (R), other Hematology/Immune: Denies: anemia, DVT, bleeding disorder, other Musculoskeletal/Integumentary: Denies: OA, RA, DJD, DDD, edema, other PMH Narrative: recent discharge 11/17/18 [place] [facility] [place] Uteral stone PSxH Narrative: ovarian cyst removal Anesthesia Pre-op Phys. Exam Physician Exam Last Vital Signs Date Time Temp Pulse Resp B/P (MAP) Pulse Ox O2 Delivery O2 Flow Rate FiO2 11/24/18 12:00 97.3 67 18 136/68 (90) 97 11/24/18 09:00 Room Air Constitutional: NAD Neurologic: CN 2-12 intact Cardiovascular: RRR Respiratory: CTA Gastrointestinal: S/NT/ND Airway Exam Mallampati Classification 2 Mallampati Score: Class II MO: full ROM: full Dentures: no upper, no lower Anesthesia Pre-op A/P Labs Hematology Test 11/24/18 05:40 White Blood Count 7.7 K/UL (4.8-10.8) Red Blood Count 4.41 M/UL (4.20-5.40) Hemoglobin 13.0 G/DL (12.0-16.0) Hematocrit 38.9 % (37.0-47.0) Mean Corpuscular Volume 88 FL (80-99) Mean Corpuscular Hemoglobin 29.4 PG (27.0-31.0) Mean Corpuscular Hemoglobin Concent 33.3 G/DL (32.0-36.0) Red Cell Distribution Width 11.2 % (11.6-14.8) L Platelet Count 431 K/UL (150-450) Mean Platelet Volume 5.1 FL (6.5-10.1) L Neutrophils (%) (Auto) 60.5 % (45.0-75.0) Lymphocytes (%) (Auto) 27.8 % (20.0-45.0) Monocytes (%) (Auto) 7.3 % (1.0-10.0) Eosinophils (%) (Auto) 3.2 % (0.0-3.0) H Basophils (%) (Auto) 1.2 % (0.0-2.0) Chemistry Test 11/24/18 05:40 Sodium Level 137 MMOL/L (136-145) Potassium Level 4.2 MMOL/L (3.5-5.1) Chloride Level 104 MMOL/L (98-107) Carbon Dioxide Level 26 MMOL/L (21-32) Anion Gap 7 mmol/L (5-15) Blood Urea Nitrogen 17 mg/dL (7-18) Creatinine 1.1 MG/DL (0.55-1.30) Estimat Glomerular Filtration Rate 49.7 mL/min (>60) Glucose Level 108 MG/DL (74-106) H Calcium Level 9.4 MG/DL (8.5-10.1) Studies Pre-op Studies: EKG - Ssr Risk Assessment & Plan Plan: Petra Rendon CRNA Nov 24, 2018 13:34
[2018-11-24 16:00] VITALS: BP 132/74
--- NOTE | 2018-11-24 19:38 | NUR ---
HAND-OFF: Report given to CLARISA Elliott.
--- NOTE | 2018-11-24 19:40 | NUR ---
NURSE NOTES: Patient sitting on chair, talking to the family at bedside. Patient urinated with clear to yellow color and with 2 inches red colored streak. Per patient it went out when she urinated. Instructed the use of call light. Call light and needs in reach. Bed in lowest position and lock on. Will continue to monitor.
[2018-11-24 20:00] VITALS: BP 147/78
--- NOTE | 2018-11-24 21:00 | NUR ---
NURSE NOTES: Patient and family were instructed on NPO post midnight. Patient verbalized understanding.
--- NOTE | 2018-11-24 21:33 | NUR ---
NURSE NOTES: Spoke with Dr. Clark and made him aware of blood streak in the urine. No orders at this time.
[2018-11-24 23:54] VITALS: BP 148/83
[2018-11-25] VITALS (13 sets, daily range): BP systolic 115–164; BP diastolic 61–91
--- NOTE | 2018-11-25 06:15 | NUR ---
NURSE NOTES: Kept patient on NPO post midnight.
[2018-11-25] MEDS ORDERED: fentaNYL 100 mcg/2 mL IV ONE (06:34)
[2018-11-25] MEDS ORDERED: Midazolam 2mg/2ml Inj ONE (06:35)
[2018-11-25 06:36] LABS: BASOPHILS % (AUTO) 0.8 % (0.0-2.0); HEMATOCRIT 44.2 % (37.0-47.0); HEMOGLOBIN 14.7 G/DL (12.0-16.0); LYMPHOCYTES % (AUTO) 25.2 % (20.0-45.0); MEAN CORPUSCULAR VOLUME 88 FL (80-99); MONOCYTES % (AUTO) 5.2 % (1.0-10.0); NEUTROPHILS % (AUTO) 66.7 % (45.0-75.0); PLATELET COUNT 556 K/UL (150-450); RED BLOOD COUNT 5.03 M/UL (4.20-5.40); RED CELL DISTRIBUTION WIDTH 10.9 % (11.6-14.8); WHITE BLOOD COUNT 8.9 K/UL (4.8-10.8)
[2018-11-25] MEDS ORDERED: Zemuron 50mg/5ml Inj IV ONE (06:40)
[2018-11-25] MEDS ORDERED: cefOXitin 1gm Inj ONE (06:40)
[2018-11-25 06:49] LABS: ANION GAP 12 mmol/L (5-15); BLOOD UREA NITROGEN 17 mg/dL (7-18); CALCIUM 10.3 MG/DL (8.5-10.1); CARBON DIOXIDE 25 MMOL/L (21-32); CHLORIDE 101 MMOL/L (98-107); CREATININE 1.2 MG/DL (0.55-1.30); POTASSIUM 3.7 MMOL/L (3.5-5.1); SODIUM 138 MMOL/L (136-145)
[2018-11-25] MEDS ORDERED: Propofol 200mg/20ml IV ONE (06:52)
[2018-11-25] MEDS ORDERED: Lidocaine 1% MPF 10mg/ml 5ml ONE (06:52)
[2018-11-25] MEDS ORDERED: Succinylcholine 20mg/ml 10ml vial ONE (07:00)
[2018-11-25] MEDS ORDERED: Neostigmine 1mg/ml 10ml Inj ONE (07:00)
[2018-11-25] MEDS ORDERED: Sterile Water Irrig 1000ml IRRIG ONE (07:00)
--- NOTE | 2018-11-25 07:07 | Urology Progress Note ---
Assessment/Plan Assessment/Plan: 1. Left-sided renal colic. 2. Nephrolithiasis. 3. Hydronephrosis. 4. Hematuria. 5. Pyuria and possible UTI. 6. Proteinuria. 7. History of mild lower urinary tract symptoms. 8. Adrenal adenoma. 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 has been NPO consent singed Subjective Allergies: Coded Allergies: No Known Allergies (Unverified , 11/14/18) Subjective feels fair, plan litho today Objective Last 24 Hour Vital Signs Date Time Temp Pulse Resp B/P (MAP) Pulse Ox O2 Delivery O2 Flow Rate FiO2 11/25/18 04:00 97.9 80 20 137/88 (104) 96 11/24/18 23:54 97.8 71 19 148/83 (104) 98 11/24/18 21:00 Room Air 11/24/18 20:00 98.1 73 18 147/78 (101) 98 11/24/18 16:00 97.8 71 18 132/74 (93) 95 11/24/18 12:00 97.3 67 18 136/68 (90) 97 11/24/18 11:20 97.3 11/24/18 09:00 Room Air 11/24/18 08:00 97.3 77 18 152/79 (103) 95 Intake and Output 11/24/18 11/25/18 18:59 06:59 Intake Total 1642 ml 1200 ml Balance 1642 ml 1200 ml Intake Oral 300 ml IV Total 842 ml 900 ml Other 800 ml # Voids 5 Microbiology Date/Time Source Procedure Growth Status 11/21/18 20:20 Nasal Nares MRSA Culture - Final NO METHICILLIN RESISTANT STAPH AUREUS... Complete 11/21/18 18:25 Urine,Clean Catch Urine Culture - Final Klebsiella Pneumoniae Complete 11/21/18 20:20 Rectum - Final NO CARBAPENEM-RESISTANT ENTEROBACTERI... Complete Current Medications Medications (Trade) Dose Ordered Sig/Danielle Route PRN Reason Start Time Stop Time Status Last Admin Dose Admin Acetaminophen (Tylenol) 650 mg Q4H PRN ORAL Mild Pain/Temp > 100.5 11/21/18 22:30 12/21/18 22:29 11/24/18 10:50 Acetaminophen/ Hydrocodone Bitart ([place] 5/325) 1 tab Q6H PRN ORAL Severe Pain (Pain Scale 7-10) 11/21/18 22:30 11/28/18 22:29 11/24/18 01:30 Ceftriaxone Sodium 1 gm/ Dextrose 55 ml @ 110 mls/hr Q24H IVPB 11/22/18 09:00 11/29/18 08:59 11/24/18 10:41 Dextrose/Sodium Chloride 1,000 ml @ 75 mls/hr [id number] IV 11/21/18 23:00 12/21/18 22:59 11/24/18 20:37 Ondansetron HCl (Zofran) 4 mg Q4H PRN IVP Nausea & Vomiting 11/21/18 22:30 12/21/18 22:29 Laboratory Tests 11/25/18 05:45: White Blood Count 8.9, Red Blood Count 5.03, Hemoglobin 14.7, Hematocrit 44.2, Mean Corpuscular Volume 88, Mean Corpuscular Hemoglobin 29.3, Mean Corpuscular Hemoglobin Concent 33.3, Red Cell Distribution Width 10.9L, Platelet Count 556H , Mean Platelet Volume 5.1L, Neutrophils (%) (Auto) 66.7, Lymphocytes (%) (Auto ) 25.2, Monocytes (%) (Auto) 5.2, Eosinophils (%) (Auto) 2.0, Basophils (%) ( Auto) 0.8, Sodium Level 138, Potassium Level 3.7, Chloride Level 101, Carbon Dioxide Level 25, Anion Gap 12, Blood Urea Nitrogen 17, Creatinine 1.2, Estimat Glomerular Filtration Rate 45.0, Glucose Level 113H, Calcium Level 10.3H Height (Feet): 5 Height (Inches): 1.00 Weight (Pounds): 167 Objective exam stable KUB (11/23) noted and films reviewed Marv Clark MD Nov 25, 2018 07:07
--- NOTE | 2018-11-25 07:08 | Pre-Procedure Note/Attestation ---
Pre-Procedure Note/Attestation Complete Prior to Procedure Planned Procedure: left Procedure Narrative: cystoscopy, ureteroscopy, laser and shockwave litho, ureteral stent Indications for Procedure Pre-Operative Diagnosis: left prox ureteral calc, hydro, colic, hematuria Attestation I attest that I discussed the nature of the procedure; its benefits; risks and complications; and alternatives (and the risks and benefits of such alternatives ), prior to the procedure, with the patient (or the patient's legal renewals representative). I attest that, if there was a reasonable possibility of needing a blood transfusion, the patient (or the patient's legal renewals representative) was given the [place] Department of Health Services standardized written summary, pursuant to the [place] Blood Safety Act ([place] Health and Safety Code # 1645, as amended). I attest that I re-evaluated the patient just prior to the surgery and that there has been no change in the patient's H&P, except as documented below: Marv Clark MD Nov 25, 2018 07:08
--- NOTE | 2018-11-25 07:30 | NUR ---
HAND-OFF: Report given to CLARISA Black.
[2018-11-25] MEDS ORDERED: NS Irrig 4000ml IRRIG ONE (07:49)
[2018-11-25] MEDS ORDERED: Sterile Water For Irrig 2000ml IRRIG ONE (07:49)
[2018-11-25] MEDS ORDERED: Iothalamate Meglumine 60% 30ML INJ ONE (07:50)
[2018-11-25] MEDS ORDERED: Glycopyrrolate 0.2mg/ml 1ml Vial ONE (07:53)
[2018-11-25] MEDS ORDERED: LR 1000ml 1,000 ML IVLG SCH (08:48)
--- NOTE | 2018-11-25 08:49 | Brief Operative Note ---
Immediate Post Operative Note Operative Note Pre-op Diagnosis: left prox ureteral calc, hydro, colic, hematuria Procedure: cysto, left ureteroscopy, laser and shockwave litho, RPG, ureteral stent Post-op Diagnosis: same as pre-op Findings: other - probable uric acid stone Surgeon: ramila Anesthesiologist: maria del rosario Anesthesia: general Specimen: none Complications: none Condition: stable Fluids: NS Estimated Blood Loss: minimal Implant(s) used?: Yes - 6f x 26 cm left ureteral JJ stent Marv Clark MD Nov 25, 2018 08:49
[2018-11-25] MEDS ORDERED: Ketorolac 30mg Inj IV PRN (09:00)
--- NOTE | 2018-11-25 09:18 | Immediate Post-Op Evaluation ---
Immediate Post-Op Evalulation Immediate Post-Op Evalulation Procedure: Cysto,retrograde pyelogram ESWL,laser lithotrypsy Date of Evaluation: Nov 25, 2018 Time of Evaluation: 09:17 IV Fluids: 800 Blood Products: none Estimated Blood Loss: n/a Urinary Output: n/a Blood Pressure Systolic: 156 Blood Pressure Diastolic: 72 Pulse Rate: 62 Respiratory Rate: 20 O2 Sat by Pulse Oximetry: 99 Temperature (Fahrenheit): 97.5 Pain Score (1-10): 1 Nausea: No Vomiting: No Complications none Patient Status: reacts, patent, extubated, none Hydration Status: adequate Satish Hanson MD Nov 25, 2018 09:18
[2018-11-25] MEDS: Hydromorphone 0.5mg/0.5ml inj IVP PRN ×2 (09:22→09:48)
--- NOTE | 2018-11-25 10:20 | NUR ---
NURSE NOTES: Patient came back from OR after Cystoscopy, L-Ureteroscopy, alert x4, Chinese speaking, IV Left Hand 20 G NS running; on nasal cannula 3 Liter, no sing of distress and shortness of breath; no sing of chest pain;, side rails up x2, breaks engaged, bed at lowest level. Powell in place, drains bloody urine. Call light within reach; vitals taken upon arraival to the unit. will keep monitoring.
--- NOTE | 2018-11-25 11:00 | NUR ---
NURSE NOTES: Incentive Spirometer provided to patient, patient and family teaching given how to use the Incentive Spirometer.
[2018-11-25] MEDS: cefTRIAXone 1 GM in D5W 55 ML IVPB SCH (11:06)
--- NOTE | 2018-11-25 11:49 | Pulmonology Progress Note ---
Assessment/Plan Problems: (1) Hematuria, gross (2) Renal colic Assessment/Plan had Urethral stenting today, has hematuria c/o headache only improving check h/h prbc prn analgesics dc home when OK with hematology Subjective ROS Limited/Unobtainable: No Constitutional: Reports: no symptoms HEENT: Repors: no symptoms Allergies: Coded Allergies: No Known Allergies (Unverified , 11/14/18) Objective Last 24 Hour Vital Signs Date Time Temp Pulse Resp B/P (MAP) Pulse Ox O2 Delivery O2 Flow Rate FiO2 11/25/18 10:20 97.2 83 20 154/91 (112) 98 11/25/18 10:20 98.0 11/25/18 10:08 98.0 66 16 139/66 100 Nasal Cannula 3 11/25/18 10:01 98.1 11/25/18 10:00 63 13 138/67 100 Nasal Cannula 3 11/25/18 09:55 65 16 150/68 100 Nasal Cannula 3 11/25/18 09:40 66 16 161/79 100 Simple Mask 6 11/25/18 09:30 67 17 160/79 100 Simple Mask 6 11/25/18 09:20 70 15 158/77 100 Simple Mask 6 11/25/18 09:18 62 20 99 11/25/18 09:15 72 18 164/75 100 Simple Mask 6 11/25/18 09:11 98.3 89 20 162/89 100 Simple Mask 6 11/25/18 09:00 Room Air 11/25/18 04:00 97.9 80 20 137/88 (104) 96 11/24/18 23:54 97.8 71 19 148/83 (104) 98 11/24/18 21:00 Room Air 11/24/18 20:00 98.1 73 18 147/78 (101) 98 11/24/18 16:00 97.8 71 18 132/74 (93) 95 11/24/18 12:00 97.3 67 18 136/68 (90) 97 Intake and Output 11/24/18 11/25/18 18:59 06:59 Intake Total 1642 ml 1200 ml Balance 1642 ml 1200 ml Intake Oral 300 ml IV Total 842 ml 900 ml Other 800 ml # Voids 5 General Appearance: WD/WN HEENT: normocephalic, atraumatic Respiratory/Chest: chest wall non-tender, lungs clear Breasts: no masses Cardiovascular: normal peripheral pulses, normal rate Abdomen: normal bowel sounds, soft, non tender Genitourinary: normal external genitalia Extremities: no clubbing Neurologic/Psychiatric: water attendant II-XII grossly normal Laboratory Tests 11/25/18 05:45: White Blood Count 8.9, Red Blood Count 5.03, Hemoglobin 14.7, Hematocrit 44.2, Mean Corpuscular Volume 88, Mean Corpuscular Hemoglobin 29.3, Mean Corpuscular Hemoglobin Concent 33.3, Red Cell Distribution Width 10.9L, Platelet Count 556H , Mean Platelet Volume 5.1L, Neutrophils (%) (Auto) 66.7, Lymphocytes (%) (Auto ) 25.2, Monocytes (%) (Auto) 5.2, Eosinophils (%) (Auto) 2.0, Basophils (%) ( Auto) 0.8, Sodium Level 138, Potassium Level 3.7, Chloride Level 101, Carbon Dioxide Level 25, Anion Gap 12, Blood Urea Nitrogen 17, Creatinine 1.2, Estimat Glomerular Filtration Rate 45.0, Glucose Level 113H, Calcium Level 10.3H Current Medications Medications (Trade) Dose Ordered Sig/Danielle Route PRN Reason Start Time Stop Time Status Last Admin Dose Admin Acetaminophen (Tylenol) 650 mg Q4H PRN ORAL Mild Pain/Temp > 100.5 11/21/18 22:30 12/21/18 22:29 11/24/18 10:50 Acetaminophen/ Hydrocodone Bitart ([place] 5/325) 1 tab Q6H PRN ORAL Severe Pain (Pain Scale 7-10) 11/21/18 22:30 11/28/18 22:29 11/24/18 01:30 Ceftriaxone Sodium 1 gm/ Dextrose 55 ml @ 110 mls/hr Q24H IVPB 11/22/18 09:00 11/29/18 08:59 11/25/18 11:06 Dextrose/Sodium Chloride 1,000 ml @ 75 mls/hr [id number] IV 11/21/18 23:00 12/21/18 22:59 11/24/18 20:37 Ondansetron HCl (Zofran) 4 mg Q4H PRN IVP Nausea & Vomiting 11/21/18 22:30 12/21/18 22:29 11/25/18 11:06 Kala Bhat MD Nov 25, 2018 11:49
--- NOTE | 2018-11-25 12:30 | NUR ---
NURSE NOTES: Patient feels nauseated and Zofran 4mg given, will keep monitoring.
[2018-11-25] MEDS: HYDROcodone/Acetamin 5/325 tab ORAL PRN (15:30)
--- NOTE | 2018-11-25 17:51 | Internal Med Progress Note ---
Subjective Date of Service: Nov 25, 2018 Physician Name Carlo Crocker Attending Physician Dion Monterroso MD Current Medications Medications (Trade) Dose Ordered Sig/Danielle Route PRN Reason Start Time Stop Time Status Last Admin Dose Admin Acetaminophen (Tylenol) 650 mg Q4H PRN ORAL Mild Pain/Temp > 100.5 11/21/18 22:30 12/21/18 22:29 11/24/18 10:50 Acetaminophen/ Hydrocodone Bitart ([place] 5/325) 1 tab Q6H PRN ORAL Severe Pain (Pain Scale 7-10) 11/21/18 22:30 11/28/18 22:29 11/25/18 15:30 Ceftriaxone Sodium 1 gm/ Dextrose 55 ml @ 110 mls/hr Q24H IVPB 11/22/18 09:00 11/29/18 08:59 11/25/18 11:06 Dextrose/Sodium Chloride 1,000 ml @ 75 mls/hr [id number] IV 11/21/18 23:00 12/21/18 22:59 11/24/18 20:37 Ondansetron HCl (Zofran) 4 mg Q4H PRN IVP Nausea & Vomiting 11/21/18 22:30 12/21/18 22:29 11/25/18 11:06 Allergies: Coded Allergies: No Known Allergies (Unverified , 11/14/18) ROS Limited/Unobtainable: No Constitutional: Reports: no symptoms HEENT: Reports: no symptoms Cardiovascular: Reports: no symptoms Respiratory: Reports: no symptoms Gastrointestinal/Abdominal: Reports: no symptoms Genitourinary: Reports: no symptoms Neurologic/Psychiatric: Reports: no symptoms Subjective 68 YO F admitted with hematuria. Cover for Int med-Dr Monterroso. S/P left ureteroscopy, lithotripsy and stent placement 11/25/18 Objective Last Vital Signs Date Time Temp Pulse Resp B/P (MAP) Pulse Ox O2 Delivery O2 Flow Rate FiO2 11/25/18 16:00 97.9 11/25/18 16:00 78 18 135/76 (95) 96 11/25/18 10:08 Nasal Cannula 3 Laboratory Tests Test 11/25/18 05:45 White Blood Count 8.9 K/UL (4.8-10.8) Red Blood Count 5.03 M/UL (4.20-5.40) Hemoglobin 14.7 G/DL (12.0-16.0) Hematocrit 44.2 % (37.0-47.0) Mean Corpuscular Volume 88 FL (80-99) Mean Corpuscular Hemoglobin 29.3 PG (27.0-31.0) Mean Corpuscular Hemoglobin Concent 33.3 G/DL (32.0-36.0) Red Cell Distribution Width 10.9 % (11.6-14.8) L Platelet Count 556 K/UL (150-450) H Mean Platelet Volume 5.1 FL (6.5-10.1) L Neutrophils (%) (Auto) 66.7 % (45.0-75.0) Lymphocytes (%) (Auto) 25.2 % (20.0-45.0) Monocytes (%) (Auto) 5.2 % (1.0-10.0) Eosinophils (%) (Auto) 2.0 % (0.0-3.0) Basophils (%) (Auto) 0.8 % (0.0-2.0) Sodium Level 138 MMOL/L (136-145) Potassium Level 3.7 MMOL/L (3.5-5.1) Chloride Level 101 MMOL/L (98-107) Carbon Dioxide Level 25 MMOL/L (21-32) Anion Gap 12 mmol/L (5-15) Blood Urea Nitrogen 17 mg/dL (7-18) Creatinine 1.2 MG/DL (0.55-1.30) Estimat Glomerular Filtration Rate 45.0 mL/min (>60) Glucose Level 113 MG/DL (74-106) H Calcium Level 10.3 MG/DL (8.5-10.1) H Intake and Output 11/24/18 11/25/18 19:00 07:00 Intake Total 1567 ml 1200 ml Balance 1567 ml 1200 ml Intake Oral 300 ml IV Total 767 ml 900 ml Other 800 ml # Voids 5 Objective PHYSICAL EXAMINATION: GENERAL: The patient is a well-developed and well-nourished female, in no apparent distress. HEENT: Eyes, pupils are equal and responsive to light and accommodation. Extraocular movements are intact. NECK: Supple without lymphadenopathy. CHEST: Lungs are clear to auscultation bilaterally without wheezes or rales. CARDIOVASCULAR: Regular rhythm and rate. S1 and S2 are normal without murmurs, rubs, or gallops. ABDOMEN: Soft, nontender, and nondistended. Positive bowel sounds. No evidence of hepatosplenomegaly. Currently, no rebound or guarding noted. EXTREMITIES: Negative for clubbing, cyanosis, or edema. RECTAL/GENITAL: Not performed. NEUROLOGIC: Cranial nerves II through XII are grossly intact without focal deficits. Motor strength is 5/5 bilaterally. Deep tendon reflexes are 2+ plantar. Assessment/Plan Assessment/Plan ASSESSMENT: This is a 68-year-old female. 1. Hematuria. 2. Left ureteral calculus. 3. Hydronephrosis of the left ureter. 4. Hematuria. 5. UTI TREATMENT: 1. Hematuria/left ureteral calculus/left hydronephrosis. A Urology consultation has been obtained with Dr. Marv Clark. S/P left ureteroscopy, stent placement and lithotripsy 11/25/18- see Urology note ABX= ceftriaxone. Urine culture =Klebsiella pneumoniae Carlo Crocker MD Nov 25, 2018 17:51
--- NOTE | 2018-11-25 19:30 | NUR ---
NURSE NOTES: Patient is awake in bed, no complaints of pain, with Powell catheter intact and draining well with dark maría and pink colored urine. Instructed the use of call light. Call light and needs in reach. Bed in lowest position. Encouraged patient to move from side to sides. Breathing exercise. Will continue to monitor.
--- NOTE | 2018-11-25 20:05 | NUR ---
HAND-OFF: Report given to CLARISA Lovett.
[2018-11-25] MEDS: Sodium Bicarbonate 50 ML in D5 1/2NS 1,000 ML IV SCH (22:06)
[2018-11-26] VITALS: BP 124/61
[2018-11-26] MEDS: HYDROcodone/Acetamin 5/325 tab ORAL PRN ×2 (01:56→20:06)
--- NOTE | 2018-11-26 02:15 | Operative Note - Dictated ---
DATE OF OPERATION: 11/25/2018 PREOPERATIVE DIAGNOSIS: Obstructed left proximal ureteral calculus with hydronephrosis. POSTOPERATIVE DIAGNOSIS: Obstructed left proximal ureteral calculus with hydronephrosis, stone completely impacted. PROCEDURE PERFORMED: Cystoscopy, left ureteroscopy, laser lithotripsy, shockwave lithotripsy, retrograde pyelogram, placement of double-J stent. OPERATING SURGEON: Marv Clark M.D. ANESTHESIOLOGIST: Satish Hanson M.D. ANESTHESIA: General. INDICATION FOR PROCEDURE: This is a pleasant 68-year-old female. She was admitted to the hospital last week because of flank pain and was noted to have a stone of the left proximal ureter with hydronephrosis. The patient's pain did resolve and she went home, but she came back because of hematuria and some pain. Repeat imaging showed that the stone was persistent, and as such, the decision was made to proceed with treatment of this stone during this admission. As such, she was scheduled for the above procedure. Possible risks and complication of bleeding, infection, anesthesia, damage to the bladder, urethra, need for further surgery were discussed. No guarantees were given or implied. FINDINGS: The patient had a large stone which is radiolucent. This was in the proximal left ureter. The stone was completely impacted into the wall of the ureter, I was able to treat it. PROCEDURE IN DETAIL: Informed consent was obtained from the patient, the patient was brought to the operative room and then placed in supine position. After successful general anesthesia was induced, the patient was then placed in a modified dorsal lithotomy position, and her genital area was then prepped and draped in usual sterile fashion. The patient had been on preoperative antibiotics on the floor. Time-out was performed. The urethra was gently dilated. Cystoscopy was then performed. The bladder was inspected carefully. There were no bladder tumors. On oven heater fluoroscopy, the stone was not visible at all. The left ureteral orifice was identified. It was cannulated with the open-ended catheter, and then at this point, an angled Glidewire was then passed up. The wire was then caught up at the level of the stone and I was not able to advance the wire at all and it appeared that the stone was completely impacted. After multiple tries, I was not able to get the wire to go through. At this point, I then removed the wire and I injected contrast through the open-ended catheter and none of the contrast would go past the stone into the proximal collecting system and I believe again the stone was completely impacted into the wall of the ureter. I eventually tried a straight Glidewire. I was able to be negotiate it past the stone into the kidney collecting system. This was left as a safety wire. At this point, because of the stenosis of the distal ureter, this was dilated with a dual-lumen catheter. Rigid ureteroscopy was then performed. I was able to get to the level of the stone. Again, it was impacted into the wall of the ureter. I was able to very gently disimpact it at this time. It went proximally back into the kidney. I then inspected the area of the impaction. The ureter appeared to be slightly thin in that area. I did inject contrast. There was no extravasation. At this point, a second wire was then passed up. I then passed the flexible ureteroscope up into the kidney. I was able to identify the stone in the mid calyx near the pelvic area. It appeared to be shiny yellow, most consistent with uric acid. Again, it was completely radiolucent. I then used the tip of the scope as a guide and Dornier lithotripsy was used to break the stone and simultaneously I used a 200 micron holmium laser fiber and the stone was then fragmented into small pieces. A total of 2500 shocks were delivered. At the end of the procedure, stones appeared to be passable. Contrast was again injected. The collecting system was delineated and I was then able to pass a 6-Arabic x 26 centimeter double-J stent into the collecting system under fluoroscopic guidance. It was in good position with a good curl in the bladder. A small string was left at the end. Powell catheter was placed. The patient was awakened and was taken to the recovery room in stable condition. Blood loss was minimal. No complication. Marv Clark M.D. DR: Luis JOB#: [id number] CC: Carlo Crocker M.D.; Fax#: [phone]
[2018-11-26 04:00] VITALS: BP 117/58
[2018-11-26 06:45] LABS: BASOPHILS % (AUTO) 0.6 % (0.0-2.0); HEMATOCRIT 35.6 % (37.0-47.0); HEMOGLOBIN 11.9 G/DL (12.0-16.0); LYMPHOCYTES % (AUTO) 20.5 % (20.0-45.0); MEAN CORPUSCULAR VOLUME 88 FL (80-99); MONOCYTES % (AUTO) 6.1 % (1.0-10.0); NEUTROPHILS % (AUTO) 69.7 % (45.0-75.0); PLATELET COUNT 421 K/UL (150-450); RED BLOOD COUNT 4.03 M/UL (4.20-5.40)
[2018-11-26 07:10] LABS: ANION GAP 6 mmol/L (5-15); BLOOD UREA NITROGEN 12 mg/dL (7-18); CALCIUM 9.1 MG/DL (8.5-10.1); CARBON DIOXIDE 27 MMOL/L (21-32); CHLORIDE 104 MMOL/L (98-107); SODIUM 137 MMOL/L (136-145)
--- NOTE | 2018-11-26 07:21 | NUR ---
HAND-OFF: Report given to CLARISA Black.
--- NOTE | 2018-11-26 07:29 | 48 Hour Post Anesthesia Eval ---
Post Anesthesia Evaluation Procedure: Cysto,retrograde pyelogram ESWL,laser lithotrypsy Date of Evaluation: Nov 26, 2018 Time of Evaluation: 07:28 Blood Pressure Systolic: 118 0: 72 Pulse Rate: 72 Respiratory Rate: 22 Temperature (Fahrenheit): 97.6 O2 Sat by Pulse Oximetry: 98 Airway: patent Nausea: No Vomiting: No Pain Intensity: 2 Hydration Status: adequate Cardiopulmonary Status: stable Mental Status/LOC: patient returned to baseline Follow-up Care/Observations: n/a Post-Anesthesia Complications: none Follow-up care needed: N/A Satish Hanson MD Nov 26, 2018 07:29
--- NOTE | 2018-11-26 07:44 | NUR ---
NURSE NOTES: Patient awake, alert x4, eating breakfast, Palestinian speaking; on room air, no sing of distress and shortness of breath; no sing of chest pain; IV L-Hand 20G D51/2NS Na bicarbonate running at 75cc; Powell in place, drains reddish urine; Incentive spirometer at the bed side, patient encouraged to use it; side rails up x2, breaks engaged, bed at lowest position; call light within reach; will keep monitoring.
--- NOTE | 2018-11-26 07:56 | Urology Progress Note ---
Assessment/Plan Assessment/Plan: 1. Left-sided renal colic. 2. Nephrolithiasis. 3. Hydronephrosis. 4. Hematuria. 5. Pyuria and possible UTI. 6. Proteinuria. 7. History of mild lower urinary tract symptoms. 8. Adrenal adenoma. 9. POD # 1, left ureteroscopy/litho/stent monitor clinically abx as ordered alkalinization dc terry strain urine Subjective Allergies: Coded Allergies: No Known Allergies (Unverified , 11/14/18) Subjective feels fair Objective Last 24 Hour Vital Signs Date Time Temp Pulse Resp B/P (MAP) Pulse Ox O2 Delivery O2 Flow Rate FiO2 11/26/18 07:29 72 22 98 11/26/18 04:00 98.8 68 16 117/58 (77) 97 11/26/18 00:00 97.5 83 16 124/61 (82) 100 11/25/18 21:00 99.1 80 16 115/61 (79) 96 11/25/18 21:00 Room Air 11/25/18 16:00 97.9 11/25/18 16:00 98.8 78 18 135/76 (95) 96 11/25/18 12:00 97.9 69 18 128/72 (90) 96 11/25/18 10:20 97.2 83 20 154/91 (112) 98 11/25/18 10:20 98.0 11/25/18 10:08 98.0 66 16 139/66 100 Nasal Cannula 3 11/25/18 10:01 98.1 11/25/18 10:00 63 13 138/67 100 Nasal Cannula 3 11/25/18 09:55 65 16 150/68 100 Nasal Cannula 3 11/25/18 09:40 66 16 161/79 100 Simple Mask 6 11/25/18 09:30 67 17 160/79 100 Simple Mask 6 11/25/18 09:20 70 15 158/77 100 Simple Mask 6 11/25/18 09:18 62 20 99 11/25/18 09:15 72 18 164/75 100 Simple Mask 6 11/25/18 09:11 98.3 89 20 162/89 100 Simple Mask 6 11/25/18 09:00 Room Air Intake and Output 11/25/18 11/26/18 19:00 07:00 Intake Total 2110 ml 600 ml Output Total 700 ml 1000 ml Balance 1410 ml -400 ml Intake Oral 200 ml IV Total 1910 ml 600 ml Output Urine Total 650 ml 1000 ml Estimated Blood Loss 50 ml Microbiology Date/Time Source Procedure Growth Status 11/21/18 20:20 Nasal Nares MRSA Culture - Final NO METHICILLIN RESISTANT STAPH AUREUS... Complete 11/21/18 18:25 Urine,Clean Catch Urine Culture - Final Klebsiella Pneumoniae Complete 11/21/18 20:20 Rectum - Final NO CARBAPENEM-RESISTANT ENTEROBACTERI... Complete Current Medications Medications (Trade) Dose Ordered Sig/Danielle Route PRN Reason Start Time Stop Time Status Last Admin Dose Admin Acetaminophen (Tylenol) 650 mg Q4H PRN ORAL Mild Pain/Temp > 100.5 11/21/18 22:30 12/21/18 22:29 11/24/18 10:50 Acetaminophen/ Hydrocodone Bitart ([place] 5/325) 1 tab Q6H PRN ORAL Severe Pain (Pain Scale 7-10) 11/21/18 22:30 11/28/18 22:29 11/26/18 01:56 Ceftriaxone Sodium 1 gm/ Dextrose 55 ml @ 110 mls/hr Q24H IVPB 11/22/18 09:00 11/29/18 08:59 11/25/18 11:06 Ondansetron HCl (Zofran) 4 mg Q4H PRN IVP Nausea & Vomiting 11/21/18 22:30 12/21/18 22:29 11/25/18 11:06 Sodium Bicarbonate 50 ml/ Dextrose/Sodium Chloride 1,050 ml @ 75 mls/hr Q14H IV 11/25/18 22:00 12/25/18 21:59 11/25/18 22:06 Laboratory Tests 11/26/18 05:28: White Blood Count 9.0, Red Blood Count 4.03L, Hemoglobin 11.9L, Hematocrit 35.6L , Mean Corpuscular Volume 88, Mean Corpuscular Hemoglobin 29.6, Mean Corpuscular Hemoglobin Concent 33.5, Red Cell Distribution Width 11.0L, Platelet Count 421, Mean Platelet Volume 5.1L, Neutrophils (%) (Auto) 69.7, Lymphocytes (%) (Auto) 20.5, Monocytes (%) (Auto) 6.1, Eosinophils (%) (Auto) 3.0, Basophils (%) (Auto) 0.6, Sodium Level 137, Potassium Level 4.0, Chloride Level 104, Carbon Dioxide Level 27, Anion Gap 6, Blood Urea Nitrogen 12, Creatinine 1.0, Estimat Glomerular Filtration Rate 55.5, Glucose Level 128H, Calcium Level 9.1 Height (Feet): 5 Height (Inches): 1.00 Weight (Pounds): 167 Objective exam stable terry indwelling, urine is slightly blood-tinged KUB (11/23) noted and films reviewed Marv Clark MD Nov 26, 2018 07:56
[2018-11-26 08:00] VITALS: BP 120/57
[2018-11-26] MEDS: cefTRIAXone 1 GM in D5W 55 ML IVPB SCH (08:22)
--- NOTE | 2018-11-26 10:38 | NUR ---
NURSE NOTES: According to MD Clark order, Powell removed. Patient provided and teaching given how to use strain to all urine. Will keep monitoring [id number]. assistant basketball coach Vaishnavi is aware.
--- NOTE | 2018-11-26 11:30 | Pulmonology Progress Note ---
Assessment/Plan Problems: (1) Hematuria, gross (2) Renal colic Assessment/Plan terry is out has still hematuria improving check h/h prbc prn analgesics dc home when OK with urology Subjective ROS Limited/Unobtainable: No Constitutional: Reports: no symptoms HEENT: Repors: no symptoms Allergies: Coded Allergies: No Known Allergies (Unverified , 11/14/18) Objective Last 24 Hour Vital Signs Date Time Temp Pulse Resp B/P (MAP) Pulse Ox O2 Delivery O2 Flow Rate FiO2 11/26/18 10:36 Room Air 11/26/18 09:00 Room Air 11/26/18 08:00 97.6 65 18 120/57 (78) 97 11/26/18 07:29 72 22 98 11/26/18 04:00 98.8 68 16 117/58 (77) 97 11/26/18 00:00 97.5 83 16 124/61 (82) 100 11/25/18 21:00 99.1 80 16 115/61 (79) 96 11/25/18 21:00 Room Air 11/25/18 16:00 97.9 11/25/18 16:00 98.8 78 18 135/76 (95) 96 11/25/18 12:00 97.9 69 18 128/72 (90) 96 Intake and Output 11/25/18 11/26/18 18:59 06:59 Intake Total 2110 ml 600 ml Output Total 700 ml 1000 ml Balance 1410 ml -400 ml Intake Oral 200 ml IV Total 1910 ml 600 ml Output Urine Total 650 ml 1000 ml Estimated Blood Loss 50 ml General Appearance: WD/WN HEENT: normocephalic, atraumatic Respiratory/Chest: chest wall non-tender, lungs clear Breasts: no masses Cardiovascular: normal peripheral pulses, normal rate Abdomen: normal bowel sounds, soft, non tender Genitourinary: normal external genitalia Extremities: no clubbing Skin: no rash Laboratory Tests 11/26/18 05:28: White Blood Count 9.0, Red Blood Count 4.03L, Hemoglobin 11.9L, Hematocrit 35.6L , Mean Corpuscular Volume 88, Mean Corpuscular Hemoglobin 29.6, Mean Corpuscular Hemoglobin Concent 33.5, Red Cell Distribution Width 11.0L, Platelet Count 421, Mean Platelet Volume 5.1L, Neutrophils (%) (Auto) 69.7, Lymphocytes (%) (Auto) 20.5, Monocytes (%) (Auto) 6.1, Eosinophils (%) (Auto) 3.0, Basophils (%) (Auto) 0.6, Sodium Level 137, Potassium Level 4.0, Chloride Level 104, Carbon Dioxide Level 27, Anion Gap 6, Blood Urea Nitrogen 12, Creatinine 1.0, Estimat Glomerular Filtration Rate 55.5, Glucose Level 128H, Calcium Level 9.1 Current Medications Medications (Trade) Dose Ordered Sig/Danielle Route PRN Reason Start Time Stop Time Status Last Admin Dose Admin Acetaminophen (Tylenol) 650 mg Q4H PRN ORAL Mild Pain/Temp > 100.5 11/21/18 22:30 12/21/18 22:29 11/24/18 10:50 Acetaminophen/ Hydrocodone Bitart ([place] 5/325) 1 tab Q6H PRN ORAL Severe Pain (Pain Scale 7-10) 11/21/18 22:30 11/28/18 22:29 11/26/18 01:56 Ceftriaxone Sodium 1 gm/ Dextrose 55 ml @ 110 mls/hr Q24H IVPB 11/22/18 09:00 11/29/18 08:59 11/26/18 08:22 Ondansetron HCl (Zofran) 4 mg Q4H PRN IVP Nausea & Vomiting 11/21/18 22:30 12/21/18 22:29 11/25/18 11:06 Sodium Bicarbonate 50 ml/ Dextrose/Sodium Chloride 1,050 ml @ 75 mls/hr Q14H IV 11/25/18 22:00 12/25/18 21:59 11/25/18 22:06 Kala Bhat MD Nov 26, 2018 11:30
[2018-11-26 12:00] VITALS: BP 112/63
[2018-11-26] MEDS: Sodium Bicarbonate 50 ML in D5 1/2NS 1,000 ML IV SCH (12:00)
--- NOTE | 2018-11-26 12:50 | NUR ---
CASE MANAGEMENT: REVIEW 11/26/2018 SI:CALCULUS IN URETHRA. POD# 1 Cystoscopy, left ureteroscopy, laser lithotripsy, shockwave lithotripsy, retrograde pyelogram, placement of double-J stent T 97.6 HR 65 RR 18 B/P 120/57 SATS 97% ON RA GLU 128 IS:SODIUM BICARB IV 75 mL/HR CEFTRIAXONE IV Q24H MED/SURG STATUS
[2018-11-26 16:00] VITALS: BP 138/72
--- NOTE | 2018-11-26 16:49 | Internal Med Progress Note ---
Subjective Physician Name Dion Monterroso Attending Physician Dion Monterroso MD Current Medications Medications (Trade) Dose Ordered Sig/Danielle Route PRN Reason Start Time Stop Time Status Last Admin Dose Admin Acetaminophen (Tylenol) 650 mg Q4H PRN ORAL Mild Pain/Temp > 100.5 11/21/18 22:30 12/21/18 22:29 11/24/18 10:50 Acetaminophen/ Hydrocodone Bitart ([place] 5/325) 1 tab Q6H PRN ORAL Severe Pain (Pain Scale 7-10) 11/21/18 22:30 11/28/18 22:29 11/26/18 01:56 Ceftriaxone Sodium 1 gm/ Dextrose 55 ml @ 110 mls/hr Q24H IVPB 11/22/18 09:00 11/29/18 08:59 11/26/18 08:22 Ondansetron HCl (Zofran) 4 mg Q4H PRN IVP Nausea & Vomiting 11/21/18 22:30 12/21/18 22:29 11/25/18 11:06 Sodium Bicarbonate 50 ml/ Dextrose/Sodium Chloride 1,050 ml @ 75 mls/hr Q14H IV 11/25/18 22:00 12/25/18 21:59 11/26/18 12:00 Allergies: Coded Allergies: No Known Allergies (Unverified , 11/14/18) Subjective Awake, alert, responsive, complains about left flank tenderness, no nausea, no vomiting, no chest pain, no shortness of breath. Objective Last Vital Signs Date Time Temp Pulse Resp B/P (MAP) Pulse Ox O2 Delivery O2 Flow Rate FiO2 11/26/18 16:00 98.6 84 17 138/72 (94) 97 11/26/18 10:36 Room Air 11/25/18 10:08 3 Laboratory Tests Test 11/26/18 05:28 White Blood Count 9.0 K/UL (4.8-10.8) Red Blood Count 4.03 M/UL (4.20-5.40) L Hemoglobin 11.9 G/DL (12.0-16.0) L Hematocrit 35.6 % (37.0-47.0) L Mean Corpuscular Volume 88 FL (80-99) Mean Corpuscular Hemoglobin 29.6 PG (27.0-31.0) Mean Corpuscular Hemoglobin Concent 33.5 G/DL (32.0-36.0) Red Cell Distribution Width 11.0 % (11.6-14.8) L Platelet Count 421 K/UL (150-450) Mean Platelet Volume 5.1 FL (6.5-10.1) L Neutrophils (%) (Auto) 69.7 % (45.0-75.0) Lymphocytes (%) (Auto) 20.5 % (20.0-45.0) Monocytes (%) (Auto) 6.1 % (1.0-10.0) Eosinophils (%) (Auto) 3.0 % (0.0-3.0) Basophils (%) (Auto) 0.6 % (0.0-2.0) Sodium Level 137 MMOL/L (136-145) Potassium Level 4.0 MMOL/L (3.5-5.1) Chloride Level 104 MMOL/L (98-107) Carbon Dioxide Level 27 MMOL/L (21-32) Anion Gap 6 mmol/L (5-15) Blood Urea Nitrogen 12 mg/dL (7-18) Creatinine 1.0 MG/DL (0.55-1.30) Estimat Glomerular Filtration Rate 55.5 mL/min (>60) Glucose Level 128 MG/DL (74-106) H Calcium Level 9.1 MG/DL (8.5-10.1) Intake and Output 11/25/18 11/26/18 19:00 07:00 Intake Total 2110 ml 600 ml Output Total 700 ml 1000 ml Balance 1410 ml -400 ml Intake Oral 200 ml IV Total 1910 ml 600 ml Output Urine Total 650 ml 1000 ml Estimated Blood Loss 50 ml Objective General: No acute distress, awake and alert HEENT: NCAT, sclera anicteric, PERRL, EOMI. Neck: Supple, no significant jugular venous distention, Lungs: Good inspiratory effort, no accessory muscle use, clear to auscultation bilaterally, no Wheeze or Rales. Heart: Regular rate and rhythm, normal S1/S2, no murmurs. Abdomen: soft, nontender, nondistended. Normoactive bowel sounds, complained about left CVA tenderness. / Rectal: Refused and deferred. Extremities: No Cyanosis , clubbing or edema. Neuro: A&O x 3, Able to move all extremities Skin: warm, no rashes or lesions Psych: Normal mood and affect Assessment/Plan Assessment/Plan ASSESSMENT: This is a 68-year-old female. 1. Hematuria. 2. Left ureteral calculus. 3. Hydronephrosis of the left ureter S/P left ureteroscopy, stent placement and lithotripsy 11/25/18- 4. Hematuria. 5. Klebsiella pneumoniae UTI. TREATMENT: A Urology consultation has been obtained with Dr. Marv Clark. ABX= ceftriaxone. DC Planning soon Dion Monterroso MD Nov 26, 2018 16:49
--- NOTE | 2018-11-26 18:00 | NUR ---
NURSE NOTES: Urine Strain Q15 minute, no stone found. Will keep monitoring
--- NOTE | 2018-11-26 19:48 | NUR ---
HAND-OFF: Report given to CLARISA Hanks.
--- NOTE | 2018-11-26 19:50 | NUR ---
NURSE NOTES: Patient awake, alert x4 Haitian speaking; on room air, no sign of distress nor shortness of breath; no s/sx of chest pain; IV L-Hand 20G patent, asymptomatic running D5 1/2NS with sodium bicarbonate at 75cc; Incentive spirometer at the bed side, encouraged pt to use IS 10 times/hour, bed locked and in lowest position, side rails up x2, call light within reach; will keep monitoring, informed pt per Dr Clark to call us for assistance to restroom and to not flush to allow us to strain urine q 15 min. Pt verbalized understanding. Will continue to monitor
[2018-11-26 20:00] VITALS: BP 121/75
--- NOTE | 2018-11-26 20:06 | NUR ---
NURSE NOTES: Pt has slight fever at 100.4 and pain level of 7/10. Giving [place] for pain, but may also reduce temperature.
--- NOTE | 2018-11-26 21:00 | NUR ---
NURSE NOTES: Pt fever reduced to 98.1 Straining urine- pinkish color, no sediment, no stones.
[2018-11-27] VITALS: BP 116/70
[2018-11-27] MEDS: Sodium Bicarbonate 50 ML in D5 1/2NS 1,000 ML IV SCH ×2 (03:19→16:00)
[2018-11-27 04:10] VITALS: BP 115/72
--- NOTE | 2018-11-27 07:23 | NUR ---
HAND-OFF: Report given to CLARISA Anand
[2018-11-27 08:00] VITALS: BP 132/67
--- NOTE | 2018-11-27 08:00 | NUR ---
NURSE NOTES: received pt in bed, awake, alert, oriented. Greek speaking. No complaint of pain or discomfort. Receives IVF NaHCO2 50cc in D5 1/2 NS 1000cc, @ 75cc/hr RH access. Bed locked at the lowest position possible, call light within easy reach, siderails x2. Will continue to monitor pt and follow up with the POC.
--- NOTE | 2018-11-27 09:09 | Urology Progress Note ---
Assessment/Plan Assessment/Plan: 1. Left-sided renal colic. 2. Nephrolithiasis. 3. Hydronephrosis. 4. Hematuria. 5. Pyuria and possible UTI. 6. Proteinuria. 7. History of mild lower urinary tract symptoms. 8. Adrenal adenoma. 9. POD # 2, left ureteroscopy/litho/stent monitor clinically abx as ordered, can switch to PO? alkalinization strain urine OK to DC home from standpoint ureteral stent to be removed as outpt, d/w pt fully through informatica developer d/w primary service Subjective Allergies: Coded Allergies: No Known Allergies (Unverified , 11/14/18) Subjective feels fair, terry removed yest, mild dysuria Objective Last 24 Hour Vital Signs Date Time Temp Pulse Resp B/P (MAP) Pulse Ox O2 Delivery O2 Flow Rate FiO2 11/27/18 04:10 98.9 74 18 115/72 (86) 96 11/27/18 00:00 99.6 75 18 116/70 (85) 98 11/26/18 21:00 98.1 11/26/18 21:00 Room Air 11/26/18 20:00 100.7 88 18 121/75 (90) 95 11/26/18 16:00 98.6 84 17 138/72 (94) 97 11/26/18 12:00 98.0 79 18 112/63 (79) 98 11/26/18 10:36 Room Air Intake and Output 11/26/18 11/27/18 19:00 07:00 Intake Total 2210 ml 3400 ml Output Total 1050 ml Balance 2210 ml 2350 ml Intake Oral 1500 ml 1500 ml IV Total 710 ml 1100 ml Other 800 ml Output Urine Total 1000 ml Estimated Blood Loss 50 ml # Voids 4 2 # Bowel Movements 1 Microbiology Date/Time Source Procedure Growth Status 11/21/18 20:20 Nasal Nares MRSA Culture - Final NO METHICILLIN RESISTANT STAPH AUREUS... Complete 11/21/18 18:25 Urine,Clean Catch Urine Culture - Final Klebsiella Pneumoniae Complete 11/21/18 20:20 Rectum - Final NO CARBAPENEM-RESISTANT ENTEROBACTERI... Complete Current Medications Medications (Trade) Dose Ordered Sig/Danielle Route PRN Reason Start Time Stop Time Status Last Admin Dose Admin Acetaminophen (Tylenol) 650 mg Q4H PRN ORAL Mild Pain/Temp > 100.5 11/21/18 22:30 12/21/18 22:29 11/24/18 10:50 Acetaminophen/ Hydrocodone Bitart ([place] 5/325) 1 tab Q6H PRN ORAL Severe Pain (Pain Scale 7-10) 11/21/18 22:30 11/28/18 22:29 11/26/18 20:06 Ceftriaxone Sodium 1 gm/ Dextrose 55 ml @ 110 mls/hr Q24H IVPB 11/22/18 09:00 11/29/18 08:59 11/26/18 08:22 Ondansetron HCl (Zofran) 4 mg Q4H PRN IVP Nausea & Vomiting 11/21/18 22:30 12/21/18 22:29 11/25/18 11:06 Sodium Bicarbonate 50 ml/ Dextrose/Sodium Chloride 1,050 ml @ 75 mls/hr Q14H IV 11/25/18 22:00 12/25/18 21:59 11/27/18 03:19 Height (Feet): 5 Height (Inches): 1.00 Weight (Pounds): 167 Objective exam stable KUB (11/23) noted and films reviewed Marv Clark MD Nov 27, 2018 09:09
[2018-11-27] MEDS: cefTRIAXone 1 GM in D5W 55 ML IVPB SCH (09:52)
[2018-11-27 11:43] VITALS: BP 135/76
--- NOTE | 2018-11-27 11:46 | NUR ---
NURSE NOTES: strained all urine, presenting dysuria and scanty amount of dark orange sand-like sediments in pink-orange color urine x2 times.
--- NOTE | 2018-11-27 13:36 | Internal Med Progress Note ---
Subjective Date of Service: Nov 27, 2018 Physician Name Carlo Crocker Attending Physician Dion Monterroso MD Current Medications Medications (Trade) Dose Ordered Sig/Danielle Route PRN Reason Start Time Stop Time Status Last Admin Dose Admin Acetaminophen (Tylenol) 650 mg Q4H PRN ORAL Mild Pain/Temp > 100.5 11/21/18 22:30 12/21/18 22:29 11/27/18 11:26 Acetaminophen/ Hydrocodone Bitart ([place] 5/325) 1 tab Q6H PRN ORAL Severe Pain (Pain Scale 7-10) 11/21/18 22:30 11/28/18 22:29 11/26/18 20:06 Ceftriaxone Sodium 1 gm/ Dextrose 55 ml @ 110 mls/hr Q24H IVPB 11/22/18 09:00 11/29/18 08:59 11/27/18 09:52 Ondansetron HCl (Zofran) 4 mg Q4H PRN IVP Nausea & Vomiting 11/21/18 22:30 12/21/18 22:29 11/25/18 11:06 Sodium Bicarbonate 50 ml/ Dextrose/Sodium Chloride 1,050 ml @ 75 mls/hr Q14H IV 11/25/18 22:00 12/25/18 21:59 11/27/18 03:19 Allergies: Coded Allergies: No Known Allergies (Unverified , 11/14/18) ROS Limited/Unobtainable: No Constitutional: Reports: no symptoms HEENT: Reports: no symptoms Cardiovascular: Reports: no symptoms Respiratory: Reports: no symptoms Gastrointestinal/Abdominal: Reports: no symptoms Genitourinary: Reports: no symptoms Neurologic/Psychiatric: Reports: no symptoms Subjective 68 YO F admitted with hematuria. Cover for Int med-Dr Monterroso. S/P left ureteroscopy, lithotripsy and stent placement 11/25/18 Objective Last Vital Signs Date Time Temp Pulse Resp B/P (MAP) Pulse Ox O2 Delivery O2 Flow Rate FiO2 11/27/18 11:56 97.9 11/27/18 11:43 78 20 135/76 (95) 95 11/27/18 09:00 Room Air 11/25/18 10:08 3 Intake and Output 11/26/18 11/27/18 18:59 06:59 Intake Total 2135 ml 3550 ml Output Total 1050 ml Balance 2135 ml 2500 ml Intake Oral 1500 ml 1500 ml IV Total 635 ml 1250 ml Other 800 ml Output Urine Total 1000 ml Estimated Blood Loss 50 ml # Voids 4 2 # Bowel Movements 1 Objective PHYSICAL EXAMINATION: GENERAL: The patient is a well-developed and well-nourished female, in no apparent distress. HEENT: Eyes, pupils are equal and responsive to light and accommodation. Extraocular movements are intact. NECK: Supple without lymphadenopathy. CHEST: Lungs are clear to auscultation bilaterally without wheezes or rales. CARDIOVASCULAR: Regular rhythm and rate. S1 and S2 are normal without murmurs, rubs, or gallops. ABDOMEN: Soft, nontender, and nondistended. Positive bowel sounds. No evidence of hepatosplenomegaly. Currently, no rebound or guarding noted. EXTREMITIES: Negative for clubbing, cyanosis, or edema. RECTAL/GENITAL: Not performed. NEUROLOGIC: Cranial nerves II through XII are grossly intact without focal deficits. Motor strength is 5/5 bilaterally. Deep tendon reflexes are 2+ plantar. Assessment/Plan Assessment/Plan ASSESSMENT: This is a 68-year-old female. 1. Hematuria. 2. Left ureteral calculus. 3. Hydronephrosis of the left ureter. 4. Hematuria. 5. UTI TREATMENT: 1. Hematuria/left ureteral calculus/left hydronephrosis. A Urology consultation has been obtained with Dr. Marv Clark. S/P left ureteroscopy, stent placement and lithotripsy 11/25/18- see Urology note ABX= ceftriaxone. Urine culture =Klebsiella pneumoniae Discharge home today Carlo Crocker MD Nov 27, 2018 13:36
[2018-11-27] MEDS ORDERED: CEFUROXIME250 MG PO (13:37)
[2018-11-27] MEDS: HYDROcodone/Acetamin 5/325 tab ORAL PRN (15:20)
[2018-11-27 16:00] VITALS: BP 131/72
--- NOTE | 2018-11-27 19:10 | NUR ---
NURSE NOTES: patient has been discharged to home, left with step daughter Delphine, by wheelchair to hospital lobby wheeled by HEVER Zaman. Pt signed off belongings list and left with all her belongings. Given discharge packet with informational pamphlet regarding her condition and medication ordered. Given also a sheet of prescription, educated regarding dosage and frequency to take the tablet of antibiotic PO ordered. Given also info on the f/u appointments need to be made to zayda Crocker and Amber. Taken IV access off, no bleeding noted after compression. In stable condition and VS, no complaint of pain or discomfort.
--- NOTE | 2018-11-27 22:15 | Pulmonology Progress Note ---
Assessment/Plan Problems: (1) Hematuria, gross (2) Renal colic Assessment/Plan terry is out has still hematuria improving check h/h prbc prn analgesics dc home when OK with urology Subjective ROS Limited/Unobtainable: No Constitutional: Reports: no symptoms HEENT: Repors: no symptoms Respiratory: Reports: no symptoms Allergies: Coded Allergies: No Known Allergies (Unverified , 11/14/18) Objective Last 24 Hour Vital Signs Date Time Temp Pulse Resp B/P (MAP) Pulse Ox O2 Delivery O2 Flow Rate FiO2 11/27/18 16:00 98.0 74 17 131/72 (91) 96 11/27/18 15:50 98.0 11/27/18 11:56 97.9 11/27/18 11:43 97.9 78 20 135/76 (95) 95 11/27/18 09:00 Room Air 11/27/18 08:00 98.2 88 18 132/67 (88) 96 11/27/18 04:10 98.9 74 18 115/72 (86) 96 11/27/18 00:00 99.6 75 18 116/70 (85) 98 Intake and Output 11/26/18 11/27/18 19:00 07:00 Intake Total 2210 ml 3475 ml Output Total 1050 ml Balance 2210 ml 2425 ml Intake Oral 1500 ml 1500 ml IV Total 710 ml 1175 ml Other 800 ml Output Urine Total 1000 ml Estimated Blood Loss 50 ml # Voids 4 2 # Bowel Movements 1 General Appearance: cachetic HEENT: normocephalic, atraumatic Respiratory/Chest: chest wall non-tender, lungs clear Cardiovascular: normal peripheral pulses, normal rate Abdomen: normal bowel sounds Genitourinary: normal external genitalia 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
--- NOTE | 2018-11-29 13:20 | Discharge Summary ---
Discharge Summary Discharge Summary _ DATE OF ADMISSION: 11/21/2018 DATE OF DISCHARGE: 11/27/2018 DISCHARGED BY: Dr. Monterroso REASON FOR ADMISSION: 68 years old female with past medical history of left ureteropelvic junction calculus , presented with a chief complaint of blood in the urine. Patient was admitted to [facility] prior , from November 14 to November 17 with a left ureteropelvic junction calculus. During that admission patient did not undergo cystoscopy or ureteroscopy. Subsequent abdominal ultrasound failed to demonstrate presence of stone. At this time patient reported one day history of blood in the urine. Upon evaluation vital signs were stable. CT of the abdomen and pelvis revealed 14 x 7 mm proximal left ureteral calculus. Resultant moderate left hydronephrosis and mild proximal hydroureter. Urinalysis revealed +3 protein, evidence of urinary tract infection; +5 blood. Laboratory work-up revealed no leukocytosis, stable hemoglobin and hematocrit. Stable electrolytes. BUN 15, creatinine 1.2. Patient received IV fluids , antiemetics and analgesic. Patient started on empiric antibiotic for UTI. Patient subsequently admitted to medical surgical floor for further management. CONSULTANTS: pulmonary/critical care Dr. Bhat urology [facility] COURSE: Patient admitted to the floor. Patient started on empiric antibiotics and IV fluids. Urologist closely followed. Pain management was addressed. Symptomatic treatment provided. KUB on 11/23 did not show any proximal left ureteral calculus, described on recent CT scan , possibly occult or may have passed. Urine culture revealed Klebsiella. Patient was continued on antibiotics. Patient did not show much clinical improvement and continued to have hematuria. On 11/25 patient subsequently undergone cystoscopy with left ureteroscopy, laser lithotripsy, shockwave lithotripsy retrograde pyelogram and placement of double- J stent. Patient will need to follow-up with urologist as outpatient for stent removal. Pain management was addressed. Patient was able to tolerate diet, ambulated without difficulties and voided. Patient remained hemodynamically stable. Hemoglobin and hematocrit were closely monitored with goal to keep hemoglobin above 7. Prior to discharge hemoglobin 11.9, hematocrit 25.6. Renal parameters remained at the baseline, stable. Electrolytes remained stable. Patient clinically stabilized and was ready for discharge. Continue antibiotics for additional 7 days at home FINAL DIAGNOSES: UTI with Klebsiella Obstructed left proximal ureteral calculus with hydronephrosis Status post cystoscopy, left ureteroscopy, laser lithotripsy, shockwave lithotripsy, retrograde pyelogram, placement of double-J stent Left-sided renal colic Hematuria DISCHARGE MEDICATIONS: See Medication Reconciliation list. DISCHARGE INSTRUCTIONS: Patient was discharged home . Follow up with primary care provider in one week. Follow up with urologist as advised. patietn will need outpatient stent removal later- per urologist. I have been assigned to dictate discharge summary for this account. I was not involved in the patient's management. Cyndie David NP Nov 29, 2018 13:20
== END 2018-11-27 19:05 | disposition home or self-care (01) | DRG 661 ==
LOC: EMR 18:00 → 4E 19:39 → EDBEDREQ 20:36
PROC: 0T778DZ Dilation of Left Ureter with Intraluminal Device, Via Natural or Artificial Opening Endoscopic (ICD-10-PCS; principal; 2018-11-25 07:00)
PROC: 0TF78ZZ Fragmentation in Left Ureter, Via Natural or Artificial Opening Endoscopic (ICD-10-PCS; principal; 2018-11-25 07:00)
PROC: BT1FZZZ Fluoroscopy of Left Kidney, Ureter and Bladder (ICD-10-PCS; principal; 2018-11-25 07:00)
DX: N13.2 Hydronephrosis with renal and ureteral calculous obstruction (principal); N39.0 Urinary tract infection, site not specified; R31.0 Gross hematuria; B96.1 Klebsiella pneumoniae [K. pneumoniae] as the cause of diseases classified elsewhere; D35.00 Benign neoplasm of unspecified adrenal gland
CPT/HCPCS: 36415; 74018; 74176; 80048; 80053; 81003; 82360; 83735; 84100; 85025; 85610; 85730; 87081; 87086; 87181; 94003; 94150; 96361; 96365; 96375; 99285; J2250; J2405; J2710